=== PATIENT | male | born 1940 | race Caucasian/White ===

== ENCOUNTER 2019-10-02 12:02 | Inpatient (IN) | payer BC, OTHER ==
--- NOTE | 2019-10-02 12:11 | PDOC ---
History of Present Illness - General Chief Complaint: Shortness of Breath Stated Complaint: SHORT OF BREATH Time Seen by Provider: 10/02/19 12:07 History Source: Patient, Family Exam Limitations: No Limitations - History of Present Illness Initial Comments: 10/02/19 12:10 HPI 79-year-old male with history of aortic stenosis s/p bovine valve replacement in 2016 (only on ASA), hypertension, hyperlipidemia, BPH presenting from urgent care complaining of fevers, shortness of breath and dizziness x 3 days. He states he has been experiencing shortness of breath with mild exertion/walking, associated with lightheadedness and dizziness; improves with rest and sitting still. He has been having intermittent fevers x 2 days, Tmax 102, today no further episodes. today he noticed in the ED that his LLE was swollen and red, but denies any pain/calf tenderness. no prolonged immobilization or h/o PE/DVT. He states that every so often his legs get swollen, but denies noticing in the preceding days to weeks. he went to urgent care [facility], where he had covid 19 swab done, sent to the ED for further evaluation. Denies chest pain, palpitation, weakness, N, V, D, abdominal pain, bladder and bowel problems, focal weakness/paresthesias. No sick contacts or travel to other states except [place] or globally. No new changes in medications. Allergies: Sulfa Past Medical History/ aortic stenosis s/p bovine valve replacement (only on ASA), hypertension, hyperlipidemia, BPH PSH: knee replacements and bovine aortic valve replacement Social history: Lives with family. No tobacco or drug use. occ ETOH/wine use socially Meds: as documented in EMR PMD: Dr Saunders Rip/Mould Operator: Dr Avina Review of systems Constitutional: +fevers. No weakness HEENT: +dizziness. no headache. No congestion. No visual/hearing disturbances. CVS: no cp or syncope. Resp: +shortness of breath. No cough. no hemoptysis and no wheezing. Gastrointestinal: no abdominal pain, nausea, vomiting, diarrhea. Genitourinary: no urinary sx, hematuria. MUSCULOSKELETAL: No joint pain and swelling. No neck or back pain. SKIN: +leg swelling and redness Hematologic: no easy bruising/bleeding. NEUROLOGIC: +dizziness. No headache, LOC or altered mental status. No weakness, numbness or tingling. Psych: no anxiety or depression Allergic/Immunologic: +medication allergies All other systems reviewed and negative, or as documented in HPI. Physical exam General: Well appearing, awake and alert, NAD. HEENT: NCAT, PERRL, EOMI, clear conjunctiva, anicteric, moist mucus membranes, clear oropharynx, no oral lesions.. Neck: neck supple, FROM Resp: +scant wheezing bilaterally, no respiratory distress CVS: RRR, faint holosystolilc murmurs, 2+ peripheral pulses throughout, 2+ BLE pitting peripheral edema Abdomen: soft, NTND, no rebound or guarding. Back: nontender, normal inspection and ROM MSK: BLE pitting edema, LLE>RLE, DAVIS x4, ROM intact. No clubbing or cyanosis. normal bulk and tone. Extremities: no calf tenderness; BLE pitting edema, nontender with LLE>RLE, LLE erythema and pitting edema. Neuro: alert, oriented appropriately; no focal neurologic deficits, speech clear Psych: Calm and cooperative Skin: warm and well perfused, cap refill <2 sec, normal color, no rash or skin discoloration. +LLE erythema, warmth and pitting edema. 10/02/19 12:11 10/02/19 12:30 10/02/19 13:42 10/02/19 13:47 Past History - Medical History Allergies/Adverse Reactions: Allergies Allergy/AdvReac Type Severity Reaction Status Date / Time Sulfa (Sulfonamide Allergy Verified 10/02/19 12:23 Antibiotics) Home Medications: Ambulatory Orders Amlodipine Besylate [Norvasc -] 5 mg PO DAILY #0 tablet 11/26/12 Aspirin Coated [Ecotrin -] 81 mg PO DAILY #0 tablet.ec 11/26/12 Cholecalciferol (Vitamin D3) [Vitamin D-3] 1,000 unit PO DAILY #0 capsule 11/26/12 Pravastatin Sodium [Pravachol -] 20 mg PO HS #0 tablet 11/26/12 Captopril/Hydrochlorothiazide [Capozide 50/25 -] 1 combo PO DAILY 10/02/19 Tamsulosin HCl [Flomax -] 0.4 mg PO HS 10/02/19 Anemia: No Asthma: No Cancer: Yes (prostate 2009-TREATED WITH SEED) Cardiac Disorders: No CVA: No COPD: No CHF: No Dementia: No Diabetes: No GI Disorders: No Disorders: Yes (HX PROSTATE CA) HTN: Yes Hypercholesterolemia: Yes Liver Disease: No Seizures: No Thyroid Disease: No - Surgical History Abdominal Surgery: Yes (HERNIA) Appendectomy: No Cardiac Surgery: No Cholecystectomy: No Lung Surgery: No Neurologic Surgery: No Orthopedic Surgery: Yes (bi-lateral knee replacements) - Psycho-Social/Smoking History Smoking Status: Yes Smoking History: Former smoker Have you smoked in the past 12 months: No Number of Cigarettes Smoked Daily: 0 If you are a former smoker, when did you quit?: OVER 30 YRS Heart Score/ECG Review #1 ECG reviewed & interpreted by me at: 12:55 General ECG Interpretation: Sinus Rhythm, Normal Rate, Normal Intervals Compared to previous ECG there are: No significant change 10/02/19 13:41 EKG normal sinus rhythm 85 bpm, no interval abnormalities, narrow QRS, ST and T wave segments and morphology normal. Nonspecific T wave abnormalities, poor r wave progression, unchanged from prior ED Treatment Course - LABORATORY CBC & Chemistry Diagram: 10/02/19 12:18 10/02/19 12:18 - RADIOLOGY Radiology Studies Ordered: Category Date Time Status CHEST X-RAY PORTABLE* [RAD] Stat Radiology 10/02/19 12:09 Ordered Medical Decision Making - Medical Decision Making 10/02/19 12:36 DDx SOB: ACS, PE, PTX, CHF, COPD exac, pulmonary edema, pleurisy, pneumonia, viral syndrome. effusion. anemia, electrolyte/metabolic derangements. valvular heart disease, DVT, cellulitis, superficial thrombophlebitis prior admit and echo/ekg reviewed. Prior echo in 2016 reviewed with low normal left ventricular systolic function, septal motion abnormality consistent with his prior postoperative management, AVR done in 2016, right ventricular systolic function is grossly normal, some mitral calcification is noted and mitral valve thickening and mild MR, no pe ricardial effusion at that time Interpreted by ED Physician: CXR (1 view): no acute abnormality: no infiltrates, bones appear intact and structures normal alignment, cardiac silhouette within normal limits. no free air under diaphragm, no pneumothorax. sternal sutures in place. EKG normal sinus rhythm 85 bpm, no interval abnormalities, narrow QRS, ST and T wave segments and morphology normal. Nonspecific T wave abnormalities, poor r wave progression, unchanged from prior labs and lytes wnl, magnesium repleted (low ~1.7) trop is elevated 0.11, NSTEMI, atypical sx. known cardiac history such as . now with SOB/dizziness, can be anginal sx vs worsening , with last repair ~4-5 years ago per patient. 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 also leukocytosis 14K, Cellulitis? vs covid 19 with his sx of SOB/fevers (no cough or congestion or viral sx per se) duplex_limited study of BLE. limited in the posterior tibial veins, otherwise no gross DVT noted. LLE erythema, asymmetrical, treat as cellulitis. h/o MRSA, give vancomycin, ancef for cellulitis coverage and reassess. could be possible source of fever. r/o covid 19 infection as well given his respiratory sx (SOB) and fever Plan for admit observation, NSTEMI/r/o covid and LLE cellulitis, to r/o ischemia, serial trops and EKG/tele monitoring. ASA administered, pain controlled, discussion with patient and family at bedside, made aware of impression and plan, questions answered. Mao tele bed to be arranged s/o to [facility] Villarreal 10/02/19 14:14 Discharge - Discharge Information Problems reviewed: Yes Clinical Impression/Diagnosis: Peripheral edema, NSTEMI (non-ST elevated myocardial infarction), Left leg cellulitis, Suspected 2019 novel coronavirus infection Aortic stenosis Qualifiers: Cardiac valve disease etiology: etiology unspecified Qualified Code(s): I35.0 - Nonrheumatic aortic (valve) stenosis Condition: Fair - Admission Yes - Follow up/Referral Referrals: Ralf Boo MD [Primary Care Provider] - - Patient Discharge Instructions - Post Discharge Activity
[2019-10-02 12:44] LABS: BASO % 0.6 % (0-2.0); EOS % 0.3 % (0-4.5); HEMATOCRIT 41.9 % (35.4-49); HEMOGLOBIN 14.6 GM/dl (11.7-16.9); LYMPH % 6.8 % (8-40); MCH 31.3 pg (25.7-33.7); MCHC 34.9 g/dl (32.0-35.9); MEAN CELL VOLUME 89.6 fl (80-96); MEAN PLT VOLUME 9.6 fl (7.5-11.1); NEUT % 88.3 % (42.8-82.8); PLATELET COUNT 163 K/MM3 (134-434); RBC 4.67 M/mm3 (4.00-5.60); RDW 14.6 % (11.9-15.9); WHITE BLOOD COUNT 14.3 K/mm3 (4.0-10.8)
[2019-10-02 12:48] LABS: ALBUMIN 3.6 g/dl (3.4-5.0); BILIRUBIN,TOTAL 1.3 mg/dl (0.2-1); CALCIUM 8.4 mg/dl (8.5-10); MAGNESIUM 1.7 mg/dL (1.8-2.4); POTASSIUM 3.4 mmol/L (3.5-5.1); TOT PROT 6.8 g/dl (6.4-8.2)
[2019-10-02] MEDS ORDERED: MAGNESIUM OXIDE 400 MG TABLET (FP) PO ONE (13:01)
[2019-10-02] MEDS ORDERED: ASPIRIN 81 MG CHEWABLE TABLETS PO ONE (13:04)
[2019-10-02 13:12] LABS: ACTIVATED PTT 27.7 SECONDS (25.2-36.5)
[2019-10-02] MEDS ORDERED: ASPIRIN 81 MG CHEWABLE TABLETS ONE (13:15)
[2019-10-02 13:16] LABS: INR 1.16 (0.82-1.09)
[2019-10-02 13:32] LABS: EPITHELIAL CELLS RARE /hpf
[2019-10-02] MEDS ORDERED: VANCOMYCIN 1,500 MG in DEXTROSE 5%-WATER - 250 ML IVPB ONE (13:46)
[2019-10-02] MEDS ORDERED: CEFAZOLIN 1 GM/D5W 1 GM/50 ML BAG IVPB ONE (13:47)
[2019-10-02] MEDS ORDERED: VANCOMYCIN 1,000 MG VIAL (RESTRICTED TO ID ONLY) ONE (14:24)
[2019-10-02] MEDS ORDERED: ceFAZolin SODIUM 1 GM VIAL ONE ×2 (14:24→20:57)
[2019-10-02 14:29] LABS: N-TERMINAL BNP 2207.4 pg/ml (5-450)
[2019-10-02] MEDS ORDERED: VANCOMYCIN 500 MG VIAL (RESTRICTED TO ID ONLY) ONE (14:37)
--- NOTE | 2019-10-02 15:19 | HP ---
CHIEF COMPLAINT: PCP: Dr. Ralf Boo Cardiology: Dr. Avian HISTORY OF PRESENT ILLNESS: ER course was notable for: (1) (2) (3) Recent Travel: PAST MEDICAL HISTORY: Hypertension Hyperlipidemia Aortic stenosis LLE cellulitis, recurrent Prostate cancer Thyroid nodule PAST SURGICAL HISTORY: Bilateral knee replacements Hernia repair Bilateral conjunctivoplasty Social History: Smoking: former, quit 35 years ago Alcohol: Drugs: Allergies Sulfa (Sulfonamide Antibiotics) Allergy (Verified 10/02/19 12:23) UNKNOWN-DOESN'T REMEMBER HOME MEDICATIONS: Home Medications Medication Instructions Recorded Amlodipine Besylate [Norvasc -] 5 mg PO DAILY #0 tablet 11/26/12 Aspirin Coated [Ecotrin -] 81 mg PO DAILY #0 tablet.ec 11/26/12 Cholecalciferol (Vitamin D3) 1,000 unit PO DAILY #0 capsule 11/26/12 [Vitamin D-3] Pravastatin Sodium [Pravachol -] 20 mg PO HS #0 tablet 11/26/12 Captopril/Hydrochlorothiazide 1 combo PO DAILY 10/02/19 [Capozide 50/25 -] Tamsulosin HCl [Flomax -] 0.4 mg PO HS 10/02/19 REVIEW OF SYSTEMS CONSTITUTIONAL: Absent: fever, chills, diaphoresis, generalized weakness, malaise, loss of appetite, weight change HEENT: Absent: rhinorrhea, nasal congestion, throat pain, throat swelling, difficulty swallowing, mouth swelling, ear pain, eye pain, visual changes CARDIOVASCULAR: Absent: chest pain, syncope, palpitations, irregular heart rate, lightheadedness, peripheral edema RESPIRATORY: Absent: cough, shortness of breath, dyspnea with exertion, orthopnea, wheezing, stridor, hemoptysis GASTROINTESTINAL: Absent: abdominal pain, abdominal distension, nausea, vomiting, diarrhea, constipation, melena, hematochezia GENITOURINARY: Absent: dysuria, frequency, urgency, hesitancy, hematuria, flank pain, genital pain MUSCULOSKELETAL: Absent: myalgia, arthralgia, joint swelling, back pain, neck pain SKIN: Absent: rash, itching, pallor HEMATOLOGIC/IMMUNOLOGIC: Absent: easy bleeding, easy bruising, lymphadenopathy, frequent infections ENDOCRINE: Absent: unexplained weight gain, unexplained weight loss, heat intolerance, cold intolerance NEUROLOGIC: Absent: headache, focal weakness or paresthesias, dizziness, unsteady gait, seizure, mental status changes, bladder or bowel incontinence PSYCHIATRIC: Absent: anxiety, depression, suicidal or homicidal ideation, hallucinations. PHYSICAL EXAMINATION Vital Signs - 24 hr 10/02/19 10/02/19 12:03 13:30 Temperature 98.7 F Pulse Rate 88 86 Pulse Rate [ 85 Apical] Respiratory 20 25 H Rate Blood Pressure 126/77 Blood Pressure 145/77 [Right Arm] O2 Sat by Pulse 96 99 Oximetry (%) GENERAL: Awake, alert, and fully oriented, in no acute distress. HEAD: Normal with no signs of trauma. EYES: Pupils equal, round and reactive to light, extraocular movements intact, sclera anicteric, conjunctiva clear. No lid lag. EARS, NOSE, THROAT: Ears normal, nares patent, oropharynx clear without exudates. Moist mucous membranes. NECK: Normal range of motion, supple without lymphadenopathy, JVD, or masses. LUNGS: Breath sounds equal, clear to auscultation bilaterally. No wheezes, and no crackles. No accessory muscle use. HEART: Regular rate and rhythm, normal S1 and S2 without murmur, rub or gallop. ABDOMEN: Soft, nontender, not distended, normoactive bowel sounds, no guarding, no rebound, no masses. No hepatomegaly or splenomegaly. MUSCULOSKELETAL: Normal range of motion at all joints. No bony deformities or tenderness. No CVA tenderness. UPPER EXTREMITIES: 2+ pulses, warm, well-perfused. No cyanosis. No clubbing. No peripheral edema. LOWER EXTREMITIES: 2+ pulses, warm, well-perfused. No calf tenderness. No peripheral edema. NEUROLOGICAL: Cranial nerves II-XII intact. Normal speech. Normal gait. PSYCHIATRIC: Cooperative. Good eye contact. Appropriate mood and affect. SKIN: Warm, dry, normal turgor, no rashes or lesions noted, normal capillary refill. Laboratory Results - last 24 hr 10/02/19 10/02/19 10/02/19 12:18 12:18 12:18 WBC 14.3 H RBC 4.67 Hgb 14.6 Hct 41.9 MCV 89.6 MCH 31.3 MCHC 34.9 RDW 14.6 Plt Count 163 MPV 9.6 Absolute Neuts (auto) 12.6 Neutrophils % 88.3 H Lymphocytes % 6.8 L Monocytes % 4.0 Eosinophils % 0.3 Basophils % 0.6 PT with INR INR PTT (Actin FS) Sodium 133 L Potassium 3.4 L Chloride 98 Carbon Dioxide 26 Anion Gap 9 BUN 25.0 H Creatinine 1.0 Est GFR (CKD-EPI)AfAm 82.60 Est GFR (CKD-EPI)NonAf 71.27 Random Glucose 112 H Calcium 8.4 L Magnesium 1.7 L Total Bilirubin 1.3 H AST 29 ALT 31 Alkaline Phosphatase 56 Creatine Kinase Troponin I 0.11 H B-Natriuretic Peptide 2207.4 H Total Protein 6.8 Albumin 3.6 Urine Color Urine Appearance Urine pH Urine Protein Urine Glucose (UA) Urine Ketones Urine Blood Urine Nitrite Urine Bilirubin Urine Urobilinogen Ur Leukocyte Esterase Urine RBC Urine WBC Ur Transition Epith Cell 10/02/19 10/02/19 10/02/19 12:18 12:30 13:10 WBC RBC Hgb Hct MCV MCH MCHC RDW Plt Count MPV Absolute Neuts (auto) Neutrophils % Lymphocytes % Monocytes % Eosinophils % Basophils % PT with INR 13.0 INR 1.16 PTT (Actin FS) 27.7 Sodium Potassium Chloride Carbon Dioxide Anion Gap BUN Creatinine Est GFR (CKD-EPI)AfAm Est GFR (CKD-EPI)NonAf Random Glucose Calcium Magnesium Total Bilirubin AST ALT Alkaline Phosphatase Creatine Kinase 105 Troponin I B-Natriuretic Peptide Total Protein Albumin Urine Color Yellow Urine Appearance Clear Urine pH 6.5 Urine Protein Trace Urine Glucose (UA) Negative Urine Ketones Negative Urine Blood 1+ H Urine Nitrite Negative Urine Bilirubin Negative Urine Urobilinogen 1.0 Ur Leukocyte Esterase Negative Urine RBC 40-60 Urine WBC 2-5 Ur Transition Epith Cell Rare ASSESSMENT/PLAN:
--- NOTE | 2019-10-02 15:26 | CON.CARD ---
Cardiology Consult (text) - Consultation Consultation Note: cc: sob, fever hpi: 79 m hx as s/p bio avr 2016, hld, htn, here with sob, fever. Pt reports he has chronic mild rai for years, no recent changes but over past few days did have intermittent fever. No cp palps dizzy loc pnd orthopnea. Left LE has been red past day as well with mild le edema. Sees dr goins for cardio. pmh: per hpi psh: avr social: no tob fam: no premature cad ros: per hpi; all others nl meds: Home Medications Medication Instructions Recorded Amlodipine Besylate [Norvasc -] 5 mg PO DAILY #0 tablet 11/26/12 Aspirin Coated [Ecotrin -] 81 mg PO DAILY #0 tablet.ec 11/26/12 Cholecalciferol (Vitamin D3) 1,000 unit PO DAILY #0 capsule 11/26/12 [Vitamin D-3] Pravastatin Sodium [Pravachol -] 20 mg PO HS #0 tablet 11/26/12 Captopril/Hydrochlorothiazide 1 combo PO DAILY 10/02/19 [Capozide 50/25 -] Tamsulosin HCl [Flomax -] 0.4 mg PO HS 10/02/19 pe: Vital Signs Period Temp Pulse Resp BP Sys/Lau Pulse Ox Last 24 Hr 98.7 F-98.7 F 85-93 20-25 126-145/77-82 96-99 nad no jvd rrr s1s2 no mrg cta bl nl eff aao3 trace le edema bl with erythema of LLE from knee down, no c/c abd nt nd pos bs no jaundice diaphoresis pos dp pt no carotid bruits Laboratory Last Values WBC 14.3 K/mm3 (4.0-10.8) H 10/02/19 12:18 RBC 4.67 M/mm3 (4.00-5.60) 10/02/19 12:18 Hgb 14.6 GM/dl (11.7-16.9) 10/02/19 12:18 Hct 41.9 % (35.4-49) 10/02/19 12:18 MCV 89.6 fl (80-96) 10/02/19 12:18 MCH 31.3 pg (25.7-33.7) 10/02/19 12:18 MCHC 34.9 g/dl (32.0-35.9) 10/02/19 12:18 RDW 14.6 % (11.9-15.9) 10/02/19 12:18 Plt Count 163 K/MM3 (134-434) 10/02/19 12:18 MPV 9.6 fl (7.5-11.1) 10/02/19 12:18 Absolute Neuts (auto) 12.6 K/mm3 10/02/19 12:18 Neutrophils % 88.3 % (42.8-82.8) H 10/02/19 12:18 Lymphocytes % 6.8 % (8-40) L 10/02/19 12:18 Monocytes % 4.0 % (3.8-10.2) 10/02/19 12:18 Eosinophils % 0.3 % (0-4.5) 10/02/19 12:18 Basophils % 0.6 % (0-2.0) 10/02/19 12:18 PT with INR 13.0 SEC (10.2-13.0) 10/02/19 12:30 INR 1.16 (0.82-1.09) 10/02/19 12:30 PTT (Actin FS) 27.7 SECONDS (25.2-36.5) 10/02/19 12:30 Sodium 133 mmol/L (136-145) L 10/02/19 12:18 Potassium 3.4 mmol/L (3.5-5.1) L 10/02/19 12:18 Chloride 98 mmol/L (98-107) 10/02/19 12:18 Carbon Dioxide 26 mmol/L (21-32) 10/02/19 12:18 Anion Gap 9 MMOL/L (8-16) 10/02/19 12:18 BUN 25.0 mg/dl (7-18) H 10/02/19 12:18 Creatinine 1.0 mg/dl (0.55-1.3) 10/02/19 12:18 Est GFR (CKD-EPI)AfAm 82.60 10/02/19 12:18 Est GFR (CKD-EPI)NonAf 71.27 10/02/19 12:18 Random Glucose 112 mg/dl (74-106) H 10/02/19 12:18 Calcium 8.4 mg/dl (8.5-10) L 10/02/19 12:18 Magnesium 1.7 mg/dL (1.8-2.4) L 10/02/19 12:18 Total Bilirubin 1.3 mg/dl (0.2-1) H 10/02/19 12:18 AST 29 U/L (15-37) 10/02/19 12:18 ALT 31 U/L (13-61) 10/02/19 12:18 Alkaline Phosphatase 56 U/L (45-117) 10/02/19 12:18 Creatine Kinase 105 U/L (26-308) 10/02/19 12:18 Troponin I 0.11 ng/ml (0.00-0.05) H 10/02/19 12:18 B-Natriuretic Peptide 2207.4 pg/ml (5-450) H 10/02/19 12:18 Total Protein 6.8 g/dl (6.4-8.2) 10/02/19 12:18 Albumin 3.6 g/dl (3.4-5.0) 10/02/19 12:18 Urine Color Yellow 10/02/19 13:10 Urine Appearance Clear 10/02/19 13:10 Urine pH 6.5 (4.5-8) 10/02/19 13:10 Urine Protein Trace (NEGATIVE) 10/02/19 13:10 Urine Glucose (UA) Negative (NEGATIVE) 10/02/19 13:10 Urine Ketones Negative (NEGATIVE) 10/02/19 13:10 Urine Blood 1+ (NEGATIVE) H 10/02/19 13:10 Urine Nitrite Negative (NEGATIVE) 10/02/19 13:10 Urine Bilirubin Negative (NEGATIVE) 10/02/19 13:10 Urine Urobilinogen 1.0 (0.2-1.0) 10/02/19 13:10 Ur Leukocyte Esterase Negative (NEGATIVE) 10/02/19 13:10 Urine RBC 40-60 /hpf (0-4) 10/02/19 13:10 Urine WBC 2-5 (NEGATIVE) 10/02/19 13:10 Ur Transition Epith Cell Rare /hpf 10/02/19 13:10 ecg: unremarkable cxr: clear echo 02/2016: low nl lvef, nl rv, mild mr, nl bio avr a/p: 79 m hx as s/p bio avr 2016, hld, htn, here with sob, fever. sob: -no signs acs or chf -pt reports this is a chronic symptom for him -check updated echo -possibly cellulitis worsening his chronic sxs, abx per primary LE cellulitis: -on abx avr: -check echo, cont asa hld: -cont statin htn: -cont home meds elevated trops: -borderline trop elevation with nl ck, no ischemic ecg changes, not c/w acs. Trend ce's for now.
[2019-10-02 16:43] VITALS: BMI 37.4
--- NOTE | 2019-10-02 20:05 | HP ---
CHIEF COMPLAINT:fever, shortness of breath and dizziness PCP:Dr. Saunders [employer] Classroom: Dr. Avina HISTORY OF PRESENT ILLNESS: 79-year-old male with a past medical history of aortic stenosis s/p bovine valve replacement in 2016 at [facility] (only on ASA), hypertension, hype rlipidemia, and BPH who presented from Urgent Care complaining of fevers, shortness of breath and dizziness x 3 days. He states he has been experiencing shortness of breath with minimal exertion/walking, associated with lightheadedness and dizziness which improves with rest and sitting still. He has been having intermittent fevers x 2 days with a temperature max of 102, today no further episodes of fever. Today he noticed in the ED that his LLE were swollen and red, but denied any pain/calf tenderness. He denied prolonged immobilization or h/o PE/DVT. He states that his legs get swollen at times. He went to urgent care today where he had COVID swab done and he was sent to the ED for further evaluation. He denied symptoms of chest pain, palpitations, weakness, N, V, D, abdominal pain, bladder and bowel problems, focal weakness/paresthesias. He has had no sick contacts or travel to other states except [place]. No new changes in medications. ER course notable for: 1.WBC 14.9, UA negative for leukoesterase, nitrite, WBC 2-5, CXR with no acute chest pathology. 2. Elevated troponin 0.11. He was seen by Cardiology and no evidence of ACS, EKG with no signs of acute ischemia . 3. Elevated BNP 2207(no prior BNP to compare baseline). He was seen by Cardiology and as per note no decompensated CHF. His findings are consistent with left lower leg cellulitis and elevated troponin is likely mediated demand ischemia. He has an elevated BNP and on clinical exam has some signs of fluid overload, despite CXR is normal. He is being admitted to [facility] to telemetry for further cardiac evaluation and medical management. Past Medical History aortic stenosis hypertension hyperlipidemia BPH Past Surgical History bilateral knee replacements bovine aortic valve replacement in 2016 Social history: lives with family. no tobacco or drug use. occ. ETOH/wine use socially Family History: noncontributory Recent Travel: no Allergies Sulfa (Sulfonamide Antibiotics) Allergy (Verified 10/02/19 12:23) UNKNOWN-DOESN'T REMEMBER HOME MEDICATIONS: Home Medications Medication Instructions Recorded Amlodipine Besylate [Norvasc -] 5 mg PO DAILY #0 tablet 11/26/12 Aspirin Coated [Ecotrin -] 81 mg PO DAILY #0 tablet.ec 11/26/12 Cholecalciferol (Vitamin D3) 1,000 unit PO DAILY #0 capsule 11/26/12 [Vitamin D-3] Pravastatin Sodium [Pravachol -] 20 mg PO HS #0 tablet 11/26/12 Captopril/Hydrochlorothiazide 1 combo PO DAILY 10/02/19 [Capozide 50/25 -] Tamsulosin HCl [Flomax -] 0.4 mg PO HS 10/02/19 REVIEW OF SYSTEMS CONSTITUTIONAL: Absent: fever, chills, diaphoresis, generalized weakness, malaise, loss of appetite, weight change HEENT: Absent: rhinorrhea, nasal congestion, throat pain, throat swelling, difficulty swallowing, mouth swelling, ear pain, eye pain, visual changes CARDIOVASCULAR: Absent: chest pain, syncope, palpitations, irregular heart rate, lightheadedn ess, peripheral edema, dizziness RESPIRATORY: Absent: cough, shortness of breath, dyspnea with exertion, orthopnea, wheezing, stridor, hemoptysis GASTROINTESTINAL: Absent: abdominal pain, abdominal distension, nausea, vomiting, diarrhea, constipation, melena, hematochezia GENITOURINARY: Absent: dysuria, frequency, urgency, hesitancy, hematuria, flank pain, genital pain MUSCULOSKELETAL: Absent: myalgia, arthralgia, joint swelling, back pain, neck pain SKIN: Absent: rash, itching, pallor HEMATOLOGIC/IMMUNOLOGIC: Absent: easy bleeding, easy bruising, lymphadenopathy, frequent infections ENDOCRINE: Absent: unexplained weight gain, unexplained weight loss, heat intolerance, cold intolerance NEUROLOGIC: Absent: headache, focal weakness or paresthesias, dizziness, unsteady gait, seizure, mental status changes, bladder or bowel incontinence PSYCHIATRIC: Absent: anxiety, depression, suicidal or homicidal ideation, hallucinations. PHYSICAL EXAMINATION Vital Signs - 24 hr 10/02/19 10/02/19 10/02/19 12:03 13:30 14:00 Temperature 98.7 F Pulse Rate 88 86 Pulse Rate [ 85 91 H Apical] Respiratory 20 25 H 24 H Rate Blood Pressure 126/77 Blood Pressure 145/77 134/82 [Right Arm] O2 Sat by Pulse 96 99 98 Oximetry (%) 10/02/19 10/02/19 10/02/19 15:16 15:25 16:30 Temperature 98.7 F 98.4 F Pulse Rate 91 H 86 Pulse Rate [ 93 H Apical] Respiratory 23 H 25 H 22 H Rate Blood Pressure 134/82 156/69 Blood Pressure 144/79 [Right Arm] O2 Sat by Pulse 98 97 Oximetry (%) 10/02/19 16:45 Temperature Pulse Rate Pulse Rate [ Apical] Respiratory Rate Blood Pressure Blood Pressure [Right Arm] O2 Sat by Pulse 97 Oximetry (%) General no acute distress Vital signs reviewed afebrile Neuro no focal deficits Lungs CTA nonlabored breathing effort no rales no wheezing no use of accessory muscles Heart s1s2 rate regular Abdomen soft nontender nondistended Extremities warm to touch 2+ lower extremity swelling present bilaterally with left lower extremity redness and heat Skin nail beds and lips pink Mood calm Laboratory Results - last 24 hr 10/02/19 10/02/19 10/02/19 12:18 12:18 12:18 WBC 14.3 H RBC 4.67 Hgb 14.6 Hct 41.9 MCV 89.6 MCH 31.3 MCHC 34.9 RDW 14.6 Plt Count 163 MPV 9.6 Absolute Neuts (auto) 12.6 Neutrophils % 88.3 H Lymphocytes % 6.8 L Monocytes % 4.0 Eosinophils % 0.3 Basophils % 0.6 PT with INR INR PTT (Actin FS) Sodium 133 L Potassium 3.4 L Chloride 98 Carbon Dioxide 26 Anion Gap 9 BUN 25.0 H Creatinine 1.0 Est GFR (CKD-EPI)AfAm 82.60 Est GFR (CKD-EPI)NonAf 71.27 Random Glucose 112 H Calcium 8.4 L Magnesium 1.7 L Total Bilirubin 1.3 H AST 29 ALT 31 Alkaline Phosphatase 56 Creatine Kinase Troponin I 0.11 H B-Natriuretic Peptide 2207.4 H Total Protein 6.8 Albumin 3.6 Urine Color Urine Appearance Urine pH Urine Protein Urine Glucose (UA) Urine Ketones Urine Blood Urine Nitrite Urine Bilirubin Urine Urobilinogen Ur Leukocyte Esterase Urine RBC Urine WBC Ur Transition Epith Cell 10/02/19 10/02/19 10/02/19 12:18 12:30 13:10 WBC RBC Hgb Hct MCV MCH MCHC RDW Plt Count MPV Absolute Neuts (auto) Neutrophils % Lymphocytes % Monocytes % Eosinophils % Basophils % PT with INR 13.0 INR 1.16 PTT (Actin FS) 27.7 Sodium Potassium Chloride Carbon Dioxide Anion Gap BUN Creatinine Est GFR (CKD-EPI)AfAm Est GFR (CKD-EPI)NonAf Random Glucose Calcium Magnesium Total Bilirubin AST ALT Alkaline Phosphatase Creatine Kinase 105 Troponin I B-Natriuretic Peptide Total Protein Albumin Urine Color Yellow Urine Appearance Clear Urine pH 6.5 Urine Protein Trace Urine Glucose (UA) Negative Urine Ketones Negative Urine Blood 1+ H Urine Nitrite Negative Urine Bilirubin Negative Urine Urobilinogen 1.0 Ur Leukocyte Esterase Negative Urine RBC 40-60 Urine WBC 2-5 Ur Transition Epith Cell Rare ASSESSMENT/PLAN: 79-year-old male with a past medical history of aortic stenosis s/p bovine valve replacement in 2016 at [facility] (only on ASA), hypertension, hyperlipidemia, and BPH who presented with fever, shortness of breath and dizzin ess x 3 days. He was found to have leukocytosis, elevated troponin and an elevated BNP. He is being admitted to [facility] to telemetry for further cardiac and medical management. 1. left lower extremity cellulitus currently afberile, has leukocytosis c/w IV vancomycin 1 gm daily and cefazolin 1 gm q8hr Infectious Diseases - Dr. Navarrete consulted 2. elevated troponin /R/O ACS seen by Cardiology and not likely ACS, EKG is nonischemic likely demand in setting of LLE cellulitus continue to trend troponins c/w asa and statin therapy 3. dyspnea/elevated BNP, hx S/P bio AVR for severe currently asymptomatic no evidence of hypoxia or tachycardia, PE low suspicion but has elevated D-Dimer of 1576, venous doppler of BLE with no DVT will check CTA of chest to exclude PE and pending BNP 2207, CXR- normal, on clinical exam lungs CTA, has BLE w/ swelling (has history of orthopedic sx) pending echocardiogram to evaluate EF and aortic anatomy seen by Cardiology- Dr. Marcos - reports dyspnea is chronic with no new changes and no acute CHF echo 02/2016: low nl lvef, nl rv, mild mr, nl bio avr c/w asa as per cardiac guidelines in setting of AVR(bovine) 4. hypertension SBP 130-150 continue with home dose of HCTZ and amlodipine captopril 50mg NF, added lisinopril 5 mg daily for blood pressure control 5. hyperlipidemia c/w statin therapy 6. BPH c/w tamulosin 7. R/O COVID +fever, no hypoxia follow up on COVID nasal swab sent 10/01 maintain droplet/contact isolation precautions maintain 02 sat >90% DVT Prophylaxis SCD's lovenox 40 mg daily FEN no IV fluids in setting of elevated BNP BMP daily and replete electrolytes as needed low sodium diet Visit type - Medication Review Med list reviewed for High Risk Meds patients 65 and older: Yes - Emergency Visit Emergency Visit: Yes ED Registration Date: 10/02/19 Care time: The patient presented to the Emergency Department on the above date and was hospitalized for further evaluation of their emergent condition. - New Patient This patient is new to me today: Yes Date on this admission: 10/03/19 - Critical Care Critical Care patient: No
[2019-10-02] MEDS ORDERED: DEXTROSE 5%-WATER - 50 ML IVPB ONE (20:57)
[2019-10-02] MEDS: CEFAZOLIN 1 GM in DEXTROSE 5%-WATER - 50 ML IVPB SCH (21:16)
[2019-10-02] MEDS: ATORVASTATIN CA 10 MG TABLET (FP) PO SCH (21:16)
[2019-10-02] MEDS: TAMSULOSIN HCL 0.4 MG CAP PO SCH (21:16)
[2019-10-02] MEDS ORDERED: HEPARIN NA (PORCINE) 5,000 UNITS/ML 1ML VIAL SQ SCH (22:00)
[2019-10-03] MEDS ORDERED: POTASSIUM CHLORIDE TABS 20 MEQ TABLET.ER (FP) PO ONE (01:25)
[2019-10-03] MEDS ORDERED: ceFAZolin SODIUM 1 GM VIAL ONE (06:19)
[2019-10-03] MEDS ORDERED: DEXTROSE 5%-WATER - 50 ML IVPB ONE (06:19)
[2019-10-03] MEDS: CEFAZOLIN 1 GM in DEXTROSE 5%-WATER - 50 ML IVPB SCH (06:27)
[2019-10-03 08:09] LABS: BASO % 0.2 % (0-2.0); EOS % 1.3 % (0-4.5); HEMATOCRIT 38.9 % (35.4-49); HEMOGLOBIN 13.2 GM/dL (11.7-16.9); LYMPH % 9.1 % (8-40); MCH 31.2 pg (25.7-33.7); MCHC 34.1 g/dl (32.0-35.9); MEAN CELL VOLUME 91.6 fl (80-96); MEAN PLT VOLUME 9.6 fl (7.5-11.1); MONO % 5.4 % (3.8-10.2); PLATELET COUNT 128 K/MM3 (134-434); RBC 4.24 M/mm3 (4.00-5.60); RDW 15.2 % (11.9-15.9); WHITE BLOOD COUNT 10.2 K/mm3 (4.0-10.0)
[2019-10-03 08:34] LABS: POTASSIUM 3.7 mmol/L (3.5-5.1)
[2019-10-03 08:46] LABS: ALBUMIN 2.8 g/dl (3.4-5.0); BILIRUBIN,TOTAL 0.7 mg/dL (0.2-1); BLOOD UREA NITROGEN 17.1 mg/dL (7-18); CALCIUM 8.4 mg/dL (8.5-10.1); CREATININE 0.8 mg/dL (0.55-1.3); MAGNESIUM 2.1 mg/dL (1.8-2.4); TOT PROT 6.2 g/dl (6.4-8.2)
[2019-10-03] MEDS: ENOXAPARIN NA (PORCINE) 40 MG/0.4 ML DISP.SYRIN SQ SCH (09:00)
[2019-10-03] MEDS: CHOLECALCIFEROL (VIT D3) 1,000 UNIT (25 MCG) TABLET PO SCH (09:01)
[2019-10-03] MEDS: amLODIPine BESYLATE 5 MG TABLET (FP) PO SCH (09:01)
[2019-10-03] MEDS: LISINOPRIL 5 MG TABLET (FP) PO SCH (09:01)
[2019-10-03] MEDS: ASPIRIN COATED 81 MG TABLET.EC PO SCH (09:01)
[2019-10-03] MEDS: HYDROCHLOROTHIAZIDE 25 MG TABLET (FP) PO SCH (09:01)
--- NOTE | 2019-10-03 09:24 | EKG ---
Test Reason : Blood Pressure : / mmHG Vent. Rate : 085 BPM Atrial Rate : 085 BPM P-R Int : 186 ms QRS Dur : 102 ms QT Int : 390 ms P-R-T Axes : 086 -57 007 degrees QTc Int : 464 ms NORMAL SINUS RHYTHM LEFT AXIS DEVIATION PULMONARY DISEASE PATTERN ABNORMAL ECG WHEN COMPARED WITH ECG OF 20-JUL-2014 16:54, NO SIGNIFICANT CHANGE WAS FOUND Confirmed by MD AUGUSTA, ROYA ([id number]) on 10/03/2019 9:23:51 AM Referred By: KEELY BUSTILLO Confirmed By:ROYA DERAS MD
[2019-10-03] MEDS ORDERED: CAPTOPRIL PO SCH (10:00)
[2019-10-03] MEDS ORDERED: HYDROCHLOROTHIAZIDE PO SCH (10:00)
[2019-10-03] MEDS ORDERED: VANCOMYCIN 1 GM in D5W (PRE-DOCKED) 1,000 MG/250 ML IVPB SCH ×2 (10:00→15:00)
[2019-10-03] MEDS ORDERED: INSULIN (LEVEMIR) 100 UNITS/ML UNITS SQ ONE (11:10)
[2019-10-03] MEDS ORDERED: INSULIN (NOVOLOG) ASPART 100 UNITS/ML 10ML VIAL ONE (11:10)
--- NOTE | 2019-10-03 11:39 | PN ---
Progress Note (short form) - Note Progress Note: ID CONSULT DICTATED RECURRENT CELLULITIS L LE FEVER/ LEUKOCYTOSIS R/O SEPSIS S/P AVR 2016 THROMBOCYTOPENIA OBTAIN BC EMPIRIC VANCOMYCIN/ CEFTRIAXONE
--- NOTE | 2019-10-03 12:22 | ECHO ---
Version: 1 Name: CRYSTAL DIETRICH Exam: Adult Echocardiogram Study Date: 10/03/2019, 10:34 AM Age: 79 Years MMode/2D Measurements & Calculations IVSd: 1.19 cm LVIDs: 2.8 cm LVIDd: 4.4 cm LVPWd: 1.01 cm LAV (MOD-bp): 67.2 ml LVOT diam: 1.99 cm Ao root diam: 2.33 cm LA dimension: 3.5 cm Doppler Measurements & Calculations MV E max mike: 143.0 cm/sec Med E/e': 42.4 MV A max mike: 71.0 cm/sec Med Peak E' Mike: 3.4 cm/sec MV E/A: 2.01 Lat E/e': 13.3 Lat Peak E' Mike: 10.8 cm/sec MR max P.7 mmHg Ao max P.2 mmHg ANH(I,D): 0.99 cm Ao mean P.7 mmHg LV V1 mean: 48.7 cm/sec Ao V2 max: 213.1 cm/sec LV V1 mean P.16 mmHg Left Ventricle The left ventricular size, thickness and function are normal. EF 67%. Abnormal diastolic relaxation. Right Ventricle The right ventricle is normal in size and function. Atria Normal left and right atrial size and function. Mitral Valve Mitral annular calcification. There is mild mitral regurgitation. Tricuspid Valve The tricuspid valve is normal in structure and function. There is trace tricuspid regurgitation. Aortic Valve There is a bioprosthetic aortic valve. Pulmonic Valve The pulmonic valve is not well seen, but is grossly normal. Great Vessels The aortic root is normal size. Summary Statements The left ventricular size, thickness and function are normal Abnormal diastolic relaxation The right ventricle is normal in size and function. Normal left and right atrial size and function. Mitral annular calcification There is mild mitral regurgitation. The tricuspid valve is normal in structure and function. There is trace tricuspid regurgitation. There is a bioprosthetic aortic valve. EF 67% MD Santosh Montero 10/03/2019, 12:21 PM Ordering Physician: Layne Villarreal Performed By: Loree Moore
[2019-10-03] MEDS ORDERED: DEXTROSE 5%-WATER 100 ML IVPB ONE (12:35)
[2019-10-03] MEDS: CEFTRIAXONE 2 GM in DEXTROSE 5%-WATER 100 ML IVPB SCH (12:47)
--- NOTE | 2019-10-03 12:52 | PN ---
Progress Note (short form) - Note Progress Note: cc: sob, fever s: complains of leg pain. no chest pain, palps dizziness, dyspnea Current Medications Generic Name Dose Route Start Last Admin Trade Name Alon PRN Reason Stop Dose Admin Amlodipine Besylate 5 mg 10/03/19 10:00 10/03/19 09:01 Norvasc - PO 5 mg DAILY VIOLET Administration Aspirin 81 mg 10/03/19 10:00 10/03/19 09:01 Ecotrin - PO 81 mg DAILY VIOLET Administration Atorvastatin Calcium 10 mg 10/02/19 22:00 10/02/19 21:16 Lipitor - PO 10 mg HS VIOLET Administration Cholecalciferol 1,000 unit 10/03/19 10:00 10/03/19 09:01 Vitamin D3 - PO 1,000 unit DAILY VIOLET Administration Enoxaparin Sodium 40 mg 10/03/19 10:00 10/03/19 09:00 Lovenox - SQ 40 mg DAILY VIOLET Administration Hydrochlorothiazide 25 mg 10/03/19 10:00 10/03/19 09:01 Hctz - PO 25 mg DAILY VIOLET Administration Vancomycin HCl 1,000 mg in 250 mls @ 166.667 mls/hr 10/03/19 11:45 Vancomycin (Pre-Docked) IVPB Q12H VIOLET Protocol Ceftriaxone Sodium 2 gm/ 100 mls @ 100 mls/hr 10/03/19 11:45 10/03/19 12:47 Dextrose IVPB 100 mls/hr DAILY VIOLET Administration Protocol Lisinopril 5 mg 10/03/19 10:00 10/03/19 09:01 Prinivil PO 5 mg DAILY VIOLET Administration Tamsulosin HCl 0.4 mg 10/02/19 22:00 10/02/19 21:16 Flomax - PO 0.4 mg HS VIOLET Administration Vital Signs Period Temp Pulse Resp BP Sys/Lau Pulse Ox Last 24 Hr 97.2 F-98.7 F 85-95 20-25 126-156/63-82 94-99 nad no jvd rrr s1s2 no mrg cta bl nl eff aao3 trace le edema bl with erythema of LLE from knee down, no c/c abd nt nd pos bs no jaundice diaphoresis pos dp pt no carotid bruits ecg: unremarkable cxr: clear echo 02/2016: low nl lvef, nl rv, mild mr, nl bio avr echo 09/2019 nl LV/RV function, mild MR, tr TR, bio AVR a/p: 79 m hx as s/p bio avr 2016, hld, htn, here with sob, fever. sob: -no signs acs or chf -pt reports this is a chronic symptom for him -echo unremarkable -possibly cellulitis worsening his chronic sxs, abx per primary LE cellulitis: -on abx avr: -stable on echo here, cont asa hld: -cont statin htn: -cont home meds elevated trops: -borderline trop elevation with nl ck, no ischemic ecg changes, not c/w acs
--- NOTE | 2019-10-03 13:00 | CONS ---
INFECTIOUS DISEASE CONSULTATION DATE OF CONSULTATION: DATE OF DICTATION: 10/03/2019 HISTORY: The patient is a 79-year-old male who is evaluated for recurrent cellulitis of the left lower extremity. The patient felt well until Monday, September 30, 2019. He reported developing some dizziness and some shortness of breath. He also stated he had fever to 102 at home. He had presented to an urgent care center. On the day prior to admission he noted erythema, warmth and swelling of his left lower extremity. Patient has had a history of left lower extremity cellulitis and was hospitalized in 2012 and 2014. Now, as before, there is no history of any traumatic injury, insect or animal bites or scratches. He denies any tinea pedis or vascular surgery of the left lower extremity. A wound culture from 2012 was positive for MRSA. He is status post aortic valve replacement with a bioprosthetic valve in 2015. PAST MEDICAL HISTORY: Positive for recurrent cellulitis of the left lower extremity, COPD, hypertension, aortic stenosis, hyperlipidemia, BPH, also includes osteoarthritis and prostate cancer. PAST SURGICAL HISTORY: Status post bilateral total knee replacements, bioprosthetic aortic valve replacement 2015. ALLERGIES: To SULFA. MEDICATIONS AT THIS TIME: Include cefazolin, vancomycin, Flomax, Lovenox, amlodipine, Lipitor, Prinivil, aspirin, hydrochlorothiazide. SOCIAL HISTORY: He resides in the community. He is a , former smoker. He has a glass of wine daily. SYSTEMS REVIEW: Neurologic: No loss of consciousness, seizure activity, focal weakness. Cardiac: Negative chest pain or palpitations. Respiratory: As per HPI. Gastrointestinal: Negative vomiting or diarrhea. Genitourinary: Negative for urinary tract infection. LABORATORY DATA: White count on admission 14.3, hematocrit 38.9, platelets 128. Urine analysis 2 to 5 white cells. Liver enzymes normal. Creatinine 0.8. PHYSICAL EXAMINATION: General: He is awake and alert. He is in no acute distress. Vital Signs: Temperature 97.2, blood pressure 130/72, pulse 88 regular, respirations 20 per minute. HEENT: Sclerae are anicteric. Heart: Sounds S1, S2. Lungs: Clear. Abdomen: Soft, nontender. Extremities: Examination of the left lower extremity, there is swelling of the left lower extremity from below the knee to above the ankle. There is confluent erythema involving the pretibial area and extending to the calf area. There are several areas of more intense erythema. These are patchy areas below the left knee on the medial upper calf and the area of the left lateral malleolus. IMPRESSION: 1. Recurrent cellulitis of the left lower extremity. 2. Fever, leukocytosis. Rule out sepsis secondary to skin source. 3. History of aortic valve replacement. Obtain blood cultures. Doppler exam negative for DVT. Pending cultures, empiric antibiotic coverage in this patient with a prosthetic valve with vancomycin and ceftriaxone. Elevation, analgesics. Thank you for the kind referral. JATIN ESPARZA M.D. [id number]
[2019-10-03] MEDS: VANCOMYCIN 1 GRAM (PRE-DOCKED) 1,000 MG/250 ML BAG IVPB SCH ×2 (13:18→23:13)
--- NOTE | 2019-10-03 15:24 | PN ---
Physical Exam: SUBJECTIVE: Patient seen and examined at bedside this morning. Patient looks comfortable, walking around the room. He denies any cough, colds, chest pain, SOB, abdominal pain, diarrhea, urinary symptoms. No acute events overnight. No fevers reported since admission. Patient reported he had redness and swelling on his left leg for a couple of days, which usually occurs every few years, reporting it spontaneously resolves on its own. Otherwise, patient reported fever at home for the past 2 days with TMax of 102. OBJECTIVE: Vital Signs Temperature 97.2 F L 10/03/19 06:00 Pulse Rate 88 10/03/19 06:00 Respiratory Rate 10/03/19 08:07 Blood Pressure 130/72 10/03/19 06:00 O2 Sat by Pulse Oximetry (%) 97 10/03/19 08:07 GENERAL: The patient is awake, alert, and fully oriented, in no acute distress. HEAD: Normal with no signs of trauma. EYES: PERRLA, EOMI, sclera anicteric, conjunctiva clear. ENT: moist mucous membranes. NECK: full range of motion, supple. LUNGS: Breath sounds equal, clear to auscultation bilaterally HEART: Regular rate and rhythm, S1, S2 ABDOMEN: Soft, nontender, nondistended, normoactive bowel sounds EXTREMITIES: 2+ pulses, warm, well-perfused, LLE: Trace edema, +scattered erythematous, nontender patches NEUROLOGICAL: Cranial nerves II through XII grossly intact. Normal speech PSYCH: Normal mood, normal affect. SKIN: Warm, dry, normal turgor Laboratory Results - last 24 hr 10/02/19 10/02/19 10/02/19 12:30 23:00 23:00 WBC RBC Hgb Hct MCV MCH MCHC RDW Plt Count MPV Absolute Neuts (auto) Neutrophils % Lymphocytes % Monocytes % Eosinophils % Basophils % Nucleated RBC % D-Dimer 1576 H Sodium Potassium Chloride Carbon Dioxide Anion Gap BUN Creatinine Est GFR (CKD-EPI)AfAm Est GFR (CKD-EPI)NonAf Random Glucose Hemoglobin A1c % Calcium Magnesium Total Bilirubin AST ALT Alkaline Phosphatase Troponin I 0.08 H Total Protein Albumin Triglycerides Cholesterol Total LDL Cholesterol HDL Cholesterol TSH COVID-19 ([facility]) Not detected 10/03/19 10/03/19 10/03/19 06:58 06:58 12:46 WBC 10.2 H RBC 4.24 Hgb 13.2 Hct 38.9 MCV 91.6 MCH 31.2 MCHC 34.1 RDW 15.2 Plt Count 128 L D MPV 9.6 D Absolute Neuts (auto) 8.6 H Neutrophils % 84.0 H Lymphocytes % 9.1 Monocytes % 5.4 Eosinophils % 1.3 Basophils % 0.2 Nucleated RBC % 0 D-Dimer Sodium 139 Potassium 3.7 Chloride 103 Carbon Dioxide 28 Anion Gap 8 BUN 17.1 Creatinine 0.8 Est GFR (CKD-EPI)AfAm 98.47 Est GFR (CKD-EPI)NonAf 84.96 Random Glucose 99 Hemoglobin A1c % 5.9 Calcium 8.4 L Magnesium 2.1 Total Bilirubin 0.7 AST 20 ALT 25 Alkaline Phosphatase 71 Troponin I 0.09 H Total Protein 6.2 L Albumin 2.8 L Triglycerides 81 Cholesterol 104 Total LDL Cholesterol 43 HDL Cholesterol 46 TSH 0.79 D COVID-19 ([facility]) Active Medications Generic Name Dose Route Start Last Admin Trade Name Freq PRN Reason Stop Dose Admin Amlodipine Besylate 5 mg 10/03/19 10:00 10/03/19 09:01 Norvasc - PO 5 mg DAILY VIOLET Administration Aspirin 81 mg 10/03/19 10:00 10/03/19 09:01 Ecotrin - PO 81 mg DAILY VIOLET Administration Atorvastatin Calcium 10 mg 10/02/19 22:00 10/02/19 21:16 Lipitor - PO 10 mg HS VIOLET Administration Cholecalciferol 1,000 unit 10/03/19 10:00 10/03/19 09:01 Vitamin D3 - PO 1,000 unit DAILY VIOLET Administration Enoxaparin Sodium 40 mg 10/03/19 10:00 10/03/19 09:00 Lovenox - SQ 40 mg DAILY VIOLET Administration Hydrochlorothiazide 25 mg 10/03/19 10:00 10/03/19 09:01 Hctz - PO 25 mg DAILY VIOLET Administration Vancomycin HCl 1,000 mg in 250 mls @ 166.667 mls/hr 10/03/19 11:45 10/03/19 13:18 Vancomycin (Pre-Docked) IVPB 166.667 mls/hr Q12H VIOLET Administration Protocol Ceftriaxone Sodium 2 gm/ 100 mls @ 100 mls/hr 10/03/19 11:45 10/03/19 12:47 Dextrose IVPB 100 mls/hr DAILY VIOLET Administration Protocol Lisinopril 5 mg 10/03/19 10:00 10/03/19 09:01 Prinivil PO 5 mg DAILY VIOLET Administration Tamsulosin HCl 0.4 mg 10/02/19 22:00 10/02/19 21:16 Flomax - PO 0.4 mg HS VIOLET Administration ASSESSMENT/PLAN: Patient is a 79-year-old male with a past medical history of aortic stenosis s/p bovine valve replacement in 2016 at [facility] (only on ASA), hypertension, hyperlipidemia, and BPH who presented with fever, shortness of breath and dizziness x 3 days. He was found to have leukocytosis, elevated troponin and an elevated BNP. #LLE cellulitis -leukocytosis, fevers at home, r/o sepsis (no recorded fevers since admission) -blood cultures pending -continue empiric IV Ceftriaxone and Vancomycin -ID (Dr. Navarrete) consulted. REcommendations appreciated #Elevated troponin -borderline trop elevation with nl ck, no ischemic ecg changes, not c/w acs -Cardio (Dr. Gan) consulted. Recommendations appreciated. #SOB/Elevated BNP -no signs of ACS or CHF -echo 09/2019 nl LV/RV function, mild MR, tr TR, bio AVR -SOB is chronic for patient #Elevated D-dimer -Chest CTA - no PE -LE US - non diagnostic, but no evidence of DVT -will repeat LE US #Hx of s/p valve replacement -stable on echo -continue ASA #HTN -Continue home HCTZ 25mg, Lisinopril 5mg, and Amlodipine 5 mg daily #HLD -Continue Lipitor 10mg po hs #BPH -Tamsulosin 0.4mg daily #FEN -Not on any standing fluids -Electrolytes wnl, routine bmp monitoring -Sodium controlled diet #Prophylaxis -Lovenox 40mg sq daily #Disposition -full code -tele Visit type - Emergency Visit Emergency Visit: Yes ED Registration Date: 10/02/19 Care time: The patient presented to the Emergency Department on the above date and was hospitalized for further evaluation of their emergent condition. - New Patient This patient is new to me today: Yes Date on this admission: 10/03/19 - Critical Care Critical Care patient: No - Medication Review Med list reviewed for High Risk Meds patients 65 and older: Yes ATTENDING PHYSICIAN STATEMENT I saw and evaluated the patient. I reviewed the resident's note and discussed the case with the resident. I agree with the resident's findings and plan as documented. SUBJECTIVE: OBJECTIVE: ASSESSMENT AND PLAN:
--- NOTE | 2019-10-03 16:52 | PN ---
Teaching Attending Note Name of Resident: Maxine Ac ATTENDING PHYSICIAN STATEMENT I saw and evaluated the patient. I reviewed the resident's note and discussed the case with the resident. I agree with the resident's findings and plan as documented. SUBJECTIVE: Pt. seen and examined at bedside, NAD, denies complaints, admitted for evaluation of LLE erythema, ?cellulitis v.s. adverse drug reaction, VSS. OBJECTIVE: GENERAL: The patient is awake, alert, and fully oriented, in no acute distress. HEAD: Normal with no signs of trauma. EYES: PERRLA, EOMI, sclera anicteric, conjunctiva clear. ENT: moist mucous membranes. NECK: full range of motion, supple. LUNGS: Breath sounds equal, clear to auscultation bilaterally HEART: Regular rate and rhythm, S1, S2 ABDOMEN: Soft, nontender, nondistended, normoactive bowel sounds EXTREMITIES: 2+ pulses, warm, well-perfused, LLE: Trace edema, +scattered erythematous, nontender patches NEUROLOGICAL: Cranial nerves II through XII grossly intact. Normal speech PSYCH: Normal mood, normal affect. SKIN: Warm, dry, normal turgor Vital Signs - 24 hr 10/02/19 10/02/19 10/03/19 21:00 22:00 01:37 Temperature 98.6 F 98.6 F 98.1 F Pulse Rate 95 H 95 H 87 Respiratory 20 20 20 Rate Blood Pressure 131/63 131/63 126/74 O2 Sat by Pulse 94 L 94 L Oximetry (%) 10/03/19 10/03/19 10/03/19 06:00 08:07 10:00 Temperature 97.2 F L 98.1 F Pulse Rate 88 87 Respiratory 20 20 20 Rate Blood Pressure 130/72 135/67 O2 Sat by Pulse 96 97 98 Oximetry (%) 10/03/19 14:10 Temperature 98.1 F Pulse Rate 83 Respiratory 20 Rate Blood Pressure 117/66 O2 Sat by Pulse Oximetry (%) Laboratory Results - last 24 hr 10/02/19 10/02/19 10/02/19 12:30 23:00 23:00 WBC RBC Hgb Hct MCV MCH MCHC RDW Plt Count MPV Absolute Neuts (auto) Neutrophils % Lymphocytes % Monocytes % Eosinophils % Basophils % Nucleated RBC % D-Dimer 1576 H Sodium Potassium Chloride Carbon Dioxide Anion Gap BUN Creatinine Est GFR (CKD-EPI)AfAm Est GFR (CKD-EPI)NonAf Random Glucose Hemoglobin A1c % Calcium Magnesium Total Bilirubin AST ALT Alkaline Phosphatase Troponin I 0.08 H Total Protein Albumin Triglycerides Cholesterol Total LDL Cholesterol HDL Cholesterol TSH COVID-19 ([facility]) Not detected 10/03/19 10/03/19 10/03/19 06:58 06:58 12:46 WBC 10.2 H RBC 4.24 Hgb 13.2 Hct 38.9 MCV 91.6 MCH 31.2 MCHC 34.1 RDW 15.2 Plt Count 128 L D MPV 9.6 D Absolute Neuts (auto) 8.6 H Neutrophils % 84.0 H Lymphocytes % 9.1 Monocytes % 5.4 Eosinophils % 1.3 Basophils % 0.2 Nucleated RBC % 0 D-Dimer Sodium 139 Potassium 3.7 Chloride 103 Carbon Dioxide 28 Anion Gap 8 BUN 17.1 Creatinine 0.8 Est GFR (CKD-EPI)AfAm 98.47 Est GFR (CKD-EPI)NonAf 84.96 Random Glucose 99 Hemoglobin A1c % 5.9 Calcium 8.4 L Magnesium 2.1 Total Bilirubin 0.7 AST 20 ALT 25 Alkaline Phosphatase 71 Troponin I 0.09 H Total Protein 6.2 L Albumin 2.8 L Triglycerides 81 Cholesterol 104 Total LDL Cholesterol 43 HDL Cholesterol 46 TSH 0.79 D COVID-19 ([facility]) Home Medications Medication Instructions Recorded Amlodipine Besylate [Norvasc -] 5 mg PO DAILY #0 tablet 11/26/12 Aspirin Coated [Ecotrin -] 81 mg PO DAILY #0 tablet.ec 11/26/12 Cholecalciferol (Vitamin D3) 1,000 unit PO DAILY #0 capsule 11/26/12 [Vitamin D-3] Pravastatin Sodium [Pravachol -] 20 mg PO HS #0 tablet 11/26/12 Captopril/Hydrochlorothiazide 1 combo PO DAILY 10/02/19 [Capozide 50/25 -] Tamsulosin HCl [Flomax -] 0.4 mg PO HS 10/02/19 Current Medications Generic Name Dose Route Start Last Admin Trade Name Freq PRN Reason Stop Dose Admin Amlodipine Besylate 5 mg 10/03/19 10:00 10/03/19 09:01 Norvasc - PO 5 mg DAILY VIOLET Administration Aspirin 81 mg 10/03/19 10:00 10/03/19 09:01 Ecotrin - PO 81 mg DAILY VIOLET Administration Atorvastatin Calcium 10 mg 10/02/19 22:00 10/02/19 21:16 Lipitor - PO 10 mg HS VIOLET Administration Cholecalciferol 1,000 unit 10/03/19 10:00 10/03/19 09:01 Vitamin D3 - PO 1,000 unit DAILY VIOLET Administration Enoxaparin Sodium 40 mg 10/03/19 10:00 10/03/19 09:00 Lovenox - SQ 40 mg DAILY VIOLET Administration Hydrochlorothiazide 25 mg 10/03/19 10:00 10/03/19 09:01 Hctz - PO 25 mg DAILY VIOLET Administration Vancomycin HCl 1,000 mg in 250 mls @ 166.667 mls/hr 10/03/19 11:45 10/03/19 13:18 Vancomycin (Pre-Docked) IVPB 166.667 mls/hr Q12H VIOLET Administration Protocol Ceftriaxone Sodium 2 gm/ 100 mls @ 100 mls/hr 10/03/19 11:45 10/03/19 12:47 Dextrose IVPB 100 mls/hr DAILY VIOLET Administration Protocol Lisinopril 5 mg 10/03/19 10:00 10/03/19 09:01 Prinivil PO 5 mg DAILY VIOLET Administration Tamsulosin HCl 0.4 mg 10/02/19 22:00 10/02/19 21:16 Flomax - PO 0.4 mg HS VIOLET Administration ASSESSMENT AND PLAN: 79 M LLE cellulitis HTN HLD BPH Obesity Chronic venous stasis Plan: Cont. Vancomycin/Ceftriaxone as per ID recs Dermatology consult for ?drug reaction COnt. BP meds, if skin rash does not resolve consider stopping HCTZ Troponemia 2/2 demand, no s/o ACS DVT ppx: Lovenox SC
[2019-10-03] MEDS: ATORVASTATIN CA 10 MG TABLET (FP) PO SCH (21:32)
[2019-10-03] MEDS: TAMSULOSIN HCL 0.4 MG CAP PO SCH (21:32)
[2019-10-04 08:02] LABS: BASO % 0.6 % (0-2.0); EOS % 5.2 % (0-4.5); HEMATOCRIT 39.4 % (35.4-49); HEMOGLOBIN 13.4 GM/dL (11.7-16.9); LYMPH % 15.6 % (8-40); MCH 31.9 pg (25.7-33.7); MCHC 34.1 g/dl (32.0-35.9); MEAN CELL VOLUME 93.6 fl (80-96); MEAN PLT VOLUME 9.9 fl (7.5-11.1); MONO % 9.4 % (3.8-10.2); NEUT % 69.2 % (42.8-82.8); PLATELET COUNT 136 K/MM3 (134-434); RBC 4.21 M/mm3 (4.00-5.60); RDW 15.4 % (11.9-15.9); WHITE BLOOD COUNT 7.7 K/mm3 (4.0-10.0)
[2019-10-04] MEDS ORDERED: DEXTROSE 5%-WATER 100 ML IVPB ONE (08:04)
[2019-10-04 08:20] LABS: ALBUMIN 2.7 g/dl (3.4-5.0); BILIRUBIN,TOTAL 0.7 mg/dL (0.2-1); BLOOD UREA NITROGEN 15.5 mg/dL (7-18); CALCIUM 8.5 mg/dL (8.5-10.1); CREATININE 0.7 mg/dL (0.55-1.3); MAGNESIUM 2.1 mg/dL (1.8-2.4); POTASSIUM 3.6 mmol/L (3.5-5.1)
[2019-10-04] MEDS: CEFTRIAXONE 2 GM in DEXTROSE 5%-WATER 100 ML IVPB SCH (09:32)
[2019-10-04] MEDS: ASPIRIN COATED 81 MG TABLET.EC PO SCH (09:32)
[2019-10-04] MEDS: ENOXAPARIN NA (PORCINE) 40 MG/0.4 ML DISP.SYRIN SQ SCH (09:32)
[2019-10-04] MEDS: CHOLECALCIFEROL (VIT D3) 1,000 UNIT (25 MCG) TABLET PO SCH (09:32)
[2019-10-04] MEDS: HYDROCHLOROTHIAZIDE 25 MG TABLET (FP) PO SCH (09:32)
[2019-10-04] MEDS: amLODIPine BESYLATE 5 MG TABLET (FP) PO SCH (09:32)
[2019-10-04] MEDS: LISINOPRIL 5 MG TABLET (FP) PO SCH (09:32)
[2019-10-04] MEDS: VANCOMYCIN 1 GRAM (PRE-DOCKED) 1,000 MG/250 ML BAG IVPB SCH ×2 (11:13→23:25)
--- NOTE | 2019-10-04 12:32 | PN ---
Progress Note (short form) - Note Progress Note: cc: sob, fever s: complains of leg pain. no chest pain, palps dizziness, dyspnea Current Medications Generic Name Dose Route Start Last Admin Trade Name Alon PRN Reason Stop Dose Admin Amlodipine Besylate 5 mg 10/03/19 10:00 10/04/19 09:32 Norvasc - PO 5 mg DAILY VIOLET Administration Aspirin 81 mg 10/03/19 10:00 10/04/19 09:32 Ecotrin - PO 81 mg DAILY VIOLET Administration Atorvastatin Calcium 10 mg 10/02/19 22:00 10/03/19 21:32 Lipitor - PO 10 mg HS VIOLET Administration Cholecalciferol 1,000 unit 10/03/19 10:00 10/04/19 09:32 Vitamin D3 - PO 1,000 unit DAILY VIOLET Administration Enoxaparin Sodium 40 mg 10/03/19 10:00 10/04/19 09:32 Lovenox - SQ 40 mg DAILY VIOLET Administration Hydrochlorothiazide 25 mg 10/03/19 10:00 10/04/19 09:32 Hctz - PO 25 mg DAILY VIOLET Administration Vancomycin HCl 1,000 mg in 250 mls @ 166.667 mls/hr 10/03/19 11:45 10/04/19 11:13 Vancomycin (Pre-Docked) IVPB 166.667 mls/hr Q12H IVOLET Administration Protocol Ceftriaxone Sodium 2 gm/ 100 mls @ 100 mls/hr 10/03/19 11:45 10/04/19 09:32 Dextrose IVPB 100 mls/hr DAILY VIOLET Administration Protocol Lisinopril 5 mg 10/03/19 10:00 10/04/19 09:32 Prinivil PO 5 mg DAILY VIOLET Administration Tamsulosin HCl 0.4 mg 10/02/19 22:00 10/03/19 21:32 Flomax - PO 0.4 mg HS VIOLET Administration Vital Signs Period Temp Pulse Resp BP Sys/Lau Pulse Ox Last 24 Hr 97.5 F-98.1 F 60-83 18-20 117-152/60-69 60-98 nad no jvd rrr s1s2 no mrg cta bl nl eff aao3 trace le edema bl with erythema of LLE from knee down, no c/c abd nt nd pos bs no jaundice diaphoresis pos dp pt no carotid bruits ecg: unremarkable cxr: clear echo 02/2016: low nl lvef, nl rv, mild mr, nl bio avr echo 09/2019 nl LV/RV function, mild MR, tr TR, bio AVR tele: sinus, NSVT a/p: 79 m hx as s/p bio avr 2015, hld, htn, here with sob, fever. sob: -no signs acs or chf -pt reports this is a chronic symptom for him -echo unremarkable -possibly cellulitis worsening his chronic sxs, abx per primary LE cellulitis: -on abx avr: -stable on echo here, cont asa hld: -cont statin htn: -cont home meds elevated trops: -borderline trop elevation with nl ck, no ischemic ecg changes, not c/w acs NSVT - nl EF on echo here - replete lytes for K>4, Mg >2
--- NOTE | 2019-10-04 14:13 | PN ---
Progress Note, Physician History of Present Illness: AWAKE, ALERT SEATED IN BED NO C/O LEG PAIN AFEBRILE WBC IMPROVED WNL BC PRELIM (-) - Current Medication List Current Medications: Active Medications Amlodipine Besylate (Norvasc -) 5 mg PO DAILY [facility] Last Admin: 10/04/19 09:32 Dose: 5 mg Documented by: Aspirin (Ecotrin -) 81 mg PO DAILY [facility] Last Admin: 10/04/19 09:32 Dose: 81 mg Documented by: Atorvastatin Calcium (Lipitor -) 10 mg PO [facility] Last Admin: 10/03/19 21:32 Dose: 10 mg Documented by: Cholecalciferol (Vitamin D3 -) 1,000 unit PO DAILY [facility] Last Admin: 10/04/19 09:32 Dose: 1,000 unit Documented by: Enoxaparin Sodium (Lovenox -) 40 mg SQ DAILY [facility] Last Admin: 10/04/19 09:32 Dose: 40 mg Documented by: Hydrochlorothiazide (Hctz -) 25 mg PO DAILY [facility] Last Admin: 10/04/19 09:32 Dose: 25 mg Documented by: Vancomycin HCl (Vancomycin (Pre-Docked)) 1,000 mg in 250 mls @ 166.667 mls/hr IVPB Q12H [facility]; Protocol Last Admin: 10/04/19 11:13 Dose: 166.667 mls/hr Documented by: Ceftriaxone Sodium 2 gm/ (Dextrose) 100 mls @ 100 mls/hr IVPB DAILY [facility]; Pro tocol Last Admin: 10/04/19 09:32 Dose: 100 mls/hr Documented by: Lisinopril (Prinivil) 5 mg PO DAILY [facility] Last Admin: 10/04/19 09:32 Dose: 5 mg Documented by: Tamsulosin HCl (Flomax -) 0.4 mg PO [facility] Last Admin: 10/03/19 21:32 Dose: 0.4 mg Documented by: - Objective Vital Signs: Vital Signs Temperature 97.9 F 10/04/19 13:41 Pulse Rate 73 10/04/19 13:41 Respiratory Rate 18 10/04/19 13:41 Blood Pressure 123/69 10/04/19 13:41 O2 Sat by Pulse Oximetry (%) 98 10/04/19 09:00 Constitutional: Yes: No Distress Eyes: Yes: Conjunctiva Clear Cardiovascular: Yes: Regular Rate and Rhythm, S1, S2 Respiratory: Yes: CTA Bilaterally Gastrointestinal: Yes: Normal Bowel Sounds, Soft. No: Tenderness Extremities: No: Other (DECREASED ERYTHEMA/WARMTH L LE) Labs: CBC, BMP 10/04/19 06:25 10/04/19 06:25 INR, PTT INR 1.16 (0.82-1.09) 10/02/19 12:30 Assessment/Plan RECURRENT CELLULITIS L LE LEUKOCYTOSIS IMPROVED S/P AVR CONTINUE CEFTRIAXONE/ VANCOMYCIN ELEVATION CHECK BC
--- NOTE | 2019-10-04 16:58 | PN ---
Physical Exam: SUBJECTIVE: Patient seen and examined OBJECTIVE: Vital Signs Temperature 97.9 F 10/04/19 13:41 Pulse Rate 73 10/04/19 13:41 Respiratory Rate 18 10/04/19 13:41 Blood Pressure 123/69 10/04/19 13:41 O2 Sat by Pulse Oximetry (%) 98 10/04/19 09:00 GENERAL: The patient is awake, alert, and fully oriented, in no acute distress. HEAD: Normal with no signs of trauma. EYES: PERRLA, EOMI, sclera anicteric, conjunctiva clear. ENT: moist mucous membranes. NECK: full range of motion, supple. LUNGS: Breath sounds equal, clear to auscultation bilaterally HEART: Regular rate and rhythm, S1, S2 ABDOMEN: Soft, nontender, nondistended, normoactive bowel sounds EXTREMITIES: 2+ pulses, warm, well-perfused, LLE: Trace edema, +scattered erythematous, nontender patches NEUROLOGICAL: Cranial nerves II through XII grossly intact. Normal speech PSYCH: Normal mood, normal affect. SKIN: Warm, dry, normal turgor Laboratory Results - last 24 hr 10/04/19 10/04/19 10/04/19 06:25 06:25 06:25 WBC 7.7 RBC 4.21 Hgb 13.4 Hct 39.4 MCV 93.6 MCH 31.9 MCHC 34.1 RDW 15.4 Plt Count 136 MPV 9.9 Absolute Neuts (auto) 5.3 Neutrophils % 69.2 Lymphocytes % 15.6 D Monocytes % 9.4 Eosinophils % 5.2 H D Basophils % 0.6 Nucleated RBC % 0 Sodium 140 Potassium 3.6 Chloride 104 Carbon Dioxide 29 Anion Gap 7 L BUN 15.5 Creatinine 0.7 Est GFR (CKD-EPI)AfAm 104.03 Est GFR (CKD-EPI)NonAf 89.76 Random Glucose 105 Calcium 8.5 Magnesium 2.1 Total Bilirubin 0.7 AST 28 ALT 31 Alkaline Phosphatase 84 Troponin I Total Protein 6.0 L Albumin 2.7 L Random Vancomycin 11.7 10/04/19 07:37 WBC RBC Hgb Hct MCV MCH MCHC RDW Plt Count MPV Absolute Neuts (auto) Neutrophils % Lymphocytes % Monocytes % Eosinophils % Basophils % Nucleated RBC % Sodium Potassium Chloride Carbon Dioxide Anion Gap BUN Creatinine Est GFR (CKD-EPI)AfAm Est GFR (CKD-EPI)NonAf Random Glucose Calcium Magnesium Total Bilirubin AST ALT Alkaline Phosphatase Troponin I 0.05 Total Protein Albumin Random Vancomycin Active Medications Generic Name Dose Route Start Last Admin Trade Name Gordonq PRN Reason Stop Dose Admin Amlodipine Besylate 5 mg 10/03/19 10:00 10/04/19 09:32 Norvasc - PO 5 mg DAILY VIOLET Administration Aspirin 81 mg 10/03/19 10:00 10/04/19 09:32 Ecotrin - PO 81 mg DAILY VIOLET Administration Atorvastatin Calcium 10 mg 10/02/19 22:00 10/03/19 21:32 Lipitor - PO 10 mg HS VIOLET Administration Cholecalciferol 1,000 unit 10/03/19 10:00 10/04/19 09:32 Vitamin D3 - PO 1,000 unit DAILY VIOLET Administration Enoxaparin Sodium 40 mg 10/03/19 10:00 10/04/19 09:32 Lovenox - SQ 40 mg DAILY VIOLET Administration Hydrochlorothiazide 25 mg 10/03/19 10:00 10/04/19 09:32 Hctz - PO 25 mg DAILY VIOLET Administration Vancomycin HCl 1,000 mg in 250 mls @ 166.667 mls/hr 10/03/19 11:45 10/04/19 11:13 Vancomycin (Pre-Docked) IVPB 166.667 mls/hr Q12H VIOLET Administration Protocol Ceftriaxone Sodium 2 gm/ 100 mls @ 100 mls/hr 10/03/19 11:45 10/04/19 09:32 Dextrose IVPB 100 mls/hr DAILY VIOLET Administration Protocol Lisinopril 5 mg 10/03/19 10:00 10/04/19 09:32 Prinivil PO 5 mg DAILY VIOLET Administration Tamsulosin HCl 0.4 mg 10/02/19 22:00 10/03/19 21:32 Flomax - PO 0.4 mg HS VIOLET Administration ASSESSMENT/PLAN: Patient is a 79-year-old male with a past medical history of aortic stenosis s/p bovine valve replacement in 2016 at [facility] (only on ASA), hypertension, hyperlipidemia, and BPH who presented with fever, shortness of breath and dizziness x 3 days. He was found to have leukocytosis, elevated troponin and an elevated BNP. #LLE cellulitis -leukocytosis, fevers at home, r/o sepsis (no recorded fevers since admission) -blood cultures no growth to date -continue empiric IV Ceftriaxone and Vancomycin -ID (Dr. Navarrete) consulted. REcommendations appreciated #Elevated troponin -borderline trop elevation with nl ck, no ischemic ecg changes, not c/w acs -Cardio (Dr. Gan) consulted. Recommendations appreciated. #SOB/Elevated BNP -no signs of ACS or CHF -echo 09/2019 nl LV/RV function, mild MR, tr TR, bio AVR -SOB is chronic for patient #Elevated D-dimer -Chest CTA - no PE -LE US - non diagnostic, but no evidence of DVT -will repeat LE US #Hx of s/p valve replacement -stable on echo -continue ASA #HTN -Continue home HCTZ 25mg, Lisinopril 5mg, and Amlodipine 5 mg daily #HLD -Continue Lipitor 10mg po hs #BPH -Tamsulosin 0.4mg daily #FEN -Not on any standing fluids -Electrolytes wnl, routine bmp monitoring -Sodium controlled diet #Prophylaxis -Lovenox 40mg sq daily #Disposition -full code -tele Visit type - Emergency Visit Emergency Visit: Yes ED Registration Date: 10/02/19 Care time: The patient presented to the Emergency Department on the above date and was hospitalized for further evaluation of their emergent condition. - New Patient This patient is new to me today: No - Critical Care Critical Care patient: No - Medication Review Med list reviewed for High Risk Meds patients 65 and older: Yes ATTENDING PHYSICIAN STATEMENT I saw and evaluated the patient. I reviewed the resident's note and discussed the case with the resident. I agree with the resident's findings and plan as documented. SUBJECTIVE: OBJECTIVE: ASSESSMENT AND PLAN:
--- NOTE | 2019-10-04 17:41 | PN ---
Teaching Attending Note Name of Resident: Maxine Ac ATTENDING PHYSICIAN STATEMENT I saw and evaluated the patient. I reviewed the resident's note and discussed the case with the resident. I agree with the resident's findings and plan as documented. SUBJECTIVE: Pt. seen and examined at bedside, NAD, denies complaints, admitted for evaluation of LLE erythema, ?cellulitis v.s. adverse drug reaction, VSS. OBJECTIVE: GENERAL: The patient is awake, alert, and fully oriented, in no acute distress. HEAD: Normal with no signs of trauma. EYES: PERRLA, EOMI, sclera anicteric, conjunctiva clear. ENT: moist mucous membranes. NECK: full range of motion, supple. LUNGS: Breath sounds equal, clear to auscultation bilaterally HEART: Regular rate and rhythm, S1, S2 ABDOMEN: Soft, nontender, nondistended, normoactive bowel sounds EXTREMITIES: 2+ pulses, warm, well-perfused, LLE: Trace edema, erythematous, nontender patches but less than yesterday, palpable Hartman's cyst L popliteal fossa/non-tender NEUROLOGICAL: Cranial nerves II through XII grossly intact. Normal speech PSYCH: Normal mood, normal affect. SKIN: Warm, dry, normal turgor, less erythema on LLE as yesterday Vital Signs - 24 hr 10/03/19 10/04/19 10/04/19 21:00 01:41 05:00 Temperature 98.1 F 97.9 F 97.6 F Pulse Rate 82 74 75 Respiratory 20 20 18 Rate Blood Pressure 139/63 122/69 128/65 O2 Sat by Pulse 95 95 Oximetry (%) 10/04/19 10/04/19 09:00 13:41 Temperature 97.5 F L 97.9 F Pulse Rate 80 73 Respiratory 18 18 Rate Blood Pressure 152/60 123/69 O2 Sat by Pulse 98 Oximetry (%) Microbiology 10/03/19 12:30 Blood - Peripheral Venous Blood Culture - Preliminary NO GROWTH OBTAINED AFTER 24 HOURS, INCUBATION TO CONTINUE FOR 4 DAYS. 10/03/19 12:35 Blood - Peripheral Venous Blood Culture - Preliminary NO GROWTH OBTAINED AFTER 24 HOURS, INCUBATION TO CONTINUE FOR 4 DAYS. Laboratory Results - last 24 hr 10/04/19 10/04/19 10/04/19 06:25 06:25 06:25 WBC 7.7 RBC 4.21 Hgb 13.4 Hct 39.4 MCV 93.6 MCH 31.9 MCHC 34.1 RDW 15.4 Plt Count 136 MPV 9.9 Absolute Neuts (auto) 5.3 Neutrophils % 69.2 Lymphocytes % 15.6 D Monocytes % 9.4 Eosinophils % 5.2 H D Basophils % 0.6 Nucleated RBC % 0 Sodium 140 Potassium 3.6 Chloride 104 Carbon Dioxide 29 Anion Gap 7 L BUN 15.5 Creatinine 0.7 Est GFR (CKD-EPI)AfAm 104.03 Est GFR (CKD-EPI)NonAf 89.76 Random Glucose 105 Calcium 8.5 Magnesium 2.1 Total Bilirubin 0.7 AST 28 ALT 31 Alkaline Phosphatase 84 Troponin I Total Protein 6.0 L Albumin 2.7 L Random Vancomycin 11.7 10/04/19 07:37 WBC RBC Hgb Hct MCV MCH MCHC RDW Plt Count MPV Absolute Neuts (auto) Neutrophils % Lymphocytes % Monocytes % Eosinophils % Basophils % Nucleated RBC % Sodium Potassium Chloride Carbon Dioxide Anion Gap BUN Creatinine Est GFR (CKD-EPI)AfAm Est GFR (CKD-EPI)NonAf Random Glucose Calcium Magnesium Total Bilirubin AST ALT Alkaline Phosphatase Troponin I 0.05 Total Protein Albumin Random Vancomycin Home Medications Medication Instructions Recorded Amlodipine Besylate [Norvasc -] 5 mg PO DAILY #0 tablet 11/26/12 Aspirin Coated [Ecotrin -] 81 mg PO DAILY #0 tablet.ec 11/26/12 Cholecalciferol (Vitamin D3) 1,000 unit PO DAILY #0 capsule 11/26/12 [Vitamin D-3] Pravastatin Sodium [Pravachol -] 20 mg PO HS #0 tablet 11/26/12 Captopril/Hydrochlorothiazide 1 combo PO DAILY 10/02/19 [Capozide 50/25 -] Tamsulosin HCl [Flomax -] 0.4 mg PO HS 10/02/19 Current Medications Generic Name Dose Route Start Last Admin Trade Name Freq PRN Reason Stop Dose Admin Amlodipine Besylate 5 mg 10/03/19 10:00 10/04/19 09:32 Norvasc - PO 5 mg DAILY VIOLET Administration Aspirin 81 mg 10/03/19 10:00 10/04/19 09:32 Ecotrin - PO 81 mg DAILY VIOLET Administration Atorvastatin Calcium 10 mg 10/02/19 22:00 10/03/19 21:32 Lipitor - PO 10 mg HS VIOLET Administration Cholecalciferol 1,000 unit 10/03/19 10:00 10/04/19 09:32 Vitamin D3 - PO 1,000 unit DAILY VIOLET Administration Enoxaparin Sodium 40 mg 10/03/19 10:00 10/04/19 09:32 Lovenox - SQ 40 mg DAILY VIOLET Administration Hydrochlorothiazide 25 mg 10/03/19 10:00 10/04/19 09:32 Hctz - PO 25 mg DAILY VIOLET Administration Vancomycin HCl 1,000 mg in 250 mls @ 166.667 mls/hr 10/03/19 11:45 10/04/19 11:13 Vancomycin (Pre-Docked) IVPB 166.667 mls/hr Q12H VIOLET Administration Protocol Ceftriaxone Sodium 2 gm/ 100 mls @ 100 mls/hr 10/03/19 11:45 10/04/19 09:32 Dextrose IVPB 100 mls/hr DAILY VIOLET Administration Protocol Lisinopril 5 mg 10/03/19 10:00 10/04/19 09:32 Prinivil PO 5 mg DAILY VIOLET Administration Tamsulosin HCl 0.4 mg 10/02/19 22:00 10/03/19 21:32 Flomax - PO 0.4 mg HS VIOLET Administration ASSESSMENT AND PLAN: 79 M LLE cellulitis HTN HLD BPH Obesity Chronic venous stasis Plan: Cont. Vancomycin/Ceftriaxone as per ID recs, will switch to PO abx in AM, blood cx negative COnt. BP meds, if skin rash does not resolve consider stopping HCTZ Troponemia 2/2 demand, no s/o ACS DVT ppx: Lovenox SC
[2019-10-04] MEDS: ATORVASTATIN CA 10 MG TABLET (FP) PO SCH (21:32)
[2019-10-04] MEDS: TAMSULOSIN HCL 0.4 MG CAP PO SCH (21:32)
[2019-10-05 08:08] LABS: ALBUMIN 2.6 g/dl (3.4-5.0); BASO % 0.6 % (0-2.0); BILIRUBIN,TOTAL 0.5 mg/dL (0.2-1); BLOOD UREA NITROGEN 14.2 mg/dL (7-18); CALCIUM 8.5 mg/dL (8.5-10.1); CREATININE 0.7 mg/dL (0.55-1.3); HEMATOCRIT 38.2 % (35.4-49); HEMOGLOBIN 12.9 GM/dL (11.7-16.9); LYMPH % 23.1 % (8-40); MCH 31.2 pg (25.7-33.7); MCHC 33.8 g/dl (32.0-35.9); MEAN CELL VOLUME 92.3 fl (80-96); MEAN PLT VOLUME 9.6 fl (7.5-11.1); MONO % 11.3 % (3.8-10.2); PLATELET COUNT 152 K/MM3 (134-434); POTASSIUM 3.6 mmol/L (3.5-5.1); RBC 4.14 M/mm3 (4.00-5.60); RDW 15.1 % (11.9-15.9); TOT PROT 6.1 g/dl (6.4-8.2); WHITE BLOOD COUNT 7.1 K/mm3 (4.0-10.0)
[2019-10-05] MEDS ORDERED: DEXTROSE 5%-WATER 100 ML IVPB ONE (09:36)
[2019-10-05] MEDS: LISINOPRIL 5 MG TABLET (FP) PO SCH (10:47)
[2019-10-05] MEDS: amLODIPine BESYLATE 5 MG TABLET (FP) PO SCH (10:47)
[2019-10-05] MEDS: CEFTRIAXONE 2 GM in DEXTROSE 5%-WATER 100 ML IVPB SCH (10:47)
[2019-10-05] MEDS: ASPIRIN COATED 81 MG TABLET.EC PO SCH (10:47)
[2019-10-05] MEDS: CHOLECALCIFEROL (VIT D3) 1,000 UNIT (25 MCG) TABLET PO SCH (10:47)
[2019-10-05] MEDS: HYDROCHLOROTHIAZIDE 25 MG TABLET (FP) PO SCH (10:47)
[2019-10-05] MEDS: VANCOMYCIN 1 GRAM (PRE-DOCKED) 1,000 MG/250 ML BAG IVPB SCH (10:48)
--- NOTE | 2019-10-05 11:00 | PN ---
Progress Note (short form) - Note Progress Note: cc: sob, fever s: no chest pain, palps dizziness, dyspnea. feels well, wants to go home Current Medications Generic Name Dose Route Start Last Admin Trade Name Alon PRN Reason Stop Dose Admin Amlodipine Besylate 5 mg 10/03/19 10:00 10/05/19 10:47 Norvasc - PO 5 mg DAILY VIOLET Administration Aspirin 81 mg 10/03/19 10:00 10/05/19 10:47 Ecotrin - PO 81 mg DAILY VIOLET Administration Atorvastatin Calcium 10 mg 10/02/19 22:00 10/04/19 21:32 Lipitor - PO 10 mg HS VIOLET Administration Cholecalciferol 1,000 unit 10/03/19 10:00 10/05/19 10:47 Vitamin D3 - PO 1,000 unit DAILY VIOLET Administration Enoxaparin Sodium 40 mg 10/03/19 10:00 10/04/19 09:32 Lovenox - SQ 40 mg DAILY VIOLET Administration Hydrochlorothiazide 25 mg 10/03/19 10:00 10/05/19 10:47 Hctz - PO 25 mg DAILY VIOLET Administration Vancomycin HCl 1,000 mg in 250 mls @ 166.667 mls/hr 10/03/19 11:45 10/05/19 10:48 Vancomycin (Pre-Docked) IVPB 166.667 mls/hr Q12H VIOLET Administration Protocol Ceftriaxone Sodium 2 gm/ 100 mls @ 100 mls/hr 10/03/19 11:45 10/05/19 10:47 Dextrose IVPB 100 mls/hr DAILY VIOLET Administration Protocol Lisinopril 5 mg 10/03/19 10:00 10/05/19 10:47 Prinivil PO 5 mg DAILY VIOLET Administration Tamsulosin HCl 0.4 mg 10/02/19 22:00 10/04/19 21:32 Flomax - PO 0.4 mg HS VIOLET Administration Vital Signs Period Temp Pulse Resp BP Sys/Lau Pulse Ox Last 24 Hr 97.5 F-98 F 69-87 16-20 123-148/65-76 96-97 nad no jvd rrr s1s2 no mrg cta bl nl eff aao3 no le edema, erythema resolved abd nt nd pos bs no jaundice diaphoresis CBC, BMP 10/05/19 06:15 10/05/19 06:15 ecg: unremarkable cxr: clear echo 02/2016: low nl lvef, nl rv, mild mr, nl bio avr echo 09/2019 nl LV/RV function, mild MR, tr TR, bio AVR tele: sinus a/p: 79 m hx as s/p bio avr 2015, hld, htn, here with sob, fever. sob: -no signs acs or chf -pt reports this is a chronic symptom for him -echo unremarkable -possibly cellulitis worsening his chronic sxs, abx per primary LE cellulitis: -on abx avr: -stable on echo here, cont asa hld: -cont statin htn: -cont home meds elevated trops: -borderline trop elevation with nl ck, no ischemic ecg changes, not c/w acs NSVT - nl EF on echo here cardiac collins stable for dc
--- NOTE | 2019-10-05 13:36 | PN ---
Progress Note, Physician History of Present Illness: AWAKE, ALERT SEATED IN BED NO C/O LEG PAIN AFEBRILE WBC IMPROVED WNL BC PRELIM (-) - Current Medication List Current Medications: Active Medications Amlodipine Besylate (Norvasc -) 5 mg PO DAILY [facility] Last Admin: 10/05/19 10:47 Dose: 5 mg Documented by: Aspirin (Ecotrin -) 81 mg PO DAILY [facility] Last Admin: 10/05/19 10:47 Dose: 81 mg Documented by: Atorvastatin Calcium (Lipitor -) 10 mg PO HS [facility] Last Admin: 10/04/19 21:32 Dose: 10 mg Documented by: Cholecalciferol (Vitamin D3 -) 1,000 unit PO DAILY [facility] Last Admin: 10/05/19 10:47 Dose: 1,000 unit Documented by: Enoxaparin Sodium (Lovenox -) 40 mg SQ DAILY [facility] Last Admin: 10/04/19 09:32 Dose: 40 mg Documented by: Hydrochlorothiazide (Hctz -) 25 mg PO DAILY [facility] Last Admin: 10/05/19 10:47 Dose: 25 mg Documented by: Vancomycin HCl (Vancomycin (Pre-Docked)) 1,000 mg in 250 mls @ 166.667 mls/hr IVPB Q12H [facility]; Protocol Last Admin: 10/05/19 10:48 Dose: 166.667 mls/hr Documented by: Ceftriaxone Sodium 2 gm/ (Dextrose) 100 mls @ 100 mls/hr IVPB DAILY [facility]; Pro tocol Last Admin: 10/05/19 10:47 Dose: 100 mls/hr Documented by: Lisinopril (Prinivil) 5 mg PO DAILY [facility] Last Admin: 10/05/19 10:47 Dose: 5 mg Documented by: Tamsulosin HCl (Flomax -) 0.4 mg PO [facility] Last Admin: 10/04/19 21:32 Dose: 0.4 mg Documented by: - Objective Vital Signs: Vital Signs Temperature 98 F 10/05/19 10:00 Pulse Rate 73 10/05/19 10:00 Respiratory Rate 16 10/05/19 10:00 Blood Pressure 137/75 10/05/19 10:00 O2 Sat by Pulse Oximetry (%) 97 10/05/19 10:00 Constitutional: Yes: No Distress Eyes: Yes: Conjunctiva Clear Cardiovascular: Yes: Regular Rate and Rhythm, S1, S2 Respiratory: Yes: CTA Bilaterally Gastrointestinal: Yes: Normal Bowel Sounds, Soft. No: Tenderness Edema: Yes Integumentary: Yes: Other (ERYTHEMA L LE NEARLY ALL RESOLVED) Labs: CBC, BMP 10/05/19 06:15 10/05/19 06:15 INR, PTT INR 1.16 (0.82-1.09) 10/02/19 12:30 Assessment/Plan RECURRENT CELLULITIS L LE LEUKOCYTOSIS IMPROVED S/P AVR SUBSTITUTE KEFLEX 500MG PO QID X 7D KEEP LE ELEVATED
[2019-10-05 15:18] VITALS: BP 153/92; PULSE 79; TEMP 97.9
--- NOTE | 2019-10-05 18:53 | DS ---
Physical Exam: SUBJECTIVE: Patient seen and examined OBJECTIVE: Vital Signs Period Temp Pulse Resp BP Sys/Lau Pulse Ox Last 24 Hr 97.5 F-98 F 69-87 16-20 124-153/65-92 96-97 PHYSICAL EXAM GENERAL: The patient is awake, alert, and fully oriented, in no acute distress. HEAD: Normal with no signs of trauma. EYES: PERRLA, EOMI, sclera anicteric, conjunctiva clear. ENT: moist mucous membranes. NECK: full range of motion, supple. LUNGS: Breath sounds equal, clear to auscultation bilaterally HEART: Regular rate and rhythm, S1, S2 ABDOMEN: Soft, nontender, nondistended, normoactive bowel sounds EXTREMITIES: 2+ pulses, warm, well-perfused, LLE: Trace edema, +scattered erythematous, nontender patches NEUROLOGICAL: Cranial nerves II through XII grossly intact. Normal speech PSYCH: Normal mood, normal affect. SKIN: Warm, dry, normal turgor LABS Laboratory Results - last 24 hr 10/05/19 10/05/19 06:15 06:15 WBC 7.1 RBC 4.14 Hgb 12.9 Hct 38.2 MCV 92.3 MCH 31.2 MCHC 33.8 RDW 15.1 Plt Count 152 MPV 9.6 Absolute Neuts (auto) 4.2 Neutrophils % 59.0 Lymphocytes % 23.1 D Monocytes % 11.3 H Eosinophils % 6.0 H Basophils % 0.6 Nucleated RBC % 0 Sodium 139 Potassium 3.6 Chloride 104 Carbon Dioxide 30 Anion Gap 5 L BUN 14.2 Creatinine 0.7 Est GFR (CKD-EPI)AfAm 104.03 Est GFR (CKD-EPI)NonAf 89.76 Random Glucose 96 Calcium 8.5 Total Bilirubin 0.5 AST 34 ALT 40 Alkaline Phosphatase 91 Total Protein 6.1 L Albumin 2.6 L HOSPITAL COURSE: Date of Admission:10/02/19 Date of Discharge: 10/05/19 Patient is a 79-year-old male with a past medical history of aortic stenosis s/p bovine valve replacement in 2016 at [facility] (only on ASA), hypertension, hyperlipidemia, and BPH who presented with fever, shortness of breath and dizziness x 3 days. He was found to have leukocytosis, elevated troponin and an elevated BNP. Patient was evaluated by ID, was started on IV Ceftriaxone and Vancomycin with noted improvement of lesions. Patient was also evaluated by cardio for elevated trop and bnp. No further cardiac workup indicated at this time. Patient was also noted to have elevated d-dimer. CHest CTA and LE US was negative for any clots. Patient was discharged to continue Keflex for 7 more days. Minutes to complete discharge: 37 Discharge Summary Problems reviewed: Yes Reason For Visit: NSTEMI R/O COVID CELLULITIS Condition: Improved - Instructions Diet, Activity, Other Instructions: Your visit You were admitted to the hospital because you had a fever. This was probably caused by a skin infection in your legs. You were seen by the infectious disease doctor and you were treated with IV antibiotics. You had no more episodes of fever since you were admitted. You were also evaluated by the roller coaster engineer to check your heart. You had an ultrasound of your heart that was normal. Please follow up with your heart doctor as scheduled. Medications Please take the following medications as prescribed: 1. Keflex 500mg every 6 hours for 7 more days. Please continue your other home medications. Follow ups Please follow up with your primary care doctor (Dr. Boo) within 1 week. Additional info Please call 911 or go to the ED if with any worsening fever, chills, headache, dizziness, chest pain, shortness of breath, belly pain, diarrhea, or any new concerns noted. Referrals: Constantine Avina MD [Staff Physician] - Ralf Boo MD [Primary Care Provider] - Disposition: HOME - Home Medications Comprehensive Discharge Medication List: Ambulatory Orders Amlodipine Besylate [Norvasc -] 5 mg PO DAILY #0 tablet 11/26/12 Aspirin Coated [Ecotrin -] 81 mg PO DAILY #0 tablet.ec 11/26/12 Cholecalciferol (Vitamin D3) [Vitamin D-3] 1,000 unit PO DAILY #0 capsule 11/26/12 Pravastatin Sodium [Pravachol -] 20 mg PO HS #0 tablet 11/26/12 Captopril/Hydrochlorothiazide [Capozide 50/25 -] 1 combo PO DAILY 10/02/19 Tamsulosin HCl [Flomax -] 0.4 mg PO HS 10/02/19 Cephalexin [Keflex] 500 mg PO Q6H #28 capsule 10/05/19 This patient is new to me today: No Emergency Visit: Yes ED Registration Date: 10/02/19 Care time: The patient presented to the Emergency Department on the above date and was hospitalized for further evaluation of their emergent condition. Critical Care patient: No - Discharge Referral Referred to [facility] No ATTENDING PHYSICIAN STATEMENT I saw and evaluated the patient. I reviewed the resident's note and discussed the case with the resident. I agree with the resident's findings and plan as documented. SUBJECTIVE: OBJECTIVE: ASSESSMENT AND PLAN:
--- NOTE | 2019-10-06 13:33 | PN ---
Teaching Attending Note Name of Resident: Maxine Ac ATTENDING PHYSICIAN STATEMENT I saw and evaluated the patient. I reviewed the resident's note and discussed the case with the resident. I agree with the resident's findings and plan as documented. SUBJECTIVE: Pt. seen and examined at bedside, LLE erythema much improved w abx, cultures negative, stable for DC home w/ PO abx and follow w/ PCP. VSS. OBJECTIVE: GENERAL: The patient is awake, alert, and fully oriented, in no acute distress. HEAD: Normal with no signs of trauma. EYES: PERRLA, EOMI, sclera anicteric, conjunctiva clear. ENT: moist mucous membranes. NECK: full range of motion, supple. LUNGS: Breath sounds equal, clear to auscultation bilaterally HEART: Regular rate and rhythm, S1, S2 ABDOMEN: Soft, nontender, nondistended, normoactive bowel sounds EXTREMITIES: 2+ pulses, warm, well-perfused, LLE: Trace edema, erythematous, nontender patches but less than yesterday, palpable Hartman's cyst L popliteal fossa/non-tender NEUROLOGICAL: Cranial nerves II through XII grossly intact. Normal speech PSYCH: Normal mood, normal affect. SKIN: Warm, dry, normal turgor, less erythema on LLE as yesterday Vital Signs - 24 hr 10/05/19 14:00 Temperature 97.9 F Pulse Rate 79 Blood Pressure 153/92 Microbiology 10/03/19 12:30 Blood - Peripheral Venous Blood Culture - Preliminary NO GROWTH OBTAINED AFTER 72 HOURS, INCUBATION TO CONTINUE FOR 2 DAYS. 10/03/19 12:35 Blood - Peripheral Venous Blood Culture - Preliminary NO GROWTH OBTAINED AFTER 72 HOURS, INCUBATION TO CONTINUE FOR 2 DAYS. 10/03/19 21:30 Nares - Mrsa Screen - Right MRSA Screen - Final NO MRSA ISOLATED 10/03/19 21:30 Nares - Mrsa Screen - Left MRSA Screen - Final NO MRSA ISOLATED Home Medications Medication Instructions Recorded Amlodipine Besylate [Norvasc -] 5 mg PO DAILY #0 tablet 11/26/12 Aspirin Coated [Ecotrin -] 81 mg PO DAILY #0 tablet.ec 11/26/12 Cholecalciferol (Vitamin D3) 1,000 unit PO DAILY #0 capsule 11/26/12 [Vitamin D-3] Pravastatin Sodium [Pravachol -] 20 mg PO HS #0 tablet 11/26/12 Captopril/Hydrochlorothiazide 1 combo PO DAILY 10/02/19 [Capozide 50/25 -] Tamsulosin HCl [Flomax -] 0.4 mg PO HS 10/02/19 Cephalexin [Keflex] 500 mg PO Q6H #28 capsule 10/05/19 ASSESSMENT AND PLAN: 79 M LLE cellulitis Sepsis ruled out HTN HLD BPH Obesity Chronic venous stasis Plan: cultures negative, erythema much improved, US negative for DVT DC home with Keflex 500mg qid x7 more days per ID recs COnt. BP meds Troponemia 2/2 demand, no s/o ACS DC home with PCp follow up
== END 2019-10-05 15:30 | disposition home or self-care (01) | DRG 603 ==
LOC: FER 12:02 → J4W 16:22
PROVIDERS: ADMIT Internal Medicine
DX: L03.116 Cellulitis of left lower limb (principal); I24.8 Other forms of acute ischemic heart disease; I47.1 Supraventricular tachycardia; I10 Essential (primary) hypertension; Z95.2 Presence of prosthetic heart valve; E78.5 Hyperlipidemia, unspecified; N40.0 Benign prostatic hyperplasia without lower urinary tract symptoms; Z87.891 Personal history of nicotine dependence; I87.8 Other specified disorders of veins
CPT/HCPCS: 36415; 71045-TC-FY; 71275-TC; 80053; 80061; 81003; 81015; 82550; 83036; 83721; 83735; 83880; 84443; 84484; 85025; 85379; 85610; 85730; 87040; 87081; 93005; 93306-TC; 93970-TC; 93971-TC; 99285-25; G0480; J1644; Q9967; U0003

== ENCOUNTER 2021-05-02 10:32 | Inpatient (IN) | payer BC ==
[2021-05-02 10:42] VITALS: BMI 34.9
[2021-05-02] MEDS ORDERED: VANCOMYCIN 1 GM in D5W (PRE-DOCKED) 1,000 MG/250 ML IVPB ONE (11:57)
[2021-05-02] MEDS ORDERED: ACETAMINOPHEN 500 MG TABLET (FP) PO ONE (11:57)
[2021-05-02] MEDS ORDERED: CEFTRIAXONE 1 GM in DEXTROSE 5%-WATER - 100 ML IVPB ONE (11:57)
[2021-05-02] MEDS ORDERED: ACETAMINOPHEN 325 MG TABLET (FP) ONE (12:32)
[2021-05-02] MEDS ORDERED: VANCOMYCIN 1 GRAM (PRE-DOCKED) 1,000 MG/250 ML BAG IVPB ONE (12:33)
[2021-05-02] MEDS ORDERED: CEFTRIAXONE 1 GM/50 ML BAG ONE (12:34)
[2021-05-02 13:07] LABS: BASO % 0.2 % (0-2.0); EOS % 0.6 % (0-4.5); HEMATOCRIT 41.7 % (35.4-49); HEMOGLOBIN 14.2 GM/dL (11.7-16.9); LYMPH % 7.7 % (8-40); MCH 31.3 pg (25.7-33.7); MCHC 34.1 g/dl (32.0-35.9); MEAN CELL VOLUME 91.7 fl (80-96); MONO % 5.8 % (3.8-10.2); NEUT % 85.7 % (42.8-82.8); PLATELET COUNT 141 10^3/uL (134-434); RBC 4.55 M/mm3 (4.00-5.60); RDW 15.3 % (11.9-15.9); WHITE BLOOD COUNT 13.2 K/mm3 (4.0-10.0)
[2021-05-02 13:15] LABS: INR 1.04 (0.83-1.09)
[2021-05-02 13:17] LABS: ACTIVATED PTT 30.5 SECONDS (25.2-36.5)
[2021-05-02 13:26] LABS: CHLORIDE 97 mmol/L (98-107); SODIUM 134 mmol/L (136-145)
[2021-05-02 13:28] LABS: ALBUMIN 3.2 g/dl (3.4-5.0); ANION GAP 7 MMOL/L (8-16); BLOOD UREA NITROGEN 36.9 mg/dL (7-18); CALCIUM 8.7 mg/dL (8.5-10.1); CO2 30 mmol/L (21-32); GLUCOSE,RANDOM 94 mg/dL (74-106)
[2021-05-02 13:32] LABS: CREATININE 1.4 mg/dL (0.55-1.3); SGOT/AST 83 U/L (15-37); SGPT/ALT 37 U/L (13-61)
[2021-05-02 13:33] LABS: BILIRUBIN,TOTAL 1.1 mg/dL (0.2-1); TOT PROT 7.3 g/dl (6.4-8.2)
[2021-05-02 13:35] LABS: ALK PHOS 89 U/L (45-117)
[2021-05-02 13:37] LABS: N-TERMINAL BNP 2097.6 pg/ml (5-450)
[2021-05-02 14:35] LABS: BLOOD UREA NITROGEN 37.5 mg/dL (7-18); CALCIUM 8.7 mg/dL (8.5-10.1)
[2021-05-02 14:39] LABS: CREATININE 1.3 mg/dL (0.55-1.3)
[2021-05-02] MEDS: HEPARIN NA (PORCINE) 5,000 UNITS/ML 1ML VIAL SQ SCH ×2 (20:07→20:10)
[2021-05-02] MEDS ORDERED: VANCOMYCIN/WATER 1,250 MG/250 ML BAG IVPB SCH (22:00)
[2021-05-02] MEDS: TAMSULOSIN HCL 0.4 MG CAP PO SCH (22:17)
[2021-05-02] MEDS: ATORVASTATIN CA 10 MG TABLET (FP) PO SCH (22:17)
[2021-05-02] MEDS: VANCOMYCIN/WATER 1,250 MG/250 ML BAG IVPB SCH (22:32)
[2021-05-03] MEDS: HEPARIN NA (PORCINE) 5,000 UNITS/ML 1ML VIAL SQ SCH ×3 (01:24→18:16)
[2021-05-03 08:38] LABS: BASO % 0.4 % (0-2.0); EOS % 2.7 % (0-4.5); HEMOGLOBIN 12.8 GM/dL (11.7-16.9); LYMPH % 11.4 % (8-40); MCHC 33.8 g/dl (32.0-35.9); MEAN CELL VOLUME 91.9 fl (80-96); MEAN PLT VOLUME 9.7 fl (7.5-11.1); MONO % 7.7 % (3.8-10.2); NEUT % 77.8 % (42.8-82.8); PLATELET COUNT 137 10^3/uL (134-434); RBC 4.14 M/mm3 (4.00-5.60); RDW 14.7 % (11.9-15.9); WHITE BLOOD COUNT 9.4 K/mm3 (4.0-10.0)
[2021-05-03 09:00] LABS: BLOOD UREA NITROGEN 28.5 mg/dL (7-18); CALCIUM 8.6 mg/dL (8.5-10.1)
[2021-05-03 09:02] LABS: MAGNESIUM 2.1 mg/dL (1.8-2.4)
[2021-05-03 09:03] LABS: PHOSPHOROUS 3.1 mg/dL (2.5-4.9)
[2021-05-03] MEDS: ASPIRIN COATED 81 MG TABLET.EC PO SCH (10:43)
[2021-05-03] MEDS: amLODIPine BESYLATE 5 MG TABLET (FP) PO SCH (10:43)
[2021-05-03] MEDS: ISOSORBIDE MONONITRATE 30 MG TAB.SR.24H (FP) PO SCH (10:43)
[2021-05-03] MEDS: FUROSEMIDE 40 MG TABLET (FP) PO SCH (10:43)
[2021-05-03] MEDS: POTASSIUM CHLORIDE TABS 20 MEQ TABLET.ER (FP) PO SCH (10:43)
[2021-05-03] MEDS: VANCOMYCIN/WATER 1,250 MG/250 ML BAG IVPB SCH (12:17)
[2021-05-03] MEDS: TIMOLOL 0.5% OPHTHALMIC SOL 5 ML BOTTLE OU SCH (12:18)
[2021-05-03] MEDS ORDERED: PIPERACILLIN/TAZOB 3.375 GM 3.375 GM in DEXTROSE 5%-WATER - 50 ML IVPB SCH ×2 (13:00→18:00)
[2021-05-03] MEDS ORDERED: DEXTROSE 5%-WATER 100 ML IVPB ONE (14:32)
[2021-05-03] MEDS: CEFTRIAXONE 2 GM in DEXTROSE 5%-WATER 100 ML IVPB SCH (14:56)
[2021-05-03] MEDS: UMECLIDINIUM/VILANTEROL (ANORO) 62.5/25 MCG INHALER IH SCH (15:10)
[2021-05-03] MEDS: ATORVASTATIN CA 10 MG TABLET (FP) PO SCH (22:56)
[2021-05-03] MEDS: TAMSULOSIN HCL 0.4 MG CAP PO SCH (22:56)
[2021-05-03] MEDS: VANCOMYCIN 1,000 MG in DEXTROSE 5%-WATER - 250 ML IVPB SCH (23:23)
[2021-05-04] MEDS ORDERED: VANCOMYCIN 1,000 MG in DEXTROSE 5%-WATER - 250 ML IVPB SCH
[2021-05-04] MEDS: HEPARIN NA (PORCINE) 5,000 UNITS/ML 1ML VIAL SQ SCH ×3 (02:55→17:53)
[2021-05-04] MEDS ORDERED: DEXTROSE 5%-WATER 100 ML IVPB ONE (08:49)
[2021-05-04] MEDS: ASPIRIN COATED 81 MG TABLET.EC PO SCH (09:40)
[2021-05-04] MEDS: UMECLIDINIUM/VILANTEROL (ANORO) 62.5/25 MCG INHALER IH SCH (09:40)
[2021-05-04] MEDS: ISOSORBIDE MONONITRATE 30 MG TAB.SR.24H (FP) PO SCH (09:40)
[2021-05-04] MEDS: POTASSIUM CHLORIDE TABS 20 MEQ TABLET.ER (FP) PO SCH (09:41)
[2021-05-04] MEDS: amLODIPine BESYLATE 5 MG TABLET (FP) PO SCH (09:41)
[2021-05-04] MEDS: FUROSEMIDE 40 MG TABLET (FP) PO SCH (09:41)
[2021-05-04] MEDS: CEFTRIAXONE 2 GM in DEXTROSE 5%-WATER 100 ML IVPB SCH (09:42)
[2021-05-04] MEDS: TIMOLOL 0.5% OPHTHALMIC SOL 5 ML BOTTLE OU SCH (09:42)
[2021-05-04 12:56] LABS: BLOOD UREA NITROGEN 21.1 mg/dL (7-18)
[2021-05-04 13:01] LABS: CREATININE 0.9 mg/dL (0.55-1.3)
[2021-05-04] MEDS: VANCOMYCIN 1,000 MG in DEXTROSE 5%-WATER - 250 ML IVPB SCH (13:52)
[2021-05-04] MEDS: POLYETHYLENE GLYCOL (HEALTHYLAX) 3350 17 GM PACKET PO SCH ×3 (15:01→21:36)
[2021-05-04] MEDS: DOCUSATE SODIUM 100 MG CAPSULE (FP) PO SCH ×2 (15:01→21:44)
[2021-05-04] MEDS: CEFAZOLIN 2 GM in SODIUM CHLORIDE 100 ML IVPB SCH (17:53)
[2021-05-04] MEDS: ATORVASTATIN CA 10 MG TABLET (FP) PO SCH (21:36)
[2021-05-04] MEDS: TAMSULOSIN HCL 0.4 MG CAP PO SCH (21:36)
[2021-05-05] MEDS: HEPARIN NA (PORCINE) 5,000 UNITS/ML 1ML VIAL SQ SCH ×3 (01:14→18:26)
[2021-05-05] MEDS: CEFAZOLIN 2 GM in SODIUM CHLORIDE 100 ML IVPB SCH ×3 (01:14→20:10)
[2021-05-05 09:32] LABS: BASO % 0.6 % (0-2.0); EOS % 4.9 % (0-4.5); HEMATOCRIT 38.3 % (35.4-49); HEMOGLOBIN 12.8 GM/dL (11.7-16.9); LYMPH % 22.6 % (8-40); MCH 30.6 pg (25.7-33.7); MCHC 33.5 g/dl (32.0-35.9); MEAN CELL VOLUME 91.4 fl (80-96); MEAN PLT VOLUME 9.8 fl (7.5-11.1); MONO % 12.1 % (3.8-10.2); NEUT % 59.8 % (42.8-82.8); PLATELET COUNT 169 10^3/uL (134-434); RBC 4.19 M/mm3 (4.00-5.60); RDW 14.8 % (11.9-15.9); WHITE BLOOD COUNT 6.5 K/mm3 (4.0-10.0)
[2021-05-05 09:44] LABS: BLOOD UREA NITROGEN 18.9 mg/dL (7-18); CALCIUM 8.7 mg/dL (8.5-10.1)
[2021-05-05 09:46] LABS: CREATININE 0.9 mg/dL (0.55-1.3)
[2021-05-05] MEDS: ASPIRIN COATED 81 MG TABLET.EC PO SCH (11:07)
[2021-05-05] MEDS: DOCUSATE SODIUM 100 MG CAPSULE (FP) PO SCH ×2 (11:07→21:03)
[2021-05-05] MEDS: POTASSIUM CHLORIDE TABS 20 MEQ TABLET.ER (FP) PO SCH (11:07)
[2021-05-05] MEDS: FUROSEMIDE 40 MG TABLET (FP) PO SCH (11:07)
[2021-05-05] MEDS: ISOSORBIDE MONONITRATE 30 MG TAB.SR.24H (FP) PO SCH (11:07)
[2021-05-05] MEDS: amLODIPine BESYLATE 5 MG TABLET (FP) PO SCH (11:07)
[2021-05-05] MEDS: POLYETHYLENE GLYCOL (HEALTHYLAX) 3350 17 GM PACKET PO SCH ×3 (11:08→21:03)
[2021-05-05] MEDS: TIMOLOL 0.5% OPHTHALMIC SOL 5 ML BOTTLE OU SCH (11:08)
[2021-05-05] MEDS: UMECLIDINIUM/VILANTEROL (ANORO) 62.5/25 MCG INHALER IH SCH (11:08)
[2021-05-05] MEDS: TAMSULOSIN HCL 0.4 MG CAP PO SCH (21:03)
[2021-05-05] MEDS: ATORVASTATIN CA 10 MG TABLET (FP) PO SCH (21:03)
[2021-05-06] MEDS: CEFAZOLIN 2 GM in SODIUM CHLORIDE 100 ML IVPB SCH ×2 (02:43→11:19)
[2021-05-06] MEDS: HEPARIN NA (PORCINE) 5,000 UNITS/ML 1ML VIAL SQ SCH ×2 (02:43→11:21)
[2021-05-06 09:54] LABS: BASO % 0.8 % (0-2.0); EOS % 4.2 % (0-4.5); HEMATOCRIT 37.6 % (35.4-49); HEMOGLOBIN 12.4 GM/dL (11.7-16.9); LYMPH % 26.2 % (8-40); MCH 30.3 pg (25.7-33.7); MCHC 32.9 g/dl (32.0-35.9); MEAN PLT VOLUME 10.1 fl (7.5-11.1); MONO % 10.7 % (3.8-10.2); NEUT % 58.1 % (42.8-82.8); PLATELET COUNT 179 10^3/uL (134-434); RBC 4.09 M/mm3 (4.00-5.60); RDW 14.7 % (11.9-15.9); WHITE BLOOD COUNT 6.6 K/mm3 (4.0-10.0)
[2021-05-06 10:15] LABS: CALCIUM 8.5 mg/dL (8.5-10.1)
[2021-05-06 10:16] LABS: BLOOD UREA NITROGEN 18.2 mg/dL (7-18)
[2021-05-06 10:19] LABS: CREATININE 0.9 mg/dL (0.55-1.3); PHOSPHOROUS 3.3 mg/dL (2.5-4.9)
[2021-05-06] MEDS: UMECLIDINIUM/VILANTEROL (ANORO) 62.5/25 MCG INHALER IH SCH (11:20)
[2021-05-06] MEDS: DOCUSATE SODIUM 100 MG CAPSULE (FP) PO SCH (11:21)
[2021-05-06] MEDS: ASPIRIN COATED 81 MG TABLET.EC PO SCH (11:21)
[2021-05-06] MEDS: POLYETHYLENE GLYCOL (HEALTHYLAX) 3350 17 GM PACKET PO SCH (11:21)
[2021-05-06] MEDS: ISOSORBIDE MONONITRATE 30 MG TAB.SR.24H (FP) PO SCH (11:22)
[2021-05-06] MEDS: POTASSIUM CHLORIDE TABS 20 MEQ TABLET.ER (FP) PO SCH (11:22)
[2021-05-06] MEDS: FUROSEMIDE 40 MG TABLET (FP) PO SCH (11:22)
[2021-05-06] MEDS: amLODIPine BESYLATE 5 MG TABLET (FP) PO SCH (11:23)
[2021-05-06] MEDS: TIMOLOL 0.5% OPHTHALMIC SOL 5 ML BOTTLE OU SCH (11:23)
[2021-05-06 14:28] VITALS: BP 142/72; PULSE 86; TEMP 97.7
== END 2021-05-06 16:20 | disposition home or self-care (01) | DRG 603 ==
LOC: SUPCPDRO 10:32 → JER 10:32 → JERBED 13:44 → J7W 17:49
PROVIDERS: ADMIT Internal Medicine; ATTEND Internal Medicine
DX: L03.116 Cellulitis of left lower limb (principal); I50.32 Chronic diastolic (congestive) heart failure; N17.9 Acute kidney failure, unspecified; I11.0 Hypertensive heart disease with heart failure; E78.5 Hyperlipidemia, unspecified; N40.0 Benign prostatic hyperplasia without lower urinary tract symptoms; R59.9 Enlarged lymph nodes, unspecified; Z85.46 Personal history of malignant neoplasm of prostate; Z96.653 Presence of artificial knee joint, bilateral; Z95.2 Presence of prosthetic heart valve
CPT/HCPCS: 36415; 71045-TC-FY; 73700-TC-RT; 80048; 80053; 82550; 82553; 83735; 83880; 84100; 84484; 85025; 85610; 85730; 87040; 87081; 93005; 93010; 93971-TC; 94010; 97116-GP; 97161-GP; 99285-25; C9803; G0480; J1644; U0003; U0005

== ENCOUNTER 2021-06-20 10:46 | Inpatient (IN) | payer BC ==
[2021-06-20 10:56] VITALS: BMI 38.2
[2021-06-20] MEDS ORDERED: FUROSEMIDE 40 MG/4 ML INJECTABLE VIAL IVPUSH ONE (11:18)
[2021-06-20 12:48] LABS: BASO % 0.6 % (0-2.0); EOS % 1.6 % (0-4.5); HEMATOCRIT 38.6 % (35.4-49); LYMPH % 14.3 % (8-40); MCH 30.9 pg (25.7-33.7); MCHC 33.8 g/dl (32.0-35.9); MEAN CELL VOLUME 91.4 fl (80-96); MEAN PLT VOLUME 9.6 fl (7.5-11.1); MONO % 8.6 % (3.8-10.2); NEUT % 74.9 % (42.8-82.8); PLATELET COUNT 168 10^3/uL (134-434); RBC 4.22 M/mm3 (4.00-5.60); RDW 15.3 % (11.9-15.9); WHITE BLOOD COUNT 8.9 K/mm3 (4.0-10.0)
[2021-06-20] MEDS ORDERED: FUROSEMIDE 40 MG/4 ML INJECTABLE VIAL ONE (12:55)
[2021-06-20 13:04] LABS: ACTIVATED PTT 28.9 SECONDS (25.2-36.5); INR 1.16 (0.83-1.09); PROTHROMBIN TIME (PATIENT) 13.4 SEC (9.7-13.0)
[2021-06-20 13:11] LABS: CALCIUM 9.1 mg/dL (8.5-10.1)
[2021-06-20 13:12] LABS: ALBUMIN 3.4 g/dl (3.4-5.0); BLOOD UREA NITROGEN 41.6 mg/dL (7-18); MAGNESIUM 1.9 mg/dL (1.8-2.4)
[2021-06-20 13:15] LABS: CREATININE 1.2 mg/dL (0.55-1.3)
[2021-06-20 13:17] LABS: BILIRUBIN,TOTAL 1.3 mg/dL (0.2-1); TOT PROT 6.8 g/dl (6.4-8.2)
[2021-06-20 13:20] LABS: N-TERMINAL BNP 3104.9 pg/ml (5-450)
[2021-06-20] MEDS: APIXABAN 5 MG TABLET PO SCH ×2 (13:45→22:40)
[2021-06-20] MEDS ORDERED: APIXABAN 5 MG TABLET ONE ×2 (13:48→22:20)
[2021-06-20] MEDS ORDERED: metoPROLOL SUCCINATE 25 MG TAB.SR.24H (FP) PO SCH (22:00)
[2021-06-20] MEDS ORDERED: ATORVASTATIN CA 40 MG TABLET (FP) ONE (22:20)
[2021-06-20] MEDS ORDERED: metoPROLOL SUCCINATE 25 MG TAB.SR.24H (FP) ONE (22:20)
[2021-06-20] MEDS: ATORVASTATIN CA 40 MG TABLET (FP) PO SCH (22:31)
[2021-06-21 07:17] LABS: CALCIUM 8.9 mg/dL (8.5-10.1)
[2021-06-21 07:18] LABS: ALBUMIN 3.1 g/dl (3.4-5.0); BLOOD UREA NITROGEN 34.7 mg/dL (7-18)
[2021-06-21 07:22] LABS: HEMATOCRIT 39.2 % (35.4-49); HEMOGLOBIN 13.4 GM/dL (11.7-16.9); MCH 31.4 pg (25.7-33.7); MCHC 34.3 g/dl (32.0-35.9); MEAN CELL VOLUME 91.7 fl (80-96); MEAN PLT VOLUME 10.1 fl (7.5-11.1); PLATELET COUNT 151 10^3/uL (134-434); RBC 4.27 M/mm3 (4.00-5.60); RDW 15.1 % (11.9-15.9); TOT PROT 6.7 g/dl (6.4-8.2)
[2021-06-21 07:23] LABS: BILIRUBIN,TOTAL 1.1 mg/dL (0.2-1)
[2021-06-21 07:24] LABS: WHITE BLOOD COUNT 9.6 K/mm3 (4.0-10.0)
[2021-06-21] MEDS: TAMSULOSIN HCL 0.4 MG CAP PO SCH (08:42)
[2021-06-21] MEDS ORDERED: metoPROLOL SUCCINATE 25 MG TAB.SR.24H (FP) PO ONE (09:45)
[2021-06-21] MEDS: POTASSIUM CHLORIDE TABS 20 MEQ TABLET.ER (FP) PO SCH (09:53)
[2021-06-21] MEDS: ISOSORBIDE MONONITRATE 30 MG TAB.SR.24H (FP) PO SCH (09:54)
[2021-06-21] MEDS: APIXABAN 5 MG TABLET PO SCH ×2 (09:54→21:36)
[2021-06-21] MEDS: FUROSEMIDE 40 MG/4 ML INJECTABLE VIAL IVPUSH SCH (09:54)
[2021-06-21 10:07] LABS: SARS-CoV-2 NAA Not Detected (Not Detected)
[2021-06-21] MEDS ORDERED: POTASSIUM CHLORIDE TABS 20 MEQ TABLET.ER (FP) PO ONE (18:00)
[2021-06-21] MEDS: ATORVASTATIN CA 40 MG TABLET (FP) PO SCH (21:37)
[2021-06-22 07:14] LABS: HEMATOCRIT 37.7 % (35.4-49); MCH 31.5 pg (25.7-33.7); MCHC 34.5 g/dl (32.0-35.9); MEAN CELL VOLUME 91.1 fl (80-96); MEAN PLT VOLUME 9.2 fl (7.5-11.1); PLATELET COUNT 163 10^3/uL (134-434); RBC 4.13 M/mm3 (4.00-5.60); RDW 15.4 % (11.9-15.9); WHITE BLOOD COUNT 7.7 K/mm3 (4.0-10.0)
[2021-06-22 07:38] LABS: CALCIUM 9.2 mg/dL (8.5-10.1)
[2021-06-22 07:39] LABS: BLOOD UREA NITROGEN 31.7 mg/dL (7-18); MAGNESIUM 2.1 mg/dL (1.8-2.4)
[2021-06-22] MEDS: APIXABAN 5 MG TABLET PO SCH ×2 (09:17→21:25)
[2021-06-22] MEDS: TAMSULOSIN HCL 0.4 MG CAP PO SCH (09:17)
[2021-06-22] MEDS: POTASSIUM CHLORIDE TABS 20 MEQ TABLET.ER (FP) PO SCH (09:17)
[2021-06-22] MEDS: FUROSEMIDE 40 MG/4 ML INJECTABLE VIAL IVPUSH SCH ×2 (09:18→14:12)
[2021-06-22] MEDS: ISOSORBIDE MONONITRATE 30 MG TAB.SR.24H (FP) PO SCH (09:18)
[2021-06-22] MEDS ORDERED: metoPROLOL SUCCINATE 25 MG TAB.SR.24H (FP) PO ONE (11:23)
[2021-06-22] MEDS: metoPROLOL SUCCINATE 25 MG TAB.SR.24H (FP) PO SCH (21:25)
[2021-06-22] MEDS: ATORVASTATIN CA 40 MG TABLET (FP) PO SCH (21:25)
[2021-06-23] MEDS: FUROSEMIDE 40 MG/4 ML INJECTABLE VIAL IVPUSH SCH ×2 (05:29→13:35)
[2021-06-23 07:06] LABS: HEMATOCRIT 37.6 % (35.4-49); HEMOGLOBIN 12.6 GM/dL (11.7-16.9); MCH 30.7 pg (25.7-33.7); MCHC 33.4 g/dl (32.0-35.9); MEAN CELL VOLUME 91.9 fl (80-96); MEAN PLT VOLUME 9.1 fl (7.5-11.1); PLATELET COUNT 176 10^3/uL (134-434); RDW 15.1 % (11.9-15.9); WHITE BLOOD COUNT 7.8 K/mm3 (4.0-10.0)
[2021-06-23 07:36] LABS: CALCIUM 8.8 mg/dL (8.5-10.1)
[2021-06-23 07:37] LABS: BLOOD UREA NITROGEN 27.9 mg/dL (7-18); MAGNESIUM 1.9 mg/dL (1.8-2.4)
[2021-06-23] MEDS: TAMSULOSIN HCL 0.4 MG CAP PO SCH (09:25)
[2021-06-23] MEDS: ISOSORBIDE MONONITRATE 30 MG TAB.SR.24H (FP) PO SCH (09:53)
[2021-06-23] MEDS: POTASSIUM CHLORIDE TABS 20 MEQ TABLET.ER (FP) PO SCH (09:53)
[2021-06-23] MEDS: APIXABAN 5 MG TABLET PO SCH ×2 (09:53→21:19)
[2021-06-23] MEDS: metoPROLOL SUCCINATE 25 MG TAB.SR.24H (FP) PO SCH ×2 (09:53→21:19)
[2021-06-23] MEDS: ATORVASTATIN CA 40 MG TABLET (FP) PO SCH (21:19)
[2021-06-24] MEDS: FUROSEMIDE 40 MG/4 ML INJECTABLE VIAL IVPUSH SCH ×2 (06:35→13:18)
[2021-06-24 07:24] LABS: MAGNESIUM 1.9 mg/dL (1.8-2.4)
[2021-06-24 07:26] LABS: CALCIUM 8.8 mg/dL (8.5-10.1)
[2021-06-24 07:28] LABS: HEMATOCRIT 36.7 % (35.4-49); HEMOGLOBIN 12.4 GM/dL (11.7-16.9); MCH 31.1 pg (25.7-33.7); MCHC 33.8 g/dl (32.0-35.9); MEAN CELL VOLUME 91.8 fl (80-96); MEAN PLT VOLUME 9.7 fl (7.5-11.1); PLATELET COUNT 171 10^3/uL (134-434); RDW 15.2 % (11.9-15.9); WHITE BLOOD COUNT 7.6 K/mm3 (4.0-10.0)
[2021-06-24] MEDS: ISOSORBIDE MONONITRATE 30 MG TAB.SR.24H (FP) PO SCH (09:11)
[2021-06-24] MEDS: metoPROLOL SUCCINATE 25 MG TAB.SR.24H (FP) PO SCH (09:11)
[2021-06-24] MEDS: POTASSIUM CHLORIDE TABS 20 MEQ TABLET.ER (FP) PO SCH (09:11)
[2021-06-24] MEDS: TAMSULOSIN HCL 0.4 MG CAP PO SCH (09:11)
[2021-06-24] MEDS: APIXABAN 5 MG TABLET PO SCH (09:12)
[2021-06-24 16:29] VITALS: BP 122/89; PULSE 100; TEMP 98.2
== END 2021-06-24 17:00 | disposition home or self-care (01) | DRG 291 ==
LOC: JER 10:46 → JERBED 14:40 → J2W 23:32
PROVIDERS: ADMIT Internal Medicine; ATTEND Internal Medicine
DX: I11.0 Hypertensive heart disease with heart failure (principal); I50.33 Acute on chronic diastolic (congestive) heart failure; I48.91 Unspecified atrial fibrillation; E78.5 Hyperlipidemia, unspecified; N40.0 Benign prostatic hyperplasia without lower urinary tract symptoms; E87.6 Hypokalemia; E66.9 Obesity, unspecified; Z68.38 Body mass index [BMI] 38.0-38.9, adult; E87.70 Fluid overload, unspecified; Z85.46 Personal history of malignant neoplasm of prostate; Z95.1 Presence of aortocoronary bypass graft; Z96.653 Presence of artificial knee joint, bilateral
CPT/HCPCS: 36415; 71045-TC-FY; 80048; 80053; 82962; 83735; 83880; 84439; 84443; 84481; 84484; 85025; 85027; 85610; 85730; 93005; 93010; 93306-TC; 97116-GP; 97161-GP; 99285-25; C9803-CS; U0003; U0005

== ENCOUNTER 2021-12-22 13:41 | Inpatient (IN) | payer BC ==
[2021-12-22 16:07] LABS: BASO % 0.7 % (0-2.0); EOS % 2.6 % (0-4.5); HEMATOCRIT 37.6 % (35.4-49); HEMOGLOBIN 12.2 GM/dL (11.7-16.9); LYMPH % 19.4 % (8-40); MCH 29.3 pg (25.7-33.7); MCHC 32.3 g/dl (32.0-35.9); MEAN CELL VOLUME 90.8 fl (80-96); MEAN PLT VOLUME 10.4 fl (7.5-11.1); MONO % 10.5 % (3.8-10.2); NEUT % 66.8 % (42.8-82.8); PLATELET COUNT 193 10^3/uL (134-434); RBC 4.15 M/mm3 (4.00-5.60); RDW 16.6 % (11.9-15.9); WHITE BLOOD COUNT 7.5 K/mm3 (4.0-10.0)
[2021-12-22 16:15] LABS: VENOUS BASE EXCESS 5.1 mmol/L (-2-2); VENOUS O2 SATURATION 90.7 % (70-80); VENOUS PH 7.402 (7.310-7.410)
[2021-12-22 16:30] LABS: INR 1.72 (0.83-1.09); PROTHROMBIN TIME (PATIENT) 19.9 SEC (9.7-13.0)
[2021-12-22 16:33] LABS: ACTIVATED PTT 35.7 SECONDS (25.2-36.5)
[2021-12-22 16:34] LABS: CALCIUM 9.3 mg/dL (8.5-10.1)
[2021-12-22 16:35] LABS: ALBUMIN 3.5 g/dl (3.4-5.0); BLOOD UREA NITROGEN 30.3 mg/dL (7-18)
[2021-12-22 16:38] LABS: CREATININE 1.3 mg/dL (0.55-1.3)
[2021-12-22 16:39] LABS: BILIRUBIN,TOTAL 0.8 mg/dL (0.2-1)
[2021-12-22 16:40] LABS: TOT PROT 6.6 g/dl (6.4-8.2)
[2021-12-22 16:43] LABS: N-TERMINAL BNP 4455.4 pg/ml (5-450)
[2021-12-22] MEDS ORDERED: FUROSEMIDE 40 MG/4 ML INJECTABLE VIAL IVPUSH ONE (17:10)
[2021-12-22] MEDS ORDERED: FUROSEMIDE 40 MG/4 ML INJECTABLE VIAL ONE (18:02)
[2021-12-22] MEDS: ATORVASTATIN CA 40 MG TABLET (FP) PO SCH (22:41)
[2021-12-23 00:22] VITALS: BMI 36.1
[2021-12-23 07:27] LABS: BASO % 0.7 % (0-2.0); EOS % 2.1 % (0-4.5); HEMATOCRIT 34.6 % (35.4-49); HEMOGLOBIN 11.8 GM/dL (11.7-16.9); LYMPH % 12.5 % (8-40); MCH 30.3 pg (25.7-33.7); MCHC 34.1 g/dl (32.0-35.9); MEAN PLT VOLUME 9.4 fl (7.5-11.1); MONO % 9.2 % (3.8-10.2); NEUT % 75.5 % (42.8-82.8); PLATELET COUNT 154 10^3/uL (134-434); RBC 3.89 M/mm3 (4.00-5.60); RDW 15.7 % (11.9-15.9); WHITE BLOOD COUNT 8.2 K/mm3 (4.0-10.0)
[2021-12-23 07:47] LABS: CALCIUM 8.6 mg/dL (8.5-10.1)
[2021-12-23 07:48] LABS: ALBUMIN 3.3 g/dl (3.4-5.0); BLOOD UREA NITROGEN 25.2 mg/dL (7-18)
[2021-12-23 07:51] LABS: CREATININE 1.1 mg/dL (0.55-1.3)
[2021-12-23 07:52] LABS: TOT PROT 5.9 g/dl (6.4-8.2)
[2021-12-23 08:20] LABS: BILIRUBIN,TOTAL 1.2 mg/dL (0.2-1)
[2021-12-23] MEDS: TAMSULOSIN HCL 0.4 MG CAP PO SCH (09:32)
[2021-12-23] MEDS: ISOSORBIDE MONONITRATE 30 MG TAB.SR.24H (FP) PO SCH (09:33)
[2021-12-23] MEDS ORDERED: FUROSEMIDE 40 MG/4 ML INJECTABLE VIAL IVPUSH SCH (10:00)
[2021-12-23] MEDS ORDERED: PNEUMOC 20-VAL CONJ-DIP CRM/PF 0.5 ML SYRINGE IM ONE (12:00)
[2021-12-23] MEDS: FUROSEMIDE 40 MG/4 ML INJECTABLE VIAL IVPUSH SCH (14:05)
[2021-12-23] MEDS: RIVAROXABAN 20 MG TABLET PO SCH (17:27)
[2021-12-23] MEDS: ATORVASTATIN CA 40 MG TABLET (FP) PO SCH (20:59)
[2021-12-23] MEDS ORDERED: APIXABAN 5 MG TABLET PO SCH (22:00)
[2021-12-24] MEDS: FUROSEMIDE 40 MG/4 ML INJECTABLE VIAL IVPUSH SCH ×2 (05:45→13:55)
[2021-12-24 06:51] LABS: BASO % 0.5 % (0-2.0); EOS % 2.5 % (0-4.5); HEMATOCRIT 33.6 % (35.4-49); HEMOGLOBIN 11.2 GM/dL (11.7-16.9); LYMPH % 15.7 % (8-40); MCH 29.6 pg (25.7-33.7); MCHC 33.4 g/dl (32.0-35.9); MEAN CELL VOLUME 88.7 fl (80-96); MEAN PLT VOLUME 9.9 fl (7.5-11.1); MONO % 10.4 % (3.8-10.2); NEUT % 70.9 % (42.8-82.8); PLATELET COUNT 172 10^3/uL (134-434); RBC 3.79 M/mm3 (4.00-5.60); RDW 16.2 % (11.9-15.9); WHITE BLOOD COUNT 8.8 K/mm3 (4.0-10.0)
[2021-12-24 07:09] LABS: ALBUMIN 2.9 g/dl (3.4-5.0); BLOOD UREA NITROGEN 31.5 mg/dL (7-18); CALCIUM 8.4 mg/dL (8.5-10.1); MAGNESIUM 2.1 mg/dL (1.8-2.4)
[2021-12-24 07:12] LABS: CREATININE 1.3 mg/dL (0.55-1.3)
[2021-12-24 07:14] LABS: BILIRUBIN,TOTAL 0.9 mg/dL (0.2-1); TOT PROT 5.5 g/dl (6.4-8.2)
[2021-12-24] MEDS: TAMSULOSIN HCL 0.4 MG CAP PO SCH (08:28)
[2021-12-24] MEDS ORDERED: POTASSIUM CHLORIDE TABS 20 MEQ TABLET.ER (FP) PO ONE (08:35)
[2021-12-24] MEDS: ISOSORBIDE MONONITRATE 30 MG TAB.SR.24H (FP) PO SCH (10:06)
[2021-12-24] MEDS: NYSTATIN 100,000 UNIT/GM TOPICAL CREAM 15 GM TUBE TP SCH ×2 (15:36→21:40)
[2021-12-24] MEDS: RIVAROXABAN 20 MG TABLET PO SCH (18:19)
[2021-12-24] MEDS: ATORVASTATIN CA 40 MG TABLET (FP) PO SCH (21:40)
[2021-12-25] MEDS: FUROSEMIDE 40 MG/4 ML INJECTABLE VIAL IVPUSH SCH (06:19)
[2021-12-25 07:33] LABS: BASO % 0.8 % (0-2.0); EOS % 2.4 % (0-4.5); HEMATOCRIT 34.4 % (35.4-49); HEMOGLOBIN 11.3 GM/dL (11.7-16.9); LYMPH % 18.6 % (8-40); MCH 29.3 pg (25.7-33.7); MCHC 32.8 g/dl (32.0-35.9); MEAN CELL VOLUME 89.2 fl (80-96); MONO % 10.8 % (3.8-10.2); NEUT % 67.4 % (42.8-82.8); PLATELET COUNT 161 10^3/uL (134-434); RBC 3.85 M/mm3 (4.00-5.60); WHITE BLOOD COUNT 7.7 K/mm3 (4.0-10.0)
[2021-12-25] MEDS: TAMSULOSIN HCL 0.4 MG CAP PO SCH (07:36)
[2021-12-25 08:08] LABS: ALBUMIN 3.1 g/dl (3.4-5.0); BLOOD UREA NITROGEN 32.5 mg/dL (7-18); CALCIUM 8.7 mg/dL (8.5-10.1)
[2021-12-25 08:12] LABS: CREATININE 1.4 mg/dL (0.55-1.3)
[2021-12-25 08:13] LABS: BILIRUBIN,TOTAL 0.8 mg/dL (0.2-1); TOT PROT 5.7 g/dl (6.4-8.2)
[2021-12-25] MEDS: ISOSORBIDE MONONITRATE 30 MG TAB.SR.24H (FP) PO SCH (09:55)
[2021-12-25] MEDS: NYSTATIN 100,000 UNIT/GM TOPICAL CREAM 15 GM TUBE TP SCH (09:56)
[2021-12-25 10:12] VITALS: RESP 20
[2021-12-25 12:01] VITALS: BP 91/58; PULSE 113; TEMP 98.5
[2021-12-25] MEDS ORDERED: FUROSEMIDE 20 MG TABLET (FP) PO SCH (14:00)
[2021-12-25] MEDS ORDERED: TORSEMIDE 20 MG TABLET (FP) PO SCH (14:00)
[2021-12-25] MEDS ORDERED: POTASSIUM CHLORIDE TABS 10 MEQ TABLET.ER (FP) PO SCH (22:00)
== END 2021-12-25 15:07 | disposition home or self-care (01) | DRG 291 ==
LOC: JER 13:41 → JERBED 17:16 → J4W 22:06
PROVIDERS: ADMIT Internal Medicine; ATTEND Nurse Practitioner Acute Care
DX: I11.0 Hypertensive heart disease with heart failure (principal); I50.43 Acute on chronic combined systolic (congestive) and diastolic (congestive) heart failure; R04.2 Hemoptysis; N40.0 Benign prostatic hyperplasia without lower urinary tract symptoms; E78.5 Hyperlipidemia, unspecified; I45.10 Unspecified right bundle-branch block; E66.9 Obesity, unspecified; Z68.36 Body mass index [BMI] 36.0-36.9, adult; Z95.2 Presence of prosthetic heart valve; I25.10 Atherosclerotic heart disease of native coronary artery without angina pectoris
CPT/HCPCS: 0241U-QW; 36415; 71045-TC-FY; 71250-TC; 80053; 80061; 82803; 83036; 83735; 83880; 84443; 84484; 85025; 85379; 85610; 85730; 86850; 86900; 86901; 93005; 93010; 93306-TC; 94761; 97116-GP; 97161-GP; 99285-25

== ENCOUNTER 2022-01-13 05:40 | Inpatient (IN) | payer BC ==
[2022-01-13] MEDS ORDERED: methylPREDNISolone NA SUCC 125 MG/2 ML VIAL IVPUSH ONE (06:32)
[2022-01-13] MEDS: ALBUTEROL SO4 2.5/IPRATROPIUM 0.5 INH SOL 3 ML VIAL.NEB. NEB SCH ×4 (06:39→08:06)
[2022-01-13] MEDS ORDERED: FUROSEMIDE 20 MG TABLET (FP) PO ONE (06:55)
[2022-01-13] MEDS ORDERED: FUROSEMIDE 40 MG/4 ML INJECTABLE VIAL IVPUSH ONE (07:08)
[2022-01-13 07:32] LABS: INR 2.63 (0.83-1.09); PROTHROMBIN TIME (PATIENT) 30.6 SEC (9.7-13.0)
[2022-01-13 07:34] LABS: BASO % 0.6 % (0-2.0); EOS % 3.3 % (0-4.5); HEMATOCRIT 39.1 % (35.4-49); HEMOGLOBIN 12.9 GM/dL (11.7-16.9); LYMPH % 11.8 % (8-40); MCH 29.7 pg (25.7-33.7); MCHC 33.1 g/dl (32.0-35.9); MEAN CELL VOLUME 89.6 fl (80-96); MONO % 8.7 % (3.8-10.2); NEUT % 75.6 % (42.8-82.8); PLATELET COUNT 141 10^3/uL (134-434); RBC 4.36 M/mm3 (4.00-5.60); RDW 16.8 % (11.9-15.9); WHITE BLOOD COUNT 8.1 K/mm3 (4.0-10.0)
[2022-01-13 07:35] LABS: ACTIVATED PTT 36.9 SECONDS (25.2-36.5); CALCIUM 8.9 mg/dL (8.5-10.1)
[2022-01-13 07:36] LABS: ALBUMIN 3.5 g/dl (3.4-5.0); BLOOD UREA NITROGEN 49.8 mg/dL (7-18); MAGNESIUM 2.3 mg/dL (1.8-2.4)
[2022-01-13] MEDS ORDERED: AZITHROMYCIN IVPB 500 MG in DEXTROSE 5%-WATER - 250 ML IVPB ONE (07:38)
[2022-01-13] MEDS ORDERED: CEFTRIAXONE 1,000 MG in DEXTROSE 5%-WATER - 50 ML IVPB ONE (07:38)
[2022-01-13 07:39] LABS: CREATININE 1.8 mg/dL (0.55-1.3)
[2022-01-13 07:40] LABS: BILIRUBIN,TOTAL 0.9 mg/dL (0.2-1); TOT PROT 6.6 g/dl (6.4-8.2)
[2022-01-13 07:44] LABS: N-TERMINAL BNP 5721.3 pg/ml (5-450)
[2022-01-13] MEDS ORDERED: methylPREDNISolone NA SUCC 125 MG/2 ML VIAL ONE (07:52)
[2022-01-13] MEDS ORDERED: FUROSEMIDE 40 MG/4 ML INJECTABLE VIAL ONE (07:52)
[2022-01-13] MEDS ORDERED: CEFTRIAXONE 1 GM/50 ML BAG ONE (08:22)
[2022-01-13] MEDS ORDERED: AZITHROMYCIN IVPB 500 MG/250 ML BAG IVPB ONE (08:23)
[2022-01-13 10:13] LABS: CALCIUM 9.3 mg/dL (8.5-10.1)
[2022-01-13 10:14] LABS: BLOOD UREA NITROGEN 47.4 mg/dL (7-18)
[2022-01-13 10:17] LABS: CREATININE 1.6 mg/dL (0.55-1.3)
[2022-01-13] MEDS ORDERED: FUROSEMIDE 40 MG/4 ML INJECTABLE VIAL IVPUSH SCH ×2 (14:00)
[2022-01-13] MEDS ORDERED: HEPARIN NA (PORCINE) 5,000 UNITS/ML 1ML VIAL SQ SCH (14:00)
[2022-01-13] MEDS: FUROSEMIDE 40 MG/4 ML INJECTABLE VIAL IVPUSH SCH (16:59)
[2022-01-13] MEDS ORDERED: RIVAROXABAN 20 MG TABLET PO SCH (18:00)
[2022-01-13 18:28] VITALS: BMI 36.8
[2022-01-13 20:23] LABS: PH,URINE 5.5 (5.0-8.0); URINE APPEARANCE CLEAR; URINE BILIRUBIN NEGATIVE (NEGATIVE); URINE COLOR YELLOW; URINE GLUCOSE (UA) NEGATIVE (NEGATIVE); URINE KETONE NEGATIVE (NEGATIVE); URINE LEUK ESTERASE NEGATIVE (NEGATIVE); URINE NITRITE NEGATIVE (NEGATIVE); URINE PROTEIN NEGATIVE (NEGATIVE); URINE UROBILINOGEN 0.2 mg/dL (0.2-1.0)
[2022-01-13] MEDS: TAMSULOSIN HCL 0.4 MG CAP PO SCH (21:22)
[2022-01-13] MEDS: ATORVASTATIN CA 40 MG TABLET (FP) PO SCH (21:22)
[2022-01-14] MEDS: FUROSEMIDE 40 MG/4 ML INJECTABLE VIAL IVPUSH SCH ×2 (05:50→15:29)
[2022-01-14 08:38] LABS: BASO % 0.1 % (0-2.0); HEMOGLOBIN 13.1 GM/dL (11.7-16.9); LYMPH % 9.5 % (8-40); MCH 30.4 pg (25.7-33.7); MCHC 33.7 g/dl (32.0-35.9); MEAN CELL VOLUME 90.1 fl (80-96); MEAN PLT VOLUME 10.2 fl (7.5-11.1); MONO % 3.8 % (3.8-10.2); NEUT % 86.6 % (42.8-82.8); PLATELET COUNT 142 10^3/uL (134-434); RBC 4.32 M/mm3 (4.00-5.60); RDW 17.3 % (11.9-15.9)
[2022-01-14 09:06] LABS: CALCIUM 9.2 mg/dL (8.5-10.1)
[2022-01-14 09:07] LABS: ALBUMIN 3.7 g/dl (3.4-5.0); BLOOD UREA NITROGEN 52.2 mg/dL (7-18); CREATININE 1.7 mg/dL (0.55-1.3); MAGNESIUM 2.5 mg/dL (1.8-2.4)
[2022-01-14 09:09] LABS: BILIRUBIN,TOTAL 0.9 mg/dL (0.2-1); TOT PROT 6.9 g/dl (6.4-8.2)
[2022-01-14 09:10] LABS: PHOSPHOROUS 5.4 mg/dL (2.5-4.9)
[2022-01-14] MEDS ORDERED: AMIODARONE HCL 200 MG TABLET PO SCH (10:00)
[2022-01-14] MEDS: RIVAROXABAN 15 MG TABLET PO SCH (18:53)
[2022-01-14] MEDS: TAMSULOSIN HCL 0.4 MG CAP PO SCH (21:44)
[2022-01-14] MEDS: ATORVASTATIN CA 40 MG TABLET (FP) PO SCH (21:44)
[2022-01-15] MEDS: FUROSEMIDE 40 MG/4 ML INJECTABLE VIAL IVPUSH SCH ×2 (06:02→13:28)
[2022-01-15 08:07] LABS: BASO % 0.1 % (0-2.0); EOS % 0.2 % (0-4.5); HEMATOCRIT 40.5 % (35.4-49); HEMOGLOBIN 13.1 GM/dL (11.7-16.9); LYMPH % 9.4 % (8-40); MCH 29.2 pg (25.7-33.7); MCHC 32.3 g/dl (32.0-35.9); MEAN CELL VOLUME 90.4 fl (80-96); MEAN PLT VOLUME 10.3 fl (7.5-11.1); MONO % 6.6 % (3.8-10.2); NEUT % 83.7 % (42.8-82.8); PLATELET COUNT 136 10^3/uL (134-434); RBC 4.48 M/mm3 (4.00-5.60); RDW 17.3 % (11.9-15.9); WHITE BLOOD COUNT 13.5 K/mm3 (4.0-10.0)
[2022-01-15 08:45] LABS: CALCIUM 9.2 mg/dL (8.5-10.1)
[2022-01-15 08:46] LABS: BLOOD UREA NITROGEN 56.6 mg/dL (7-18); MAGNESIUM 2.4 mg/dL (1.8-2.4)
[2022-01-15 08:49] LABS: CREATININE 1.8 mg/dL (0.55-1.3); PHOSPHOROUS 5.1 mg/dL (2.5-4.9)
[2022-01-15 13:08] LABS: PH,URINE 5.5 (5.0-8.0); URINE APPEARANCE CLEAR; URINE BILIRUBIN NEGATIVE (NEGATIVE); URINE COLOR YELLOW; URINE GLUCOSE (UA) NEGATIVE (NEGATIVE); URINE KETONE NEGATIVE (NEGATIVE); URINE LEUK ESTERASE NEGATIVE (NEGATIVE); URINE NITRITE NEGATIVE (NEGATIVE); URINE PROTEIN NEGATIVE (NEGATIVE); URINE UROBILINOGEN 0.2 mg/dL (0.2-1.0)
[2022-01-15] MEDS: RIVAROXABAN 15 MG TABLET PO SCH (18:37)
[2022-01-15] MEDS: TAMSULOSIN HCL 0.4 MG CAP PO SCH (22:18)
[2022-01-15] MEDS: ATORVASTATIN CA 40 MG TABLET (FP) PO SCH (22:18)
[2022-01-16] MEDS: FUROSEMIDE 40 MG/4 ML INJECTABLE VIAL IVPUSH SCH ×2 (05:40→14:00)
[2022-01-16 08:27] LABS: BASO % 0.3 % (0-2.0); HEMATOCRIT 39.4 % (35.4-49); LYMPH % 11.8 % (8-40); MCH 29.8 pg (25.7-33.7); MEAN CELL VOLUME 90.3 fl (80-96); MONO % 8.4 % (3.8-10.2); NEUT % 77.5 % (42.8-82.8); PLATELET COUNT 124 10^3/uL (134-434); RBC 4.36 M/mm3 (4.00-5.60); RDW 17.5 % (11.9-15.9); WHITE BLOOD COUNT 11.4 K/mm3 (4.0-10.0)
[2022-01-16 08:52] LABS: CALCIUM 9.3 mg/dL (8.5-10.1); CREATININE 1.6 mg/dL (0.55-1.3)
[2022-01-16] MEDS ORDERED: metoPROLOL SUCCINATE 25 MG TAB.SR.24H (FP) PO ONE (09:35)
[2022-01-16] MEDS ORDERED: METOLAZONE 2.5 MG TABLET (FP) PO ONE (13:00)
[2022-01-16] MEDS: RIVAROXABAN 15 MG TABLET PO SCH (17:25)
[2022-01-16] MEDS: ATORVASTATIN CA 40 MG TABLET (FP) PO SCH (22:26)
[2022-01-16] MEDS: TAMSULOSIN HCL 0.4 MG CAP PO SCH (22:26)
[2022-01-17] MEDS: FUROSEMIDE 40 MG/4 ML INJECTABLE VIAL IVPUSH SCH ×2 (06:58→14:25)
[2022-01-17 07:24] LABS: HEMATOCRIT 37.9 % (35.4-49); HEMOGLOBIN 12.6 GM/dL (11.7-16.9); MCH 29.9 pg (25.7-33.7); MCHC 33.1 g/dl (32.0-35.9); MEAN CELL VOLUME 90.4 fl (80-96); MEAN PLT VOLUME 9.3 fl (7.5-11.1); PLATELET COUNT 106 10^3/uL (134-434); RDW 17.4 % (11.9-15.9); WHITE BLOOD COUNT 9.7 K/mm3 (4.0-10.0)
[2022-01-17 07:53] LABS: CALCIUM 8.7 mg/dL (8.5-10.1)
[2022-01-17 07:54] LABS: BLOOD UREA NITROGEN 40.6 mg/dL (7-18); MAGNESIUM 2.2 mg/dL (1.8-2.4)
[2022-01-17 07:57] LABS: CREATININE 1.3 mg/dL (0.55-1.3); PHOSPHOROUS 4.1 mg/dL (2.5-4.9)
[2022-01-17] MEDS: RIVAROXABAN 15 MG TABLET PO SCH (17:06)
[2022-01-17] MEDS ORDERED: RIVAROXABAN 15 MG TABLET PO SCH (18:00)
[2022-01-17] MEDS: TAMSULOSIN HCL 0.4 MG CAP PO SCH (22:07)
[2022-01-17] MEDS: ATORVASTATIN CA 40 MG TABLET (FP) PO SCH (22:07)
[2022-01-18] MEDS: FUROSEMIDE 40 MG/4 ML INJECTABLE VIAL IVPUSH SCH ×2 (07:01→13:27)
[2022-01-18 08:19] LABS: BASO % 0.6 % (0-2.0); EOS % 4.1 % (0-4.5); HEMATOCRIT 38.7 % (35.4-49); HEMOGLOBIN 12.9 GM/dL (11.7-16.9); LYMPH % 17.2 % (8-40); MCH 29.9 pg (25.7-33.7); MCHC 33.3 g/dl (32.0-35.9); MEAN CELL VOLUME 89.6 fl (80-96); MEAN PLT VOLUME 9.7 fl (7.5-11.1); MONO % 7.7 % (3.8-10.2); NEUT % 70.4 % (42.8-82.8); PLATELET COUNT 109 10^3/uL (134-434); RBC 4.32 M/mm3 (4.00-5.60); RDW 17.1 % (11.9-15.9); WHITE BLOOD COUNT 7.5 K/mm3 (4.0-10.0)
[2022-01-18 08:25] LABS: INR 1.85 (0.83-1.09); PROTHROMBIN TIME (PATIENT) 21.4 SEC (9.7-13.0)
[2022-01-18 08:40] LABS: BLOOD UREA NITROGEN 34.9 mg/dL (7-18); CALCIUM 8.6 mg/dL (8.5-10.1); MAGNESIUM 2.2 mg/dL (1.8-2.4)
[2022-01-18 08:43] LABS: PHOSPHOROUS 3.4 mg/dL (2.5-4.9)
[2022-01-18 08:44] LABS: CREATININE 1.3 mg/dL (0.55-1.3)
[2022-01-18] MEDS: RIVAROXABAN 15 MG TABLET PO SCH (17:34)
[2022-01-18] MEDS: ATORVASTATIN CA 40 MG TABLET (FP) PO SCH (21:41)
[2022-01-18] MEDS: TAMSULOSIN HCL 0.4 MG CAP PO SCH (21:41)
[2022-01-18 21:43] VITALS: RESP 20
[2022-01-19] MEDS: FUROSEMIDE 40 MG/4 ML INJECTABLE VIAL IVPUSH SCH (06:10)
[2022-01-19 06:14] VITALS: PULSE 112
[2022-01-19 07:57] LABS: HEMATOCRIT 40.6 % (35.4-49); HEMOGLOBIN 13.3 GM/dL (11.7-16.9); MCH 29.5 pg (25.7-33.7); MCHC 32.8 g/dl (32.0-35.9); MEAN CELL VOLUME 89.9 fl (80-96); MEAN PLT VOLUME 10.2 fl (7.5-11.1); PLATELET COUNT 123 10^3/uL (134-434); RBC 4.52 M/mm3 (4.00-5.60); WHITE BLOOD COUNT 7.8 K/mm3 (4.0-10.0)
[2022-01-19 08:10] LABS: CALCIUM 8.9 mg/dL (8.5-10.1)
[2022-01-19 08:11] LABS: BLOOD UREA NITROGEN 34.2 mg/dL (7-18); MAGNESIUM 2.2 mg/dL (1.8-2.4)
[2022-01-19 08:14] LABS: CREATININE 1.4 mg/dL (0.55-1.3); PHOSPHOROUS 3.3 mg/dL (2.5-4.9)
[2022-01-19] MEDS ORDERED: FUROSEMIDE 40 MG/4 ML INJECTABLE VIAL IVPUSH SCH (10:22)
[2022-01-19 10:38] VITALS: BP 127/72; TEMP 98
[2022-01-19] MEDS ORDERED: METOLAZONE 5 MG TABLET PO ONE (13:30)
== END 2022-01-19 13:15 | disposition short-term general hospital (02) | DRG 291 ==
LOC: JER 05:40 → JERBED 08:07 → J4W 16:34
PROVIDERS: ADMIT Internal Medicine; ATTEND Internal Medicine
DX: I11.0 Hypertensive heart disease with heart failure (principal); I50.33 Acute on chronic diastolic (congestive) heart failure; J96.01 Acute respiratory failure with hypoxia; N17.9 Acute kidney failure, unspecified; I45.2 Bifascicular block; I48.91 Unspecified atrial fibrillation; E78.5 Hyperlipidemia, unspecified; E87.70 Fluid overload, unspecified; N40.0 Benign prostatic hyperplasia without lower urinary tract symptoms
CPT/HCPCS: 0241U-QW; 36415; 71045-TC-FY; 76775-TC; 80048; 80053; 81003; 82436; 82550; 82570; 82962; 83735; 83880; 84100; 84133; 84156; 84300; 84484; 85025; 85027; 85610; 85730; 86850; 86900; 86901; 87086; 93005; 93010; 94660; 97116-GP; 97162-GP; 99285-25

== ENCOUNTER 2022-12-08 11:15 | Inpatient (IN) | payer BC, OTHER ==
[2022-12-08] MEDS ORDERED: ALBUTEROL SO4 2.5/IPRATROPIUM 0.5 INH SOL 3 ML VIAL.NEB. NEB ONE ×3 (11:23→22:03)
[2022-12-08] MEDS ORDERED: FUROSEMIDE 40 MG/4 ML INJECTABLE VIAL IVPUSH ONE (11:39)
[2022-12-08] MEDS ORDERED: methylPREDNISolone NA SUCC 125 MG/2 ML VIAL IVPUSH ONE (11:40)
[2022-12-08] MEDS ORDERED: methylPREDNISolone NA SUCC 125 MG/2 ML VIAL ONE (11:53)
[2022-12-08] MEDS ORDERED: FUROSEMIDE 40 MG/4 ML INJECTABLE VIAL ONE (11:54)
[2022-12-08 11:58] LABS: VENOUS O2 SATURATION 26.3 % (70-80); VENOUS PCO2 62.7 mmHg (38-52); VENOUS PH 7.326 (7.310-7.410)
[2022-12-08 12:07] LABS: INR 1.79 (0.83-1.09); PROTHROMBIN TIME (PATIENT) 20.7 SEC (9.7-13.0)
[2022-12-08 12:10] LABS: ACTIVATED PTT 35.8 SECONDS (25.2-36.5)
[2022-12-08 12:35] LABS: ALBUMIN 3.4 g/dl (3.4-5.0); CALCIUM 8.8 mg/dL (8.5-10.1); MAGNESIUM 2.2 mg/dL (1.8-2.4)
[2022-12-08 12:40] LABS: CREATININE 1.7 mg/dL (0.55-1.3)
[2022-12-08 12:41] LABS: BILIRUBIN,TOTAL 0.8 mg/dL (0.2-1); TOT PROT 6.6 g/dl (6.4-8.2)
[2022-12-08 12:44] LABS: N-TERMINAL BNP 8061.2 pg/ml (5-450)
[2022-12-08 13:42] LABS: BASO % 0.7 % (0-2.0); EOS % 0.9 % (0-4.5); HEMATOCRIT 38.5 % (35.4-49); HEMOGLOBIN 12.4 GM/dL (11.7-16.9); LYMPH % 12.1 % (8-40); MCHC 32.1 g/dl (32.0-35.9); MEAN CELL VOLUME 90.2 fl (80-96); MEAN PLT VOLUME 9.6 fl (7.5-11.1); NEUT % 79.3 % (42.8-82.8); PLATELET COUNT 142 10^3/uL (134-434); RBC 4.27 M/mm3 (4.00-5.60); RDW 17.5 % (11.9-15.9); WHITE BLOOD COUNT 7.9 K/mm3 (4.0-10.0)
[2022-12-08 14:43] LABS: PH,URINE 5.5 (5.0-8.0); URINE APPEARANCE CLEAR; URINE BILIRUBIN NEGATIVE (NEGATIVE); URINE COLOR YELLOW; URINE GLUCOSE (UA) 2+ (NEGATIVE); URINE KETONE NEGATIVE (NEGATIVE); URINE LEUK ESTERASE NEGATIVE (NEGATIVE); URINE NITRITE NEGATIVE (NEGATIVE); URINE PROTEIN NEGATIVE (NEGATIVE); URINE UROBILINOGEN 0.2 mg/dL (0.2-1.0)
[2022-12-08] MEDS: ALBUTEROL SO4 2.5/IPRATROPIUM 0.5 INH SOL 3 ML VIAL.NEB. NEB SCH ×2 (15:29→22:05)
[2022-12-08] MEDS ORDERED: TAMSULOSIN HCL 0.4 MG CAP PO SCH (22:00)
[2022-12-08] MEDS ORDERED: ATORVASTATIN CA 20 MG TABLET (FP) ONE (22:03)
[2022-12-08] MEDS ORDERED: TAMSULOSIN HCL 0.4 MG CAP ONE (22:04)
[2022-12-08] MEDS: ATORVASTATIN CA 20 MG TABLET (FP) PO SCH (22:05)
[2022-12-08] MEDS: RIVAROXABAN 15 MG TABLET PO SCH (22:20)
[2022-12-09] MEDS ORDERED: FUROSEMIDE 40 MG/4 ML INJECTABLE VIAL ONE (06:06)
[2022-12-09] MEDS: FUROSEMIDE 40 MG/4 ML INJECTABLE VIAL IVPUSH SCH ×2 (06:11→13:43)
[2022-12-09 07:18] LABS: BASO % 0.1 % (0-2.0); HEMATOCRIT 41.8 % (35.4-49); HEMOGLOBIN 13.7 GM/dL (11.7-16.9); LYMPH % 8.9 % (8-40); MCH 29.5 pg (25.7-33.7); MCHC 32.8 g/dl (32.0-35.9); MEAN CELL VOLUME 90.1 fl (80-96); MEAN PLT VOLUME 9.9 fl (7.5-11.1); MONO % 2.2 % (3.8-10.2); NEUT % 88.8 % (42.8-82.8); PLATELET COUNT 145 10^3/uL (134-434); RBC 4.64 M/mm3 (4.00-5.60); RDW 17.4 % (11.9-15.9); WHITE BLOOD COUNT 8.7 K/mm3 (4.0-10.0)
[2022-12-09 07:36] LABS: ALBUMIN 2.9 g/dl (3.4-5.0); CALCIUM 8.5 mg/dL (8.5-10.1); MAGNESIUM 2.4 mg/dL (1.8-2.4)
[2022-12-09 07:39] LABS: CREATININE 1.4 mg/dL (0.55-1.3)
[2022-12-09 07:42] LABS: BILIRUBIN,TOTAL 0.7 mg/dL (0.2-1); TOT PROT 6.1 g/dl (6.4-8.2)
[2022-12-09] MEDS: ALBUTEROL SO4 2.5/IPRATROPIUM 0.5 INH SOL 3 ML VIAL.NEB. NEB SCH ×4 (08:58→20:05)
[2022-12-09] MEDS: TAMSULOSIN HCL 0.4 MG CAP PO SCH (08:59)
[2022-12-09] MEDS: AMIODARONE HCL 200 MG TABLET PO SCH (09:02)
[2022-12-09] MEDS: FLUTICASONE/UMECLIDIN/VILANTER(200-62.5-25 TRELEGY ELLIPTA) INAHLER IH SCH (09:27)
[2022-12-09] MEDS ORDERED: predniSONE 20 MG TABLET (UD) PO SCH (10:00)
[2022-12-09] MEDS: methylPREDNISolone NA SUCC 40 MG/1 ML VIAL IVPUSH SCH (18:40)
[2022-12-09] MEDS: RIVAROXABAN 15 MG TABLET PO SCH (18:40)
[2022-12-09] MEDS: ATORVASTATIN CA 20 MG TABLET (FP) PO SCH (22:19)
[2022-12-10] MEDS: methylPREDNISolone NA SUCC 40 MG/1 ML VIAL IVPUSH SCH ×3 (01:43→17:28)
[2022-12-10] MEDS: FUROSEMIDE 40 MG/4 ML INJECTABLE VIAL IVPUSH SCH (06:04)
[2022-12-10] MEDS: ALBUTEROL SO4 2.5/IPRATROPIUM 0.5 INH SOL 3 ML VIAL.NEB. NEB SCH ×4 (07:45→20:05)
[2022-12-10 09:32] LABS: HEMATOCRIT 40.8 % (35.4-49); MCH 30.2 pg (25.7-33.7); MCHC 34.3 g/dl (32.0-35.9); MEAN PLT VOLUME 10.2 fl (7.5-11.1); PLATELET COUNT 157 10^3/uL (134-434); RBC 4.64 M/mm3 (4.00-5.60); RDW 17.5 % (11.9-15.9); WHITE BLOOD COUNT 15.7 K/mm3 (4.0-10.0)
[2022-12-10 09:57] LABS: ANISOCYTOSIS 0; HELMET CELLS 0; HOWELL-JOLLY BODIES 0; MACROCYTOSIS 0; OVALOCYTE 0; ROULEAU 0; SICKELED CELLS 0; TARGET CELLS 0; TEAR DROP CELLS 0; TOXIC GRANULATION 0
[2022-12-10 10:00] LABS: POTASSIUM 4.2 mmol/L (3.5-5.1)
[2022-12-10 10:06] LABS: CALCIUM 8.8 mg/dL (8.5-10.1)
[2022-12-10 10:07] LABS: ALBUMIN 3.1 g/dl (3.4-5.0); BLOOD UREA NITROGEN 57.5 mg/dL (7-18)
[2022-12-10 10:10] LABS: CREATININE 2.1 mg/dL (0.55-1.3)
[2022-12-10 10:12] LABS: BILIRUBIN,TOTAL 0.5 mg/dL (0.2-1); TOT PROT 6.4 g/dl (6.4-8.2)
[2022-12-10] MEDS: TAMSULOSIN HCL 0.4 MG CAP PO SCH (10:34)
[2022-12-10] MEDS: AMIODARONE HCL 200 MG TABLET PO SCH (10:34)
[2022-12-10] MEDS: FLUTICASONE/UMECLIDIN/VILANTER(200-62.5-25 TRELEGY ELLIPTA) INAHLER IH SCH (11:28)
[2022-12-10] MEDS: RIVAROXABAN 15 MG TABLET PO SCH (17:28)
[2022-12-10] MEDS: ATORVASTATIN CA 20 MG TABLET (FP) PO SCH (21:49)
[2022-12-11] MEDS: methylPREDNISolone NA SUCC 40 MG/1 ML VIAL IVPUSH SCH ×5 (02:01→21:54)
[2022-12-11] MEDS: ALBUTEROL SO4 2.5/IPRATROPIUM 0.5 INH SOL 3 ML VIAL.NEB. NEB SCH ×4 (08:16→20:05)
[2022-12-11] MEDS: AMIODARONE HCL 200 MG TABLET PO SCH (10:59)
[2022-12-11] MEDS: FLUTICASONE/UMECLIDIN/VILANTER(200-62.5-25 TRELEGY ELLIPTA) INAHLER IH SCH (10:59)
[2022-12-11] MEDS: TAMSULOSIN HCL 0.4 MG CAP PO SCH (10:59)
[2022-12-11 14:22] VITALS: BMI 34.0
[2022-12-11] MEDS: metoPROLOL SUCCINATE 25 MG TAB.SR.24H (FP) PO SCH (15:20)
[2022-12-11] MEDS: RIVAROXABAN 15 MG TABLET PO SCH (17:12)
[2022-12-11] MEDS: ATORVASTATIN CA 20 MG TABLET (FP) PO SCH (21:54)
[2022-12-12] MEDS: methylPREDNISolone NA SUCC 40 MG/1 ML VIAL IVPUSH SCH ×4 (03:52→21:55)
[2022-12-12 08:17] LABS: POTASSIUM 4.2 mmol/L (3.5-5.1)
[2022-12-12 08:19] LABS: CALCIUM 8.9 mg/dL (8.5-10.1)
[2022-12-12 08:20] LABS: ALBUMIN 3.1 g/dl (3.4-5.0); BLOOD UREA NITROGEN 60.8 mg/dL (7-18); MAGNESIUM 2.7 mg/dL (1.8-2.4)
[2022-12-12] MEDS: ALBUTEROL SO4 2.5/IPRATROPIUM 0.5 INH SOL 3 ML VIAL.NEB. NEB SCH ×4 (08:20→20:27)
[2022-12-12 08:23] LABS: CREATININE 1.7 mg/dL (0.55-1.3); PHOSPHOROUS 4.1 mg/dL (2.5-4.9)
[2022-12-12 08:24] LABS: TOT PROT 6.2 g/dl (6.4-8.2)
[2022-12-12 08:25] LABS: BILIRUBIN,TOTAL 0.5 mg/dL (0.2-1)
[2022-12-12 08:37] LABS: HEMATOCRIT 41.6 % (35.4-49); HEMOGLOBIN 13.3 GM/dL (11.7-16.9); MCH 28.8 pg (25.7-33.7); MEAN CELL VOLUME 89.9 fl (80-96); MEAN PLT VOLUME 9.5 fl (7.5-11.1); PLATELET COUNT 142 10^3/uL (134-434); RBC 4.63 M/mm3 (4.00-5.60); WHITE BLOOD COUNT 16.4 K/mm3 (4.0-10.0)
[2022-12-12] MEDS: metoPROLOL SUCCINATE 25 MG TAB.SR.24H (FP) PO SCH (09:53)
[2022-12-12] MEDS: AMIODARONE HCL 200 MG TABLET PO SCH (09:53)
[2022-12-12] MEDS: TORSEMIDE 20 MG TABLET (FP) PO SCH (09:53)
[2022-12-12] MEDS: TAMSULOSIN HCL 0.4 MG CAP PO SCH (09:54)
[2022-12-12] MEDS: FLUTICASONE/UMECLIDIN/VILANTER(200-62.5-25 TRELEGY ELLIPTA) INAHLER IH SCH (11:16)
[2022-12-12] MEDS: RIVAROXABAN 15 MG TABLET PO SCH (17:28)
[2022-12-12] MEDS: ATORVASTATIN CA 20 MG TABLET (FP) PO SCH (22:04)
[2022-12-13] MEDS: methylPREDNISolone NA SUCC 40 MG/1 ML VIAL IVPUSH SCH ×4 (03:50→21:58)
[2022-12-13 07:29] LABS: HEMATOCRIT 42.5 % (35.4-49); HEMOGLOBIN 13.6 GM/dL (11.7-16.9); MCH 28.9 pg (25.7-33.7); MEAN CELL VOLUME 90.3 fl (80-96); MEAN PLT VOLUME 9.6 fl (7.5-11.1); PLATELET COUNT 126 10^3/uL (134-434); RDW 17.9 % (11.9-15.9); WHITE BLOOD COUNT 15.9 K/mm3 (4.0-10.0)
[2022-12-13 07:49] LABS: POTASSIUM 4.1 mmol/L (3.5-5.1)
[2022-12-13 07:52] LABS: CALCIUM 8.6 mg/dL (8.5-10.1)
[2022-12-13 07:53] LABS: BLOOD UREA NITROGEN 66.7 mg/dL (7-18); MAGNESIUM 2.5 mg/dL (1.8-2.4)
[2022-12-13 07:56] LABS: PHOSPHOROUS 4.9 mg/dL (2.5-4.9)
[2022-12-13 07:57] LABS: BILIRUBIN,TOTAL 0.6 mg/dL (0.2-1); TOT PROT 6.1 g/dl (6.4-8.2)
[2022-12-13] MEDS: ALBUTEROL SO4 2.5/IPRATROPIUM 0.5 INH SOL 3 ML VIAL.NEB. NEB SCH ×4 (08:10→20:08)
[2022-12-13] MEDS: TAMSULOSIN HCL 0.4 MG CAP PO SCH (08:25)
[2022-12-13 09:20] LABS: ANISOCYTOSIS 0; MACROCYTOSIS 0
[2022-12-13] MEDS: metoPROLOL SUCCINATE 25 MG TAB.SR.24H (FP) PO SCH (09:28)
[2022-12-13] MEDS: AMIODARONE HCL 200 MG TABLET PO SCH (09:28)
[2022-12-13] MEDS: TORSEMIDE 20 MG TABLET (FP) PO SCH (09:28)
[2022-12-13] MEDS: FLUTICASONE/UMECLIDIN/VILANTER(200-62.5-25 TRELEGY ELLIPTA) INAHLER IH SCH (09:33)
[2022-12-13] MEDS: BENZOCAINE/MENTH/CETYLPYRD CL 1 EACH LOZENGE MM PRN (14:20)
[2022-12-13] MEDS: RIVAROXABAN 15 MG TABLET PO SCH (17:02)
[2022-12-13] MEDS: ATORVASTATIN CA 20 MG TABLET (FP) PO SCH (21:58)
[2022-12-14] MEDS: methylPREDNISolone NA SUCC 40 MG/1 ML VIAL IVPUSH SCH ×4 (02:13→21:48)
[2022-12-14] MEDS: BENZOCAINE/MENTH/CETYLPYRD CL 1 EACH LOZENGE MM PRN (07:33)
[2022-12-14 07:34] LABS: HEMOGLOBIN 13.6 GM/dL (11.7-16.9); MCHC 32.5 g/dl (32.0-35.9); MEAN CELL VOLUME 89.2 fl (80-96); MEAN PLT VOLUME 9.7 fl (7.5-11.1); PLATELET COUNT 123 10^3/uL (134-434); RDW 17.7 % (11.9-15.9); WHITE BLOOD COUNT 14.8 K/mm3 (4.0-10.0)
[2022-12-14 07:58] LABS: CALCIUM 8.5 mg/dL (8.5-10.1)
[2022-12-14 07:59] LABS: MAGNESIUM 2.2 mg/dL (1.8-2.4)
[2022-12-14 08:02] LABS: CREATININE 2.2 mg/dL (0.55-1.3); PHOSPHOROUS 4.8 mg/dL (2.5-4.9)
[2022-12-14 08:04] LABS: BILIRUBIN,TOTAL 0.6 mg/dL (0.2-1); TOT PROT 6.1 g/dl (6.4-8.2)
[2022-12-14] MEDS: ALBUTEROL SO4 2.5/IPRATROPIUM 0.5 INH SOL 3 ML VIAL.NEB. NEB SCH ×4 (08:06→20:13)
[2022-12-14 08:42] LABS: ANISOCYTOSIS 0; HELMET CELLS 0; HOWELL-JOLLY BODIES 0; MACROCYTOSIS 0; OVALOCYTE 0; ROULEAU 0; SICKELED CELLS 0; TARGET CELLS 0; TEAR DROP CELLS 0; TOXIC GRANULATION 0
[2022-12-14] MEDS: TAMSULOSIN HCL 0.4 MG CAP PO SCH (08:42)
[2022-12-14] MEDS: AMIODARONE HCL 200 MG TABLET PO SCH (09:43)
[2022-12-14] MEDS: metoPROLOL SUCCINATE 25 MG TAB.SR.24H (FP) PO SCH (09:43)
[2022-12-14] MEDS: TORSEMIDE 20 MG TABLET (FP) PO SCH (09:43)
[2022-12-14] MEDS: FLUTICASONE/UMECLIDIN/VILANTER(200-62.5-25 TRELEGY ELLIPTA) INAHLER IH SCH (12:03)
[2022-12-14] MEDS: ATORVASTATIN CA 20 MG TABLET (FP) PO SCH (21:48)
[2022-12-15] MEDS: methylPREDNISolone NA SUCC 40 MG/1 ML VIAL IVPUSH SCH (03:22)
[2022-12-15] MEDS: ALBUTEROL SO4 2.5/IPRATROPIUM 0.5 INH SOL 3 ML VIAL.NEB. NEB SCH ×4 (07:55→20:19)
[2022-12-15 09:01] LABS: HEMATOCRIT 41.2 % (35.4-49); HEMOGLOBIN 13.5 GM/dL (11.7-16.9); MCH 29.1 pg (25.7-33.7); MCHC 32.7 g/dl (32.0-35.9); MEAN PLT VOLUME 9.9 fl (7.5-11.1); PLATELET COUNT 124 10^3/uL (134-434); RBC 4.63 M/mm3 (4.00-5.60); RDW 17.8 % (11.9-15.9); WHITE BLOOD COUNT 12.9 K/mm3 (4.0-10.0)
[2022-12-15 09:04] LABS: INR 1.17 (0.83-1.09); PROTHROMBIN TIME (PATIENT) 13.6 SEC (9.7-13.0)
[2022-12-15 09:06] LABS: ACTIVATED PTT 24.2 SECONDS (25.2-36.5)
[2022-12-15 09:19] LABS: POTASSIUM 3.6 mmol/L (3.5-5.1)
[2022-12-15] MEDS: guaiFENesin/CODEINE 10 ML UNIT-DOSE CUPS PO PRN ×2 (09:26→21:52)
[2022-12-15] MEDS: AMIODARONE HCL 200 MG TABLET PO SCH (09:26)
[2022-12-15] MEDS: metoPROLOL SUCCINATE 25 MG TAB.SR.24H (FP) PO SCH (09:26)
[2022-12-15] MEDS: TORSEMIDE 20 MG TABLET (FP) PO SCH (09:26)
[2022-12-15] MEDS: TAMSULOSIN HCL 0.4 MG CAP PO SCH (09:26)
[2022-12-15] MEDS: BENZOCAINE/MENTH/CETYLPYRD CL 1 EACH LOZENGE MM PRN ×2 (09:26→17:28)
[2022-12-15 09:29] LABS: BLOOD UREA NITROGEN 80.5 mg/dL (7-18); CALCIUM 8.4 mg/dL (8.5-10.1)
[2022-12-15 09:30] LABS: ALBUMIN 2.8 g/dl (3.4-5.0)
[2022-12-15 09:32] LABS: CREATININE 2.1 mg/dL (0.55-1.3)
[2022-12-15 09:34] LABS: BILIRUBIN,TOTAL 0.7 mg/dL (0.2-1); TOT PROT 5.6 g/dl (6.4-8.2)
[2022-12-15] MEDS: FLUTICASONE/UMECLIDIN/VILANTER(200-62.5-25 TRELEGY ELLIPTA) INAHLER IH SCH (09:53)
[2022-12-15] MEDS ORDERED: methylPREDNISolone NA SUCC 40 MG/1 ML VIAL IVPUSH SCH ×2 (10:00→22:00)
[2022-12-15] MEDS: RIVAROXABAN 15 MG TABLET PO SCH (17:28)
[2022-12-15] MEDS: ATORVASTATIN CA 20 MG TABLET (FP) PO SCH (21:52)
[2022-12-16 06:28] VITALS: RESP 18
[2022-12-16] MEDS: ALBUTEROL SO4 2.5/IPRATROPIUM 0.5 INH SOL 3 ML VIAL.NEB. NEB SCH ×3 (08:17→16:09)
[2022-12-16 08:30] LABS: HEMATOCRIT 39.9 % (35.4-49); HEMOGLOBIN 12.9 GM/dL (11.7-16.9); MCH 28.9 pg (25.7-33.7); MCHC 32.4 g/dl (32.0-35.9); MEAN CELL VOLUME 89.1 fl (80-96); MEAN PLT VOLUME 9.7 fl (7.5-11.1); PLATELET COUNT 113 10^3/uL (134-434); RBC 4.48 M/mm3 (4.00-5.60); RDW 17.6 % (11.9-15.9); WHITE BLOOD COUNT 15.4 K/mm3 (4.0-10.0)
[2022-12-16 08:46] LABS: POTASSIUM 3.4 mmol/L (3.5-5.1)
[2022-12-16 08:51] LABS: BLOOD UREA NITROGEN 76.8 mg/dL (7-18); CALCIUM 8.3 mg/dL (8.5-10.1)
[2022-12-16 08:56] LABS: BILIRUBIN,TOTAL 0.8 mg/dL (0.2-1); TOT PROT 5.1 g/dl (6.4-8.2)
[2022-12-16 09:10] LABS: ALBUMIN 2.6 g/dl (3.4-5.0)
[2022-12-16] MEDS ORDERED: POTASSIUM CHLORIDE ORAL LIQUID 20 MEQ/15 ML PO ONE (09:12)
[2022-12-16] MEDS ORDERED: methylPREDNISolone NA SUCC 40 MG/1 ML VIAL IVPUSH ONE (10:00)
[2022-12-16] MEDS: AMIODARONE HCL 200 MG TABLET PO SCH (10:14)
[2022-12-16] MEDS: guaiFENesin/CODEINE 10 ML UNIT-DOSE CUPS PO PRN (10:14)
[2022-12-16] MEDS: TORSEMIDE 20 MG TABLET (FP) PO SCH (10:14)
[2022-12-16] MEDS: FLUTICASONE/UMECLIDIN/VILANTER(200-62.5-25 TRELEGY ELLIPTA) INAHLER IH SCH (10:14)
[2022-12-16] MEDS: TAMSULOSIN HCL 0.4 MG CAP PO SCH (10:14)
[2022-12-16] MEDS: metoPROLOL SUCCINATE 25 MG TAB.SR.24H (FP) PO SCH (10:14)
[2022-12-16] MEDS: BENZOCAINE/MENTH/CETYLPYRD CL 1 EACH LOZENGE MM PRN (10:15)
[2022-12-16 14:15] VITALS: BP 112/61; PULSE 65; TEMP 97.5
== END 2022-12-16 16:12 | disposition home health service (06) | DRG 191 ==
LOC: JER 11:15 → JERBED 14:54 → J4S 12-09 16:23
PROVIDERS: ADMIT Internal Medicine; ATTEND Internal Medicine
DX: J44.1 Chronic obstructive pulmonary disease with (acute) exacerbation (principal); I13.0 Hypertensive heart and chronic kidney disease with heart failure and stage 1 through stage 4 chronic kidney disease, or unspecified chronic kidney disease; B97.4 Respiratory syncytial virus as the cause of diseases classified elsewhere; I50.32 Chronic diastolic (congestive) heart failure; J96.11 Chronic respiratory failure with hypoxia; N17.9 Acute kidney failure, unspecified; R04.2 Hemoptysis; E87.70 Fluid overload, unspecified; I48.91 Unspecified atrial fibrillation; E78.5 Hyperlipidemia, unspecified; N40.0 Benign prostatic hyperplasia without lower urinary tract symptoms; I45.10 Unspecified right bundle-branch block; N18.9 Chronic kidney disease, unspecified; I35.0 Nonrheumatic aortic (valve) stenosis; Z95.2 Presence of prosthetic heart valve; Z85.46 Personal history of malignant neoplasm of prostate; Z96.653 Presence of artificial knee joint, bilateral; Z99.81 Dependence on supplemental oxygen
CPT/HCPCS: 0241U-QW; 36415; 71045-TC-FY; 76775-TC; 76856-TC; 80053; 81003; 82803; 83735; 83880; 84100; 84484; 85025; 85027; 85610; 85730; 87070; 87086; 87186; 87205; 93005; 93010; 93306-TC; 94640; 97116-GP; 97161-GP; 99291; 99292

== ENCOUNTER 2022-12-18 11:07 | Inpatient (IN) | payer BC, OTHER ==
[2022-12-18] MEDS: ALBUTEROL SO4 2.5/IPRATROPIUM 0.5 INH SOL 3 ML VIAL.NEB. NEB SCH ×4 (11:59→13:00)
[2022-12-18] MEDS ORDERED: methylPREDNISolone NA SUCC 125 MG/2 ML VIAL ONE (12:02)
[2022-12-18 12:07] LABS: HEMATOCRIT 44.4 % (35.4-49); MCH 29.7 pg (25.7-33.7); MCHC 33.7 g/dl (32.0-35.9); PLATELET COUNT 109 10^3/uL (134-434); RBC 5.05 M/mm3 (4.00-5.60)
[2022-12-18] MEDS ORDERED: methylPREDNISolone NA SUCC 125 MG/2 ML VIAL IVPUSH ONE (12:12)
[2022-12-18] MEDS ORDERED: SODIUM CHLORIDE 0.9% 500 ML INFUS.BAG IV ONE ×2 (12:18→15:04)
[2022-12-18] MEDS ORDERED: AZITHROMYCIN IVPB 500 MG in DEXTROSE 5%-WATER - 250 ML IVPB ONE (12:21)
[2022-12-18 12:22] LABS: INR 2.69 (0.83-1.09); PROTHROMBIN TIME (PATIENT) 30.9 SEC (9.7-13.0)
[2022-12-18] MEDS ORDERED: VANCOMYCIN HCL 1,500 MG in DEXTROSE 5%-WATER - 500 ML IVPB ONE (12:22)
[2022-12-18] MEDS ORDERED: PIPERACILLIN/TAZOB 4.5 GM 4.5 GM in DEXTROSE 5%-WATER 100 ML IVPB ONE (12:23)
[2022-12-18 12:25] LABS: ACTIVATED PTT 36.2 SECONDS (25.2-36.5)
[2022-12-18] MEDS ORDERED: PIPERACILLIN/TAZOB 2.25 GM 2.25 GM in DEXTROSE 5%-WATER - 50 ML IVPB ONE (12:29)
[2022-12-18 12:32] LABS: POTASSIUM 3.8 mmol/L (3.5-5.1)
[2022-12-18 12:33] LABS: BLOOD UREA NITROGEN 73.4 mg/dL (7-18); CALCIUM 8.5 mg/dL (8.5-10.1)
[2022-12-18 12:35] LABS: ALBUMIN 2.4 g/dl (3.4-5.0)
[2022-12-18 12:38] LABS: CREATININE 2.3 mg/dL (0.55-1.3); TOT PROT 5.4 g/dl (6.4-8.2)
[2022-12-18 12:40] LABS: BILIRUBIN,TOTAL 1.7 mg/dL (0.2-1)
[2022-12-18] MEDS ORDERED: AZITHROMYCIN IVPB 500 MG/250 ML BAG IVPB ONE (13:20)
[2022-12-18] MEDS ORDERED: PIPERACILLIN/TAZOB 2.25 GM 2.25 GM/50 ML BAG IVPB ONE (13:20)
[2022-12-18 13:48] LABS: ANISOCYTOSIS 1+; MACROCYTOSIS 0
[2022-12-18 13:54] LABS: VENOUS BASE EXCESS 8.5 mmol/L (-2-2); VENOUS O2 SATURATION 50.8 % (70-80); VENOUS PCO2 57.7 mmHg (38-52); VENOUS PH 7.408 (7.310-7.410)
[2022-12-18] MEDS ORDERED: VANCOMYCIN PREMIX 1.5 GM 1,500 MG/300 ML BAG IVPB ONE (14:00)
[2022-12-18] MEDS ORDERED: NOREPINEPHRINE BITARTRATE 4 MG/4 ML ML IV ONE ×2 (15:05→15:07)
[2022-12-18] MEDS: NOREPINEPHRINE 0.9 % NACL 8 MG/250 ML BAG IVPB SCH (15:15)
[2022-12-18] MEDS ORDERED: ALBUTEROL SO4 2.5/IPRATROPIUM 0.5 INH SOL 3 ML VIAL.NEB. NEB ONE (15:18)
[2022-12-18] MEDS: AMIODARONE HCL 200 MG TABLET PO SCH (16:54)
[2022-12-18 17:46] LABS: URINE APPEARANCE CLEAR; URINE BILIRUBIN NEGATIVE (NEGATIVE); URINE COLOR YELLOW; URINE GLUCOSE (UA) 1+ (NEGATIVE); URINE KETONE NEGATIVE (NEGATIVE); URINE LEUK ESTERASE NEGATIVE (NEGATIVE); URINE NITRITE NEGATIVE (NEGATIVE); URINE PROTEIN NEGATIVE (NEGATIVE); URINE UROBILINOGEN 0.2 mg/dL (0.2-1.0)
[2022-12-18] MEDS ORDERED: RIVAROXABAN 15 MG TABLET PO SCH (18:00)
[2022-12-18] MEDS: FLUTICASONE/UMECLIDIN/VILANTER(200-62.5-25 TRELEGY ELLIPTA) INAHLER IH SCH (18:20)
[2022-12-18] MEDS: MUPIROCIN 2% TOPICAL OINTMENT FOR DECOLONIZATION NS SCH ×2 (18:21→21:24)
[2022-12-18] MEDS: PIPERACILLIN/TAZOB 2.25 GM 2.25 GM in DEXTROSE 5%-WATER - 50 ML IVPB SCH (19:57)
[2022-12-18] MEDS: RIVAROXABAN 15 MG TABLET PO SCH (21:24)
[2022-12-18] MEDS: CHLORHEXIDINE GLUCONATE 4% CLEANSER FOR DECOLONIZATION TP SCH (21:24)
[2022-12-19] MEDS: PIPERACILLIN/TAZOB 2.25 GM 2.25 GM in DEXTROSE 5%-WATER - 50 ML IVPB SCH ×3 (03:10→22:04)
[2022-12-19 07:23] LABS: HEMATOCRIT 38.7 % (35.4-49); HEMOGLOBIN 12.8 GM/dL (11.7-16.9); MCH 28.9 pg (25.7-33.7); MCHC 32.9 g/dl (32.0-35.9); MEAN CELL VOLUME 87.8 fl (80-96); MEAN PLT VOLUME 10.6 fl (7.5-11.1); PLATELET COUNT 111 10^3/uL (134-434); RBC 4.41 M/mm3 (4.00-5.60); RDW 17.6 % (11.9-15.9); WHITE BLOOD COUNT 22.5 K/mm3 (4.0-10.0)
[2022-12-19 07:32] LABS: MAGNESIUM 2.1 mg/dL (1.8-2.4)
[2022-12-19 07:35] LABS: PHOSPHOROUS 4.8 mg/dL (2.5-4.9)
[2022-12-19] MEDS ORDERED: PIPERACILLIN/TAZOB 2.25 GM 2.25 GM in DEXTROSE 5%-WATER - 50 ML IVPB SCH (09:00)
[2022-12-19] MEDS: MUPIROCIN 2% TOPICAL OINTMENT FOR DECOLONIZATION NS SCH ×2 (09:32→22:04)
[2022-12-19] MEDS: AMIODARONE HCL 200 MG TABLET PO SCH (09:32)
[2022-12-19] MEDS: FLUTICASONE/UMECLIDIN/VILANTER(200-62.5-25 TRELEGY ELLIPTA) INAHLER IH SCH (09:33)
[2022-12-19 09:50] LABS: CHLORIDE 99 mmol/L (98-107); POTASSIUM 3.1 mmol/L (3.5-5.1); SODIUM 140 mmol/L (136-145)
[2022-12-19 09:52] LABS: ANION GAP 11 MMOL/L (8-16); BLOOD UREA NITROGEN 68.7 mg/dL (7-18); CALCIUM 7.9 mg/dL (8.5-10.1); CO2 31 mmol/L (21-32); GLUCOSE,RANDOM 153 mg/dL (74-106)
[2022-12-19 09:55] LABS: CREATININE 2.2 mg/dL (0.55-1.3); SGPT/ALT 52 U/L (13-61)
[2022-12-19 09:57] LABS: BILIRUBIN,TOTAL 1.4 mg/dL (0.2-1); SGOT/AST 28 U/L (15-37); TOT PROT 4.6 g/dl (6.4-8.2)
[2022-12-19 09:58] LABS: ALK PHOS 72 U/L (45-117)
[2022-12-19 10:00] LABS: ALBUMIN 1.9 g/dl (3.4-5.0)
[2022-12-19] MEDS ORDERED: methylPREDNISolone NA SUCC 125 MG/2 ML VIAL IVPUSH SCH (10:00)
[2022-12-19] MEDS: methylPREDNISolone NA SUCC 40 MG/1 ML VIAL IVPUSH SCH ×3 (10:10→22:03)
[2022-12-19] MEDS: DOXYCYCLINE INJECTION 100 MG in DEXTROSE 5%-WATER 100 ML IVPB SCH ×2 (10:10→22:04)
[2022-12-19] MEDS: KCL 10 MEQ IVPB 10 MEQ/100 ML INFUS.BAG IVPB SCH ×3 (11:12→13:42)
[2022-12-19] MEDS: LEVALBUTEROL HCL 0.63 MG/3 ML VIAL.NEB. IH PRN (12:43)
[2022-12-19] MEDS: NOREPINEPHRINE 0.9 % NACL 8 MG/250 ML BAG IVPB SCH (17:59)
[2022-12-19] MEDS: CHLORHEXIDINE GLUCONATE 4% CLEANSER FOR DECOLONIZATION TP SCH (22:04)
[2022-12-19] MEDS: RIVAROXABAN 15 MG TABLET PO SCH (22:04)
[2022-12-19] MEDS ORDERED: PNEUMOC 20-VAL CONJ-DIP CRM/PF 0.5 ML SYRINGE IM ONE (22:43)
[2022-12-19] MEDS ORDERED: FLU VACCINE (FLULAVAL) PF 60 MCG/0.5 ML SYRINGE 2023-2024 IM ONE (22:43)
[2022-12-20] MEDS: LEVALBUTEROL HCL 0.63 MG/3 ML VIAL.NEB. IH PRN (02:50)
[2022-12-20] MEDS ORDERED: MELATONIN 5 MG TABLETS PO ONE (02:56)
[2022-12-20] MEDS: methylPREDNISolone NA SUCC 40 MG/1 ML VIAL IVPUSH SCH ×4 (03:14→20:18)
[2022-12-20] MEDS: PIPERACILLIN/TAZOB 2.25 GM 2.25 GM in DEXTROSE 5%-WATER - 50 ML IVPB SCH ×4 (03:15→20:18)
[2022-12-20] MEDS: guaiFENesin/D-METHORPHAN HB 10 ML UNIT-DOSE CUPS PO PRN ×2 (06:48→22:58)
[2022-12-20 07:46] LABS: HEMATOCRIT 44.2 % (35.4-49); HEMOGLOBIN 14.3 GM/dL (11.7-16.9); MCH 28.9 pg (25.7-33.7); MCHC 32.4 g/dl (32.0-35.9); MEAN CELL VOLUME 89.2 fl (80-96); MEAN PLT VOLUME 10.8 fl (7.5-11.1); PLATELET COUNT 108 10^3/uL (134-434); RBC 4.95 M/mm3 (4.00-5.60); RDW 18.5 % (11.9-15.9); WHITE BLOOD COUNT 26.7 K/mm3 (4.0-10.0)
[2022-12-20 07:53] LABS: POTASSIUM 3.7 mmol/L (3.5-5.1)
[2022-12-20 07:56] LABS: ALBUMIN 1.8 g/dl (3.4-5.0); BLOOD UREA NITROGEN 65.6 mg/dL (7-18); MAGNESIUM 2.5 mg/dL (1.8-2.4)
[2022-12-20 07:59] LABS: CREATININE 1.9 mg/dL (0.55-1.3)
[2022-12-20 08:01] LABS: BILIRUBIN,TOTAL 0.9 mg/dL (0.2-1); TOT PROT 5.1 g/dl (6.4-8.2)
[2022-12-20] MEDS ORDERED: FUROSEMIDE 40 MG/4 ML INJECTABLE VIAL IVPUSH ONE (08:30)
[2022-12-20] MEDS: AMINO ACIDS/PROTEIN HYDROLYS 30 ML LIQUID.PKT PO SCH (08:30)
[2022-12-20] MEDS: ALBUTEROL SO4 2.5/IPRATROPIUM 0.5 INH SOL 3 ML VIAL.NEB. NEB SCH ×4 (08:36→20:14)
[2022-12-20] MEDS: MUPIROCIN 2% TOPICAL OINTMENT FOR DECOLONIZATION NS SCH ×2 (09:20→21:19)
[2022-12-20] MEDS: MULTIVITAMINS (DAILY MVI) TABLET (FP) PO SCH (09:20)
[2022-12-20] MEDS: FLUTICASONE/UMECLIDIN/VILANTER(200-62.5-25 TRELEGY ELLIPTA) INAHLER IH SCH (09:20)
[2022-12-20] MEDS: DOXYCYCLINE INJECTION 100 MG in DEXTROSE 5%-WATER 100 ML IVPB SCH (09:20)
[2022-12-20] MEDS: ASCORBIC ACID 500 MG TABLET (FP) PO SCH (09:23)
[2022-12-20] MEDS ORDERED: KCL 20 MEQ PREMIX BAG 100 ML IVPB ONE (13:00)
[2022-12-20] MEDS: AZITHROMYCIN IVPB 500 MG/250 ML BAG IVPB SCH (14:34)
[2022-12-20] MEDS: metoPROLOL SUCCINATE 25 MG TAB.SR.24H (FP) PO SCH (17:14)
[2022-12-20] MEDS: RIVAROXABAN 15 MG TABLET PO SCH (21:19)
[2022-12-20] MEDS: CHLORHEXIDINE GLUCONATE 4% CLEANSER FOR DECOLONIZATION TP SCH (21:19)
[2022-12-20] MEDS: TAMSULOSIN HCL 0.4 MG CAP PO SCH (21:19)
[2022-12-21] MEDS: methylPREDNISolone NA SUCC 40 MG/1 ML VIAL IVPUSH SCH ×3 (02:07→21:00)
[2022-12-21] MEDS: PIPERACILLIN/TAZOB 2.25 GM 2.25 GM in DEXTROSE 5%-WATER - 50 ML IVPB SCH ×4 (02:07→21:00)
[2022-12-21] MEDS: ALBUTEROL SO4 2.5/IPRATROPIUM 0.5 INH SOL 3 ML VIAL.NEB. NEB SCH ×4 (07:10→20:00)
[2022-12-21 07:59] LABS: HEMATOCRIT 37.5 % (35.4-49); HEMOGLOBIN 12.2 GM/dL (11.7-16.9); MCHC 32.6 g/dl (32.0-35.9); MEAN CELL VOLUME 88.8 fl (80-96); MEAN PLT VOLUME 10.9 fl (7.5-11.1); PLATELET COUNT 101 10^3/uL (134-434); RBC 4.22 M/mm3 (4.00-5.60); RDW 18.3 % (11.9-15.9); WHITE BLOOD COUNT 24.8 K/mm3 (4.0-10.0)
[2022-12-21 08:17] LABS: POTASSIUM 3.2 mmol/L (3.5-5.1)
[2022-12-21 08:22] LABS: ALBUMIN 1.7 g/dl (3.4-5.0); BLOOD UREA NITROGEN 68.6 mg/dL (7-18); MAGNESIUM 2.3 mg/dL (1.8-2.4)
[2022-12-21 08:25] LABS: CREATININE 1.9 mg/dL (0.55-1.3); PHOSPHOROUS 4.1 mg/dL (2.5-4.9)
[2022-12-21 08:26] LABS: TOT PROT 4.6 g/dl (6.4-8.2)
[2022-12-21 08:27] LABS: BILIRUBIN,TOTAL 0.7 mg/dL (0.2-1)
[2022-12-21] MEDS ORDERED: KCL 10 MEQ IVPB 10 MEQ/100 ML INFUS.BAG IVPB SCH (09:15)
[2022-12-21] MEDS: KCL 20 MEQ PREMIX BAG 100 ML IVPB SCH ×2 (09:17→11:04)
[2022-12-21] MEDS: MULTIVITAMINS (DAILY MVI) TABLET (FP) PO SCH (09:18)
[2022-12-21] MEDS: AMINO ACIDS/PROTEIN HYDROLYS 30 ML LIQUID.PKT PO SCH (09:18)
[2022-12-21] MEDS: ASCORBIC ACID 500 MG TABLET (FP) PO SCH (09:18)
[2022-12-21 09:21] LABS: ANISOCYTOSIS 1+
[2022-12-21] MEDS: metoPROLOL SUCCINATE 25 MG TAB.SR.24H (FP) PO SCH (11:03)
[2022-12-21] MEDS: MUPIROCIN 2% TOPICAL OINTMENT FOR DECOLONIZATION NS SCH ×2 (11:04→21:01)
[2022-12-21] MEDS: FLUTICASONE/UMECLIDIN/VILANTER(200-62.5-25 TRELEGY ELLIPTA) INAHLER IH SCH (11:04)
[2022-12-21] MEDS: AZITHROMYCIN IVPB 500 MG/250 ML BAG IVPB SCH (13:36)
[2022-12-21] MEDS: TAMSULOSIN HCL 0.4 MG CAP PO SCH (21:00)
[2022-12-21] MEDS: guaiFENesin/D-METHORPHAN HB 10 ML UNIT-DOSE CUPS PO PRN (21:00)
[2022-12-21] MEDS: CHLORHEXIDINE GLUCONATE 4% CLEANSER FOR DECOLONIZATION TP SCH (21:01)
[2022-12-22] MEDS: guaiFENesin/D-METHORPHAN HB 10 ML UNIT-DOSE CUPS PO PRN (02:32)
[2022-12-22] MEDS: PIPERACILLIN/TAZOB 2.25 GM 2.25 GM in DEXTROSE 5%-WATER - 50 ML IVPB SCH ×4 (02:35→20:42)
[2022-12-22 07:36] LABS: HEMATOCRIT 38.7 % (35.4-49); HEMOGLOBIN 12.3 GM/dL (11.7-16.9); MCH 28.3 pg (25.7-33.7); MCHC 31.7 g/dl (32.0-35.9); MEAN PLT VOLUME 11.1 fl (7.5-11.1); PLATELET COUNT 95 10^3/uL (134-434); RBC 4.34 M/mm3 (4.00-5.60); RDW 18.4 % (11.9-15.9); WHITE BLOOD COUNT 22.3 K/mm3 (4.0-10.0)
[2022-12-22 07:54] LABS: POTASSIUM 3.9 mmol/L (3.5-5.1)
[2022-12-22 08:00] LABS: PHOSPHOROUS 4.3 mg/dL (2.5-4.9)
[2022-12-22 08:01] LABS: CALCIUM 8.3 mg/dL (8.5-10.1)
[2022-12-22 08:02] LABS: ALBUMIN 1.7 g/dl (3.4-5.0); BLOOD UREA NITROGEN 71.7 mg/dL (7-18); MAGNESIUM 2.4 mg/dL (1.8-2.4)
[2022-12-22 08:05] LABS: BILIRUBIN,TOTAL 0.8 mg/dL (0.2-1); CREATININE 1.8 mg/dL (0.55-1.3); TOT PROT 4.9 g/dl (6.4-8.2)
[2022-12-22] MEDS: ALBUTEROL SO4 2.5/IPRATROPIUM 0.5 INH SOL 3 ML VIAL.NEB. NEB SCH ×4 (08:20→20:50)
[2022-12-22] MEDS: metoPROLOL SUCCINATE 25 MG TAB.SR.24H (FP) PO SCH (09:36)
[2022-12-22] MEDS: methylPREDNISolone NA SUCC 40 MG/1 ML VIAL IVPUSH SCH ×2 (09:36→21:05)
[2022-12-22] MEDS: ASCORBIC ACID 500 MG TABLET (FP) PO SCH (09:36)
[2022-12-22] MEDS: AMINO ACIDS/PROTEIN HYDROLYS 30 ML LIQUID.PKT PO SCH (09:36)
[2022-12-22] MEDS: MUPIROCIN 2% TOPICAL OINTMENT FOR DECOLONIZATION NS SCH ×2 (09:36→21:06)
[2022-12-22] MEDS: MULTIVITAMINS (DAILY MVI) TABLET (FP) PO SCH (09:36)
[2022-12-22] MEDS: APIXABAN 2.5 MG TABLET PO SCH ×2 (09:36→21:05)
[2022-12-22] MEDS: FLUTICASONE/UMECLIDIN/VILANTER(200-62.5-25 TRELEGY ELLIPTA) INAHLER IH SCH (09:37)
[2022-12-22 11:23] LABS: ANISOCYTOSIS 0; HELMET CELLS 0; HOWELL-JOLLY BODIES 0; MACROCYTOSIS 0; OVALOCYTE 0; ROULEAU 0; SICKELED CELLS 0; TARGET CELLS 0; TEAR DROP CELLS 0; TOXIC GRANULATION 0
[2022-12-22] MEDS: AZITHROMYCIN IVPB 500 MG/250 ML BAG IVPB SCH (13:09)
[2022-12-22] MEDS: TAMSULOSIN HCL 0.4 MG CAP PO SCH (21:05)
[2022-12-22] MEDS: CHLORHEXIDINE GLUCONATE 4% CLEANSER FOR DECOLONIZATION TP SCH (21:06)
[2022-12-23] MEDS: PIPERACILLIN/TAZOB 2.25 GM 2.25 GM in DEXTROSE 5%-WATER - 50 ML IVPB SCH ×4 (02:10→20:40)
[2022-12-23] MEDS: ALBUTEROL SO4 2.5/IPRATROPIUM 0.5 INH SOL 3 ML VIAL.NEB. NEB SCH ×4 (08:02→20:59)
[2022-12-23 08:11] LABS: HEMATOCRIT 36.5 % (35.4-49); HEMOGLOBIN 12.2 GM/dL (11.7-16.9); MCH 29.1 pg (25.7-33.7); MCHC 33.5 g/dl (32.0-35.9); MEAN CELL VOLUME 86.8 fl (80-96); MEAN PLT VOLUME 10.6 fl (7.5-11.1); PLATELET COUNT 76 10^3/uL (134-434); RDW 18.3 % (11.9-15.9); WHITE BLOOD COUNT 20.6 K/mm3 (4.0-10.0)
[2022-12-23 08:27] LABS: POTASSIUM 3.9 mmol/L (3.5-5.1)
[2022-12-23 08:30] LABS: BLOOD UREA NITROGEN 63.8 mg/dL (7-18)
[2022-12-23 08:33] LABS: ALBUMIN 1.8 g/dl (3.4-5.0); CREATININE 1.7 mg/dL (0.55-1.3)
[2022-12-23 08:34] LABS: MAGNESIUM 2.4 mg/dL (1.8-2.4)
[2022-12-23 08:35] LABS: BILIRUBIN,TOTAL 0.8 mg/dL (0.2-1); CALCIUM 8.2 mg/dL (8.5-10.1)
[2022-12-23] MEDS: methylPREDNISolone NA SUCC 40 MG/1 ML VIAL IVPUSH SCH ×2 (09:59→21:09)
[2022-12-23] MEDS: AMINO ACIDS/PROTEIN HYDROLYS 30 ML LIQUID.PKT PO SCH ×2 (10:00→18:22)
[2022-12-23] MEDS: ASCORBIC ACID 500 MG TABLET (FP) PO SCH (10:00)
[2022-12-23] MEDS: MUPIROCIN 2% TOPICAL OINTMENT FOR DECOLONIZATION NS SCH (10:00)
[2022-12-23] MEDS: MULTIVITAMINS (DAILY MVI) TABLET (FP) PO SCH (10:00)
[2022-12-23] MEDS: APIXABAN 2.5 MG TABLET PO SCH ×2 (10:00→21:09)
[2022-12-23] MEDS: metoPROLOL SUCCINATE 25 MG TAB.SR.24H (FP) PO SCH (10:00)
[2022-12-23] MEDS: FLUTICASONE/UMECLIDIN/VILANTER(200-62.5-25 TRELEGY ELLIPTA) INAHLER IH SCH (10:01)
[2022-12-23 10:28] LABS: ANISOCYTOSIS 1+; MACROCYTOSIS 0
[2022-12-23] MEDS: AZITHROMYCIN IVPB 500 MG/250 ML BAG IVPB SCH (13:20)
[2022-12-23] MEDS ORDERED: FUROSEMIDE 40 MG/4 ML INJECTABLE VIAL IVPUSH ONE (14:45)
[2022-12-23] MEDS: TAMSULOSIN HCL 0.4 MG CAP PO SCH (21:10)
[2022-12-23] MEDS: CHLORHEXIDINE GLUCONATE 4% CLEANSER FOR DECOLONIZATION TP SCH (21:13)
[2022-12-24] MEDS: guaiFENesin/D-METHORPHAN HB 10 ML UNIT-DOSE CUPS PO PRN ×2 (01:14→21:10)
[2022-12-24] MEDS: PIPERACILLIN/TAZOB 2.25 GM 2.25 GM in DEXTROSE 5%-WATER - 50 ML IVPB SCH ×4 (02:00→20:36)
[2022-12-24] MEDS: ALBUTEROL SO4 2.5/IPRATROPIUM 0.5 INH SOL 3 ML VIAL.NEB. NEB SCH ×4 (08:20→20:45)
[2022-12-24] MEDS: FUROSEMIDE 40 MG TABLET (FP) PO SCH (10:12)
[2022-12-24] MEDS: metoPROLOL SUCCINATE 25 MG TAB.SR.24H (FP) PO SCH (10:12)
[2022-12-24] MEDS: APIXABAN 2.5 MG TABLET PO SCH ×2 (10:12→21:10)
[2022-12-24] MEDS: AMINO ACIDS/PROTEIN HYDROLYS 30 ML LIQUID.PKT PO SCH ×2 (10:12→18:39)
[2022-12-24] MEDS: MULTIVITAMINS (DAILY MVI) TABLET (FP) PO SCH (10:12)
[2022-12-24] MEDS: ASCORBIC ACID 500 MG TABLET (FP) PO SCH (10:12)
[2022-12-24] MEDS: methylPREDNISolone NA SUCC 40 MG/1 ML VIAL IVPUSH SCH ×2 (10:13→21:10)
[2022-12-24] MEDS: FLUTICASONE/UMECLIDIN/VILANTER(200-62.5-25 TRELEGY ELLIPTA) INAHLER IH SCH (10:19)
[2022-12-24] MEDS: AZITHROMYCIN IVPB 500 MG/250 ML BAG IVPB SCH (14:00)
[2022-12-24] MEDS ORDERED: metoPROLOL SUCCINATE 25 MG TAB.SR.24H (FP) PO ONE (14:45)
[2022-12-24] MEDS: TAMSULOSIN HCL 0.4 MG CAP PO SCH (21:10)
[2022-12-24] MEDS: CHLORHEXIDINE GLUCONATE 4% CLEANSER FOR DECOLONIZATION TP SCH (21:10)
[2022-12-25] MEDS: PIPERACILLIN/TAZOB 2.25 GM 2.25 GM in DEXTROSE 5%-WATER - 50 ML IVPB SCH ×4 (03:54→21:58)
[2022-12-25 06:47] LABS: HEMATOCRIT 36.7 % (35.4-49); HEMOGLOBIN 11.7 GM/dL (11.7-16.9); MCH 28.5 pg (25.7-33.7); MCHC 31.9 g/dl (32.0-35.9); MEAN CELL VOLUME 89.1 fl (80-96); MEAN PLT VOLUME 10.9 fl (7.5-11.1); PLATELET COUNT 77 10^3/uL (134-434); RBC 4.12 M/mm3 (4.00-5.60); RDW 18.3 % (11.9-15.9); WHITE BLOOD COUNT 21.1 K/mm3 (4.0-10.0)
[2022-12-25 07:08] LABS: POTASSIUM 4.4 mmol/L (3.5-5.1)
[2022-12-25 07:11] LABS: CALCIUM 8.4 mg/dL (8.5-10.1)
[2022-12-25 07:12] LABS: ALBUMIN 1.8 g/dl (3.4-5.0); BLOOD UREA NITROGEN 72.7 mg/dL (7-18)
[2022-12-25 07:15] LABS: CREATININE 2.1 mg/dL (0.55-1.3)
[2022-12-25 07:23] LABS: BILIRUBIN,TOTAL 0.7 mg/dL (0.2-1)
[2022-12-25] MEDS: ALBUTEROL SO4 2.5/IPRATROPIUM 0.5 INH SOL 3 ML VIAL.NEB. NEB SCH ×4 (07:50→20:50)
[2022-12-25] MEDS: MULTIVITAMINS (DAILY MVI) TABLET (FP) PO SCH (10:14)
[2022-12-25] MEDS: AMINO ACIDS/PROTEIN HYDROLYS 30 ML LIQUID.PKT PO SCH ×2 (10:14→17:39)
[2022-12-25] MEDS: ASCORBIC ACID 500 MG TABLET (FP) PO SCH (10:14)
[2022-12-25] MEDS: APIXABAN 2.5 MG TABLET PO SCH ×2 (10:14→21:58)
[2022-12-25] MEDS: FUROSEMIDE 40 MG TABLET (FP) PO SCH (10:14)
[2022-12-25] MEDS: methylPREDNISolone NA SUCC 40 MG/1 ML VIAL IVPUSH SCH (10:15)
[2022-12-25] MEDS: FLUTICASONE/UMECLIDIN/VILANTER(200-62.5-25 TRELEGY ELLIPTA) INAHLER IH SCH (10:17)
[2022-12-25] MEDS: AZITHROMYCIN IVPB 500 MG/250 ML BAG IVPB SCH (12:55)
[2022-12-25] MEDS: TAMSULOSIN HCL 0.4 MG CAP PO SCH (21:58)
[2022-12-26] MEDS: PIPERACILLIN/TAZOB 2.25 GM 2.25 GM in DEXTROSE 5%-WATER - 50 ML IVPB SCH ×4 (03:23→21:38)
[2022-12-26] MEDS: AMINO ACIDS/PROTEIN HYDROLYS 30 ML LIQUID.PKT PO SCH ×2 (08:49→17:22)
[2022-12-26] MEDS: MULTIVITAMINS (DAILY MVI) TABLET (FP) PO SCH (09:44)
[2022-12-26] MEDS: APIXABAN 2.5 MG TABLET PO SCH ×2 (09:44→21:38)
[2022-12-26] MEDS: ASCORBIC ACID 500 MG TABLET (FP) PO SCH (09:44)
[2022-12-26] MEDS: methylPREDNISolone NA SUCC 40 MG/1 ML VIAL IVPUSH SCH (09:44)
[2022-12-26] MEDS: FUROSEMIDE 40 MG TABLET (FP) PO SCH (09:44)
[2022-12-26] MEDS: FLUTICASONE/UMECLIDIN/VILANTER(200-62.5-25 TRELEGY ELLIPTA) INAHLER IH SCH (09:45)
[2022-12-26] MEDS: ALBUTEROL SO4 2.5/IPRATROPIUM 0.5 INH SOL 3 ML VIAL.NEB. NEB SCH ×4 (09:50→20:10)
[2022-12-26] MEDS ORDERED: LEVALBUTEROL HCL 0.63 MG/3 ML VIAL.NEB. IH PRN (10:20)
[2022-12-26] MEDS: NYSTATIN 500,000 UNITS/5 ML SUSPENSION PO SCH ×2 (12:57→17:22)
[2022-12-26] MEDS: FUROSEMIDE 40 MG/4 ML INJECTABLE VIAL IVPUSH SCH (12:57)
[2022-12-26] MEDS: AZITHROMYCIN IVPB 500 MG/250 ML BAG IVPB SCH (12:58)
[2022-12-26] MEDS: MAG HYDROX/ALH/SMC/DPHA/LIDO 240 ML MOUTHWASH MM SCH ×2 (17:22)
[2022-12-26] MEDS: TAMSULOSIN HCL 0.4 MG CAP PO SCH (21:38)
[2022-12-26] MEDS: metoPROLOL SUCCINATE 25 MG TAB.SR.24H (FP) PO SCH (21:38)
[2022-12-27] MEDS: NYSTATIN 500,000 UNITS/5 ML SUSPENSION PO SCH ×4 (00:31→17:21)
[2022-12-27] MEDS: PIPERACILLIN/TAZOB 2.25 GM 2.25 GM in DEXTROSE 5%-WATER - 50 ML IVPB SCH ×4 (02:15→21:44)
[2022-12-27] MEDS: MAG HYDROX/ALH/SMC/DPHA/LIDO 240 ML MOUTHWASH MM SCH ×3 (06:11→17:21)
[2022-12-27] MEDS: ALBUTEROL SO4 2.5/IPRATROPIUM 0.5 INH SOL 3 ML VIAL.NEB. NEB SCH ×4 (08:32→20:33)
[2022-12-27] MEDS: APIXABAN 2.5 MG TABLET PO SCH ×2 (09:20→21:47)
[2022-12-27] MEDS: AMINO ACIDS/PROTEIN HYDROLYS 30 ML LIQUID.PKT PO SCH ×2 (09:20→17:22)
[2022-12-27] MEDS: metoPROLOL SUCCINATE 25 MG TAB.SR.24H (FP) PO SCH ×2 (09:20→21:47)
[2022-12-27] MEDS: ASCORBIC ACID 500 MG TABLET (FP) PO SCH (09:25)
[2022-12-27] MEDS: methylPREDNISolone NA SUCC 40 MG/1 ML VIAL IVPUSH SCH (09:25)
[2022-12-27] MEDS: MULTIVITAMINS (DAILY MVI) TABLET (FP) PO SCH (09:25)
[2022-12-27] MEDS: FUROSEMIDE 40 MG/4 ML INJECTABLE VIAL IVPUSH SCH ×3 (09:26→21:47)
[2022-12-27] MEDS: FLUTICASONE/UMECLIDIN/VILANTER(200-62.5-25 TRELEGY ELLIPTA) INAHLER IH SCH (09:26)
[2022-12-27] MEDS: AZITHROMYCIN IVPB 500 MG/250 ML BAG IVPB SCH (12:20)
[2022-12-27] MEDS: TAMSULOSIN HCL 0.4 MG CAP PO SCH (21:47)
[2022-12-28] MEDS: MAG HYDROX/ALH/SMC/DPHA/LIDO 240 ML MOUTHWASH MM SCH ×4 (00:22→17:26)
[2022-12-28] MEDS: NYSTATIN 500,000 UNITS/5 ML SUSPENSION PO SCH ×4 (00:23→17:26)
[2022-12-28] MEDS: PIPERACILLIN/TAZOB 2.25 GM 2.25 GM in DEXTROSE 5%-WATER - 50 ML IVPB SCH ×4 (03:11→21:26)
[2022-12-28] MEDS: ALBUTEROL SO4 2.5/IPRATROPIUM 0.5 INH SOL 3 ML VIAL.NEB. NEB SCH ×4 (08:10→20:15)
[2022-12-28] MEDS: AMINO ACIDS/PROTEIN HYDROLYS 30 ML LIQUID.PKT PO SCH ×2 (08:57→17:28)
[2022-12-28] MEDS: FUROSEMIDE 40 MG/4 ML INJECTABLE VIAL IVPUSH SCH ×2 (09:47→21:26)
[2022-12-28] MEDS: methylPREDNISolone NA SUCC 40 MG/1 ML VIAL IVPUSH SCH (09:48)
[2022-12-28] MEDS: ASCORBIC ACID 500 MG TABLET (FP) PO SCH (09:48)
[2022-12-28] MEDS: MULTIVITAMINS (DAILY MVI) TABLET (FP) PO SCH (09:48)
[2022-12-28] MEDS: APIXABAN 2.5 MG TABLET PO SCH (09:48)
[2022-12-28] MEDS: FLUTICASONE/UMECLIDIN/VILANTER(200-62.5-25 TRELEGY ELLIPTA) INAHLER IH SCH (09:49)
[2022-12-28] MEDS: metoPROLOL SUCCINATE 25 MG TAB.SR.24H (FP) PO SCH ×2 (11:57→21:26)
[2022-12-28 13:24] LABS: HEMOGLOBIN 11.6 GM/dL (11.7-16.9); MCH 29.7 pg (25.7-33.7); MCHC 34.3 g/dl (32.0-35.9); MEAN CELL VOLUME 86.7 fl (80-96); MEAN PLT VOLUME 10.7 fl (7.5-11.1); PLATELET COUNT 86 10^3/uL (134-434); RBC 3.92 M/mm3 (4.00-5.60); RDW 17.5 % (11.9-15.9); WHITE BLOOD COUNT 21.5 K/mm3 (4.0-10.0)
[2022-12-28] MEDS: AZITHROMYCIN IVPB 500 MG/250 ML BAG IVPB SCH (13:31)
[2022-12-28 13:41] LABS: POTASSIUM 4.3 mmol/L (3.5-5.1)
[2022-12-28 13:45] LABS: CALCIUM 8.1 mg/dL (8.5-10.1)
[2022-12-28 13:46] LABS: BLOOD UREA NITROGEN 92.8 mg/dL (7-18)
[2022-12-28 13:48] LABS: EPI CELLS 2 /uL (0-25.1); HYALINE CASTS 1 /uL (0-3.1); URINE APPEARANCE CLOUDY; URINE BACTERIA 3 /uL (0-1359); URINE BILIRUBIN NEGATIVE (NEGATIVE); URINE COLOR YELLOW; URINE GLUCOSE (UA) NEGATIVE (NEGATIVE); URINE KETONE NEGATIVE (NEGATIVE); URINE LEUK ESTERASE TRACE (NEGATIVE); URINE NITRITE NEGATIVE (NEGATIVE); URINE PROTEIN 1+ (NEGATIVE); URINE RBC 29 /uL (0-23.9); URINE UROBILINOGEN 0.2 mg/dL (0.2-1.0); URINE WBC 22 /uL (0-25.8)
[2022-12-28 13:49] LABS: CREATININE 2.3 mg/dL (0.55-1.3)
[2022-12-28 13:50] LABS: BILIRUBIN,TOTAL 0.8 mg/dL (0.2-1); TOT PROT 5.2 g/dl (6.4-8.2)
[2022-12-28] MEDS: TAMSULOSIN HCL 0.4 MG CAP PO SCH (21:26)
[2022-12-29] MEDS: NYSTATIN 500,000 UNITS/5 ML SUSPENSION PO SCH ×4 (01:13→18:10)
[2022-12-29] MEDS: MAG HYDROX/ALH/SMC/DPHA/LIDO 240 ML MOUTHWASH MM SCH ×4 (01:13→18:10)
[2022-12-29] MEDS: PIPERACILLIN/TAZOB 2.25 GM 2.25 GM in DEXTROSE 5%-WATER - 50 ML IVPB SCH ×2 (02:40→10:09)
[2022-12-29 08:15] LABS: HEMATOCRIT 34.3 % (35.4-49); MCH 28.5 pg (25.7-33.7); MEAN PLT VOLUME 11.3 fl (7.5-11.1); PLATELET COUNT 99 10^3/uL (134-434); RBC 3.85 M/mm3 (4.00-5.60); RDW 17.8 % (11.9-15.9); WHITE BLOOD COUNT 20.2 K/mm3 (4.0-10.0)
[2022-12-29] MEDS: ALBUTEROL SO4 2.5/IPRATROPIUM 0.5 INH SOL 3 ML VIAL.NEB. NEB SCH ×4 (08:25→20:15)
[2022-12-29 08:35] LABS: POTASSIUM 4.3 mmol/L (3.5-5.1)
[2022-12-29 08:38] LABS: BLOOD UREA NITROGEN 94.2 mg/dL (7-18)
[2022-12-29 08:39] LABS: CALCIUM 8.2 mg/dL (8.5-10.1)
[2022-12-29 08:40] LABS: CREATININE 2.2 mg/dL (0.55-1.3)
[2022-12-29] MEDS: AMINO ACIDS/PROTEIN HYDROLYS 30 ML LIQUID.PKT PO SCH ×2 (10:08→18:10)
[2022-12-29] MEDS: ASCORBIC ACID 500 MG TABLET (FP) PO SCH (10:10)
[2022-12-29] MEDS: MULTIVITAMINS (DAILY MVI) TABLET (FP) PO SCH (10:10)
[2022-12-29] MEDS: FUROSEMIDE 40 MG/4 ML INJECTABLE VIAL IVPUSH SCH ×2 (10:10→13:29)
[2022-12-29] MEDS: methylPREDNISolone NA SUCC 40 MG/1 ML VIAL IVPUSH SCH (10:10)
[2022-12-29] MEDS: metoPROLOL SUCCINATE 25 MG TAB.SR.24H (FP) PO SCH ×2 (10:11→22:06)
[2022-12-29] MEDS: FLUTICASONE/UMECLIDIN/VILANTER(200-62.5-25 TRELEGY ELLIPTA) INAHLER IH SCH (10:11)
[2022-12-29] MEDS: TAMSULOSIN HCL 0.4 MG CAP PO SCH (22:06)
[2022-12-29] MEDS: APIXABAN 2.5 MG TABLET PO SCH (22:06)
[2022-12-30] MEDS: NYSTATIN 500,000 UNITS/5 ML SUSPENSION PO SCH ×4 (00:30→17:52)
[2022-12-30] MEDS: MAG HYDROX/ALH/SMC/DPHA/LIDO 240 ML MOUTHWASH MM SCH ×4 (01:00→17:52)
[2022-12-30] MEDS: FUROSEMIDE 40 MG/4 ML INJECTABLE VIAL IVPUSH SCH ×2 (06:35→13:17)
[2022-12-30] MEDS: ALBUTEROL SO4 2.5/IPRATROPIUM 0.5 INH SOL 3 ML VIAL.NEB. NEB SCH ×4 (07:30→20:27)
[2022-12-30 07:50] LABS: POTASSIUM 4.7 mmol/L (3.5-5.1)
[2022-12-30 07:55] LABS: CALCIUM 8.2 mg/dL (8.5-10.1)
[2022-12-30 07:56] LABS: BLOOD UREA NITROGEN 99.4 mg/dL (7-18)
[2022-12-30 07:59] LABS: CREATININE 2.2 mg/dL (0.55-1.3)
[2022-12-30] MEDS: metoPROLOL SUCCINATE 25 MG TAB.SR.24H (FP) PO SCH ×2 (09:50→21:37)
[2022-12-30] MEDS: MULTIVITAMINS (DAILY MVI) TABLET (FP) PO SCH (09:50)
[2022-12-30] MEDS: predniSONE 10 MG TABLET (UD) PO SCH (09:51)
[2022-12-30] MEDS: APIXABAN 2.5 MG TABLET PO SCH ×2 (09:51→21:37)
[2022-12-30] MEDS: AMINO ACIDS/PROTEIN HYDROLYS 30 ML LIQUID.PKT PO SCH ×2 (09:51→17:51)
[2022-12-30] MEDS: ASCORBIC ACID 500 MG TABLET (FP) PO SCH (09:51)
[2022-12-30] MEDS: FLUTICASONE/UMECLIDIN/VILANTER(200-62.5-25 TRELEGY ELLIPTA) INAHLER IH SCH (09:51)
[2022-12-30] MEDS ORDERED: predniSONE 20 MG TABLET (UD) PO SCH (10:00)
[2022-12-30] MEDS: TAMSULOSIN HCL 0.4 MG CAP PO SCH (21:37)
[2022-12-31] MEDS: NYSTATIN 500,000 UNITS/5 ML SUSPENSION PO SCH ×5 (00:29→23:56)
[2022-12-31] MEDS: MAG HYDROX/ALH/SMC/DPHA/LIDO 240 ML MOUTHWASH MM SCH ×5 (00:29→23:56)
[2022-12-31] MEDS: FUROSEMIDE 40 MG/4 ML INJECTABLE VIAL IVPUSH SCH ×2 (05:59→14:35)
[2022-12-31] MEDS: ALBUTEROL SO4 2.5/IPRATROPIUM 0.5 INH SOL 3 ML VIAL.NEB. NEB SCH (07:30)
[2022-12-31] MEDS: AMINO ACIDS/PROTEIN HYDROLYS 30 ML LIQUID.PKT PO SCH ×2 (08:16→17:09)
[2022-12-31 08:32] LABS: HEMATOCRIT 35.7 % (35.4-49); HEMOGLOBIN 11.4 GM/dL (11.7-16.9); MCH 28.5 pg (25.7-33.7); MCHC 31.9 g/dl (32.0-35.9); MEAN CELL VOLUME 89.3 fl (80-96); MEAN PLT VOLUME 9.8 fl (7.5-11.1); PLATELET COUNT 127 10^3/uL (134-434); RBC 3.99 M/mm3 (4.00-5.60); RDW 17.7 % (11.9-15.9); WHITE BLOOD COUNT 13.6 K/mm3 (4.0-10.0)
[2022-12-31 08:52] LABS: CHLORIDE 104 mmol/L (98-107); POTASSIUM 4.1 mmol/L (3.5-5.1); SODIUM 144 mmol/L (136-145)
[2022-12-31 08:56] LABS: CALCIUM 8.7 mg/dL (8.5-10.1)
[2022-12-31 08:57] LABS: ANION GAP 8 mmol/L (4-13); CO2 32 mmol/L (21-32); GLUCOSE,RANDOM 122 mg/dL (74-106)
[2022-12-31] MEDS: MULTIVITAMINS (DAILY MVI) TABLET (FP) PO SCH (09:09)
[2022-12-31] MEDS: ASCORBIC ACID 500 MG TABLET (FP) PO SCH (09:09)
[2022-12-31] MEDS: metoPROLOL SUCCINATE 25 MG TAB.SR.24H (FP) PO SCH ×2 (09:09→21:16)
[2022-12-31] MEDS: APIXABAN 2.5 MG TABLET PO SCH ×2 (09:09→21:17)
[2022-12-31] MEDS: FLUTICASONE/UMECLIDIN/VILANTER(200-62.5-25 TRELEGY ELLIPTA) INAHLER IH SCH (09:10)
[2022-12-31] MEDS: predniSONE 10 MG TABLET (UD) PO SCH (09:10)
[2022-12-31] MEDS: guaiFENesin/D-METHORPHAN HB 10 ML UNIT-DOSE CUPS PO PRN (09:17)
[2022-12-31] MEDS ORDERED: METOLAZONE 5 MG TABLET PO ONE (13:30)
[2022-12-31] MEDS: TAMSULOSIN HCL 0.4 MG CAP PO SCH (21:17)
[2023-01-01] MEDS: NYSTATIN 500,000 UNITS/5 ML SUSPENSION PO SCH ×3 (06:04→18:02)
[2023-01-01] MEDS: MAG HYDROX/ALH/SMC/DPHA/LIDO 240 ML MOUTHWASH MM SCH ×3 (06:04→18:02)
[2023-01-01] MEDS: FUROSEMIDE 40 MG/4 ML INJECTABLE VIAL IVPUSH SCH ×2 (06:05→15:02)
[2023-01-01 07:48] LABS: HEMATOCRIT 34.6 % (35.4-49); HEMOGLOBIN 11.2 GM/dL (11.7-16.9); MCH 28.9 pg (25.7-33.7); MCHC 32.4 g/dl (32.0-35.9); MEAN CELL VOLUME 89.3 fl (80-96); MEAN PLT VOLUME 9.9 fl (7.5-11.1); PLATELET COUNT 139 10^3/uL (134-434); RBC 3.87 M/mm3 (4.00-5.60); RDW 17.7 % (11.9-15.9)
[2023-01-01 08:10] LABS: CHLORIDE 102 mmol/L (98-107); POTASSIUM 4.1 mmol/L (3.5-5.1); SODIUM 144 mmol/L (136-145)
[2023-01-01 08:14] LABS: ANION GAP 7 mmol/L (4-13); CO2 34 mmol/L (21-32); GLUCOSE,RANDOM 121 mg/dL (74-106)
[2023-01-01 08:15] LABS: CALCIUM 8.4 mg/dL (8.5-10.1); MAGNESIUM 2.5 mg/dL (1.8-2.4)
[2023-01-01 08:17] LABS: CREATININE 1.8 mg/dL (0.55-1.3); PHOSPHOROUS 5.2 mg/dL (2.5-4.9)
[2023-01-01 08:32] LABS: BLOOD UREA NITROGEN 105.5 mg/dL (7-18)
[2023-01-01] MEDS: FLUTICASONE/UMECLIDIN/VILANTER(200-62.5-25 TRELEGY ELLIPTA) INAHLER IH SCH (09:39)
[2023-01-01] MEDS: APIXABAN 2.5 MG TABLET PO SCH ×2 (09:40→22:20)
[2023-01-01] MEDS: AMINO ACIDS/PROTEIN HYDROLYS 30 ML LIQUID.PKT PO SCH ×2 (09:40→18:02)
[2023-01-01] MEDS: metoPROLOL SUCCINATE 25 MG TAB.SR.24H (FP) PO SCH ×2 (09:40→22:20)
[2023-01-01] MEDS: ASCORBIC ACID 500 MG TABLET (FP) PO SCH (09:40)
[2023-01-01] MEDS: MULTIVITAMINS (DAILY MVI) TABLET (FP) PO SCH (09:40)
[2023-01-01] MEDS ORDERED: predniSONE 10 MG TABLET (UD) PO SCH (10:00)
[2023-01-01] MEDS ORDERED: METOLAZONE 5 MG TABLET PO ONE (13:30)
[2023-01-01] MEDS ORDERED: FUROSEMIDE 40 MG/4 ML INJECTABLE VIAL IVPUSH SCH (14:00)
[2023-01-01] MEDS ORDERED: BENZOCAINE/MENTH/CETYLPYRD CL 1 EACH LOZENGE MM PRN (14:12)
[2023-01-01] MEDS: guaiFENesin/D-METHORPHAN HB 10 ML UNIT-DOSE CUPS PO PRN (22:20)
[2023-01-01] MEDS: TAMSULOSIN HCL 0.4 MG CAP PO SCH (22:20)
[2023-01-02] MEDS: NYSTATIN 500,000 UNITS/5 ML SUSPENSION PO SCH ×4 (01:14→18:01)
[2023-01-02] MEDS: MAG HYDROX/ALH/SMC/DPHA/LIDO 240 ML MOUTHWASH MM SCH ×4 (01:14→18:01)
[2023-01-02] MEDS: FUROSEMIDE 40 MG/4 ML INJECTABLE VIAL IVPUSH SCH ×2 (05:49→14:16)
[2023-01-02 07:32] LABS: HEMATOCRIT 33.7 % (35.4-49); HEMOGLOBIN 10.9 GM/dL (11.7-16.9); MCH 28.8 pg (25.7-33.7); MCHC 32.3 g/dl (32.0-35.9); MEAN CELL VOLUME 89.1 fl (80-96); MEAN PLT VOLUME 9.4 fl (7.5-11.1); PLATELET COUNT 154 10^3/uL (134-434); RBC 3.78 M/mm3 (4.00-5.60); RDW 17.4 % (11.9-15.9); WHITE BLOOD COUNT 7.6 K/mm3 (4.0-10.0)
[2023-01-02 07:59] LABS: CHLORIDE 98 mmol/L (98-107); POTASSIUM 3.5 mmol/L (3.5-5.1); SODIUM 142 mmol/L (136-145)
[2023-01-02 08:03] LABS: CALCIUM 8.5 mg/dL (8.5-10.1)
[2023-01-02 08:04] LABS: ALBUMIN 2.2 g/dl (3.4-5.0); ANION GAP 6 mmol/L (4-13); CO2 38 mmol/L (21-32); GLUCOSE,RANDOM 130 mg/dL (74-106)
[2023-01-02 08:07] LABS: SGPT/ALT 60 U/L (13-61)
[2023-01-02 08:08] LABS: SGOT/AST 25 U/L (15-37)
[2023-01-02 08:09] LABS: TOT PROT 5.2 g/dl (6.4-8.2)
[2023-01-02 08:10] LABS: ALK PHOS 93 U/L (45-117)
[2023-01-02 08:13] LABS: BLOOD UREA NITROGEN 107.9 mg/dL (7-18)
[2023-01-02] MEDS: AMINO ACIDS/PROTEIN HYDROLYS 30 ML LIQUID.PKT PO SCH ×2 (08:31→18:01)
[2023-01-02] MEDS ORDERED: predniSONE 20 MG TABLET (UD) PO SCH (10:00)
[2023-01-02] MEDS ORDERED: METOLAZONE 5 MG TABLET PO ONE (10:00)
[2023-01-02] MEDS: APIXABAN 2.5 MG TABLET PO SCH ×2 (10:09→21:34)
[2023-01-02] MEDS: metoPROLOL SUCCINATE 25 MG TAB.SR.24H (FP) PO SCH ×2 (10:12→21:33)
[2023-01-02] MEDS: ASCORBIC ACID 500 MG TABLET (FP) PO SCH (10:12)
[2023-01-02] MEDS: MULTIVITAMINS (DAILY MVI) TABLET (FP) PO SCH (10:12)
[2023-01-02] MEDS: FLUTICASONE/UMECLIDIN/VILANTER(200-62.5-25 TRELEGY ELLIPTA) INAHLER IH SCH (10:20)
[2023-01-02 14:22] LABS: HIV INTERPRETATION NEGATIVE (NEGATIVE)
[2023-01-02] MEDS: TAMSULOSIN HCL 0.4 MG CAP PO SCH (21:34)
[2023-01-02] MEDS: valACYclovir HCL 500 MG TABLET (FP) PO SCH (21:34)
[2023-01-03] MEDS: NYSTATIN 500,000 UNITS/5 ML SUSPENSION PO SCH ×4 (00:05→17:07)
[2023-01-03] MEDS: MAG HYDROX/ALH/SMC/DPHA/LIDO 240 ML MOUTHWASH MM SCH ×4 (01:14→17:07)
[2023-01-03] MEDS: FUROSEMIDE 40 MG/4 ML INJECTABLE VIAL IVPUSH SCH ×2 (05:50→14:45)
[2023-01-03] MEDS: metoPROLOL SUCCINATE 25 MG TAB.SR.24H (FP) PO SCH ×2 (09:45→21:26)
[2023-01-03] MEDS: AMINO ACIDS/PROTEIN HYDROLYS 30 ML LIQUID.PKT PO SCH ×2 (09:45→17:07)
[2023-01-03] MEDS: valACYclovir HCL 500 MG TABLET (FP) PO SCH ×2 (09:46→21:26)
[2023-01-03] MEDS: MULTIVITAMINS (DAILY MVI) TABLET (FP) PO SCH (09:46)
[2023-01-03] MEDS: ASCORBIC ACID 500 MG TABLET (FP) PO SCH (09:46)
[2023-01-03] MEDS: APIXABAN 2.5 MG TABLET PO SCH ×2 (09:46→21:26)
[2023-01-03] MEDS: FLUTICASONE/UMECLIDIN/VILANTER(200-62.5-25 TRELEGY ELLIPTA) INAHLER IH SCH (09:47)
[2023-01-03] MEDS ORDERED: predniSONE 10 MG TABLET (UD) PO SCH (10:00)
[2023-01-03 12:51] LABS: BASO % 0.1 % (0-2.0); EOS % 1.9 % (0-4.5); HEMATOCRIT 33.2 % (35.4-49); HEMOGLOBIN 11.3 GM/dL (11.7-16.9); LYMPH % 6.4 % (8-40); MCH 29.6 pg (25.7-33.7); MCHC 33.9 g/dl (32.0-35.9); MEAN CELL VOLUME 87.3 fl (80-96); MEAN PLT VOLUME 9.5 fl (7.5-11.1); MONO % 2.3 % (3.8-10.2); NEUT % 89.3 % (42.8-82.8); PLATELET COUNT 157 10^3/uL (134-434); RDW 17.8 % (11.9-15.9); WHITE BLOOD COUNT 6.2 K/mm3 (4.0-10.0)
[2023-01-03 13:25] LABS: CHLORIDE 91 mmol/L (98-107); POTASSIUM 3.2 mmol/L (3.5-5.1); SODIUM 139 mmol/L (136-145)
[2023-01-03 13:27] LABS: ALBUMIN 2.3 g/dl (3.4-5.0); ANION GAP 8 mmol/L (4-13); CALCIUM 8.8 mg/dL (8.5-10.1); CO2 41 mmol/L (21-32); GLUCOSE,RANDOM 138 mg/dL (74-106)
[2023-01-03] MEDS ORDERED: METOLAZONE 5 MG TABLET PO ONE (13:30)
[2023-01-03 13:31] LABS: CREATININE 2.2 mg/dL (0.55-1.3); SGOT/AST 27 U/L (15-37); SGPT/ALT 59 U/L (13-61)
[2023-01-03 13:32] LABS: TOT PROT 5.3 g/dl (6.4-8.2)
[2023-01-03 13:33] LABS: ALK PHOS 103 U/L (45-117)
[2023-01-03 13:35] LABS: BLOOD UREA NITROGEN 112.9 mg/dL (7-18)
[2023-01-03] MEDS: TAMSULOSIN HCL 0.4 MG CAP PO SCH (21:26)
[2023-01-04] MEDS: MAG HYDROX/ALH/SMC/DPHA/LIDO 240 ML MOUTHWASH MM SCH ×4 (00:05→17:09)
[2023-01-04] MEDS: NYSTATIN 500,000 UNITS/5 ML SUSPENSION PO SCH ×4 (00:06→17:09)
[2023-01-04] MEDS: FUROSEMIDE 40 MG/4 ML INJECTABLE VIAL IVPUSH SCH ×2 (05:51→14:52)
[2023-01-04] MEDS: AMINO ACIDS/PROTEIN HYDROLYS 30 ML LIQUID.PKT PO SCH ×2 (08:57→17:08)
[2023-01-04] MEDS: ASCORBIC ACID 500 MG TABLET (FP) PO SCH (09:57)
[2023-01-04] MEDS: valACYclovir HCL 500 MG TABLET (FP) PO SCH ×2 (09:57→22:41)
[2023-01-04] MEDS: APIXABAN 2.5 MG TABLET PO SCH ×2 (09:57→22:40)
[2023-01-04] MEDS: metoPROLOL SUCCINATE 25 MG TAB.SR.24H (FP) PO SCH ×2 (09:57→22:41)
[2023-01-04] MEDS: MULTIVITAMINS (DAILY MVI) TABLET (FP) PO SCH (09:57)
[2023-01-04] MEDS: FLUTICASONE/UMECLIDIN/VILANTER(200-62.5-25 TRELEGY ELLIPTA) INAHLER IH SCH (10:28)
[2023-01-04 14:06] LABS: CMV IgM < 30.0 AU/mL (0.0-29.9)
[2023-01-04] MEDS: TAMSULOSIN HCL 0.4 MG CAP PO SCH (22:41)
[2023-01-05] MEDS: NYSTATIN 500,000 UNITS/5 ML SUSPENSION PO SCH ×5 (00:38→23:02)
[2023-01-05] MEDS: FUROSEMIDE 40 MG/4 ML INJECTABLE VIAL IVPUSH SCH ×2 (06:39→14:37)
[2023-01-05] MEDS: MAG HYDROX/ALH/SMC/DPHA/LIDO 240 ML MOUTHWASH MM SCH ×4 (06:39→18:23)
[2023-01-05 07:17] LABS: HEMATOCRIT 32.4 % (35.4-49); HEMOGLOBIN 10.8 GM/dL (11.7-16.9); MCH 29.2 pg (25.7-33.7); MCHC 33.3 g/dl (32.0-35.9); MEAN CELL VOLUME 87.7 fl (80-96); MEAN PLT VOLUME 9.7 fl (7.5-11.1); PLATELET COUNT 161 10^3/uL (134-434); RBC 3.69 M/mm3 (4.00-5.60); RDW 17.6 % (11.9-15.9); WHITE BLOOD COUNT 5.2 K/mm3 (4.0-10.0)
[2023-01-05 07:59] LABS: CHLORIDE 90 mmol/L (98-107); SODIUM 140 mmol/L (136-145)
[2023-01-05] MEDS: AMINO ACIDS/PROTEIN HYDROLYS 30 ML LIQUID.PKT PO SCH ×2 (08:02→18:23)
[2023-01-05 08:10] LABS: ALBUMIN 2.2 g/dl (3.4-5.0); CALCIUM 8.6 mg/dL (8.5-10.1); CO2 42 mmol/L (21-32); GLUCOSE,RANDOM 131 mg/dL (74-106)
[2023-01-05 08:13] LABS: BILIRUBIN,TOTAL 1.1 mg/dL (0.2-1); CREATININE 2.4 mg/dL (0.55-1.3); SGOT/AST 30 U/L (15-37); TOT PROT 5.2 g/dl (6.4-8.2)
[2023-01-05 08:14] LABS: ALK PHOS 100 U/L (45-117); SGPT/ALT 53 U/L (13-61)
[2023-01-05 08:23] LABS: ANION GAP 8 mmol/L (4-13); POTASSIUM 2.7 mmol/L (3.5-5.1)
[2023-01-05] MEDS ORDERED: POTASSIUM CHLORIDE ORAL LIQUID 20 MEQ/15 ML PO ONE (09:30)
[2023-01-05] MEDS: valACYclovir HCL 500 MG TABLET (FP) PO SCH ×2 (10:02→23:02)
[2023-01-05] MEDS: metoPROLOL SUCCINATE 25 MG TAB.SR.24H (FP) PO SCH ×2 (10:02→23:02)
[2023-01-05] MEDS: KCL 10 MEQ IVPB 10 MEQ/100 ML INFUS.BAG IVPB SCH ×5 (10:02→12:37)
[2023-01-05] MEDS: MULTIVITAMINS (DAILY MVI) TABLET (FP) PO SCH (10:03)
[2023-01-05] MEDS: APIXABAN 2.5 MG TABLET PO SCH ×2 (10:03→23:02)
[2023-01-05] MEDS: ASCORBIC ACID 500 MG TABLET (FP) PO SCH (10:03)
[2023-01-05] MEDS: FLUTICASONE/UMECLIDIN/VILANTER(200-62.5-25 TRELEGY ELLIPTA) INAHLER IH SCH (10:05)
[2023-01-05] MEDS: TAMSULOSIN HCL 0.4 MG CAP PO SCH (23:02)
[2023-01-06] MEDS: FUROSEMIDE 40 MG/4 ML INJECTABLE VIAL IVPUSH SCH ×2 (06:38→13:35)
[2023-01-06] MEDS: NYSTATIN 500,000 UNITS/5 ML SUSPENSION PO SCH ×4 (06:38→23:33)
[2023-01-06 07:28] LABS: HEMATOCRIT 29.8 % (35.4-49); HEMOGLOBIN 9.8 GM/dL (11.7-16.9); MCH 28.9 pg (25.7-33.7); MEAN CELL VOLUME 87.6 fl (80-96); MEAN PLT VOLUME 9.1 fl (7.5-11.1); PLATELET COUNT 160 10^3/uL (134-434); RDW 17.4 % (11.9-15.9); WHITE BLOOD COUNT 5.2 K/mm3 (4.0-10.0)
[2023-01-06 07:59] LABS: CHLORIDE 88 mmol/L (98-107); SODIUM 139 mmol/L (136-145)
[2023-01-06] MEDS: AMINO ACIDS/PROTEIN HYDROLYS 30 ML LIQUID.PKT PO SCH ×2 (07:59→18:31)
[2023-01-06] MEDS ORDERED: POTASSIUM CHLORIDE ORAL LIQUID 20 MEQ/15 ML PO ONE (08:00)
[2023-01-06 08:03] LABS: CALCIUM 8.3 mg/dL (8.5-10.1)
[2023-01-06 08:04] LABS: GLUCOSE,RANDOM 131 mg/dL (74-106)
[2023-01-06 08:07] LABS: CREATININE 2.2 mg/dL (0.55-1.3); SGOT/AST 28 U/L (15-37); SGPT/ALT 54 U/L (13-61)
[2023-01-06 08:09] LABS: ALK PHOS 97 U/L (45-117); TOT PROT 4.9 g/dl (6.4-8.2)
[2023-01-06 08:11] LABS: BILIRUBIN,TOTAL 0.9 mg/dL (0.2-1)
[2023-01-06 08:12] LABS: ANION GAP 5 mmol/L (4-13); BLOOD UREA NITROGEN 118.2 mg/dL (7-18); CO2 > 45 mmol/L (21-32); POTASSIUM 2.7 mmol/L (3.5-5.1)
[2023-01-06 09:24] LABS: MAGNESIUM 2.3 mg/dL (1.8-2.4)
[2023-01-06 09:26] LABS: PHOSPHOROUS 4.4 mg/dL (2.5-4.9)
[2023-01-06] MEDS: MULTIVITAMINS (DAILY MVI) TABLET (FP) PO SCH (09:31)
[2023-01-06] MEDS: metoPROLOL SUCCINATE 25 MG TAB.SR.24H (FP) PO SCH ×2 (09:31→22:20)
[2023-01-06] MEDS: valACYclovir HCL 500 MG TABLET (FP) PO SCH ×2 (09:31→22:20)
[2023-01-06] MEDS: ASCORBIC ACID 500 MG TABLET (FP) PO SCH (09:31)
[2023-01-06] MEDS: APIXABAN 2.5 MG TABLET PO SCH ×2 (09:32→22:20)
[2023-01-06] MEDS: KCL 10 MEQ IVPB 10 MEQ/100 ML INFUS.BAG IVPB SCH ×3 (09:44→12:02)
[2023-01-06] MEDS: FLUTICASONE/UMECLIDIN/VILANTER(200-62.5-25 TRELEGY ELLIPTA) INAHLER IH SCH (11:10)
[2023-01-06] MEDS ORDERED: LEVALBUTEROL HCL 0.63 MG/3 ML VIAL.NEB. IH SCH (13:47)
[2023-01-06] MEDS: LEVALBUTEROL HCL 0.63 MG/3 ML VIAL.NEB. IH SCH (20:46)
[2023-01-06] MEDS: TAMSULOSIN HCL 0.4 MG CAP PO SCH (22:20)
[2023-01-07] MEDS: FUROSEMIDE 40 MG/4 ML INJECTABLE VIAL IVPUSH SCH ×2 (06:42→14:27)
[2023-01-07] MEDS: NYSTATIN 500,000 UNITS/5 ML SUSPENSION PO SCH ×4 (06:42→23:30)
[2023-01-07 07:41] LABS: HEMATOCRIT 27.9 % (35.4-49); HEMOGLOBIN 9.3 GM/dL (11.7-16.9); MCH 29.4 pg (25.7-33.7); MCHC 33.2 g/dl (32.0-35.9); MEAN CELL VOLUME 88.7 fl (80-96); MEAN PLT VOLUME 9.2 fl (7.5-11.1); PLATELET COUNT 146 10^3/uL (134-434); RBC 3.15 M/mm3 (4.00-5.60); RDW 17.8 % (11.9-15.9); WHITE BLOOD COUNT 5.1 K/mm3 (4.0-10.0)
[2023-01-07 07:56] LABS: CHLORIDE 88 mmol/L (98-107); SODIUM 138 mmol/L (136-145)
[2023-01-07 07:58] LABS: ALBUMIN 1.9 g/dl (3.4-5.0); CALCIUM 7.8 mg/dL (8.5-10.1); CO2 44 mmol/L (21-32)
[2023-01-07 07:59] LABS: GLUCOSE,RANDOM 120 mg/dL (74-106)
[2023-01-07 08:01] LABS: CREATININE 2.1 mg/dL (0.55-1.3); SGOT/AST 29 U/L (15-37)
[2023-01-07 08:02] LABS: SGPT/ALT 52 U/L (13-61)
[2023-01-07 08:03] LABS: BILIRUBIN,TOTAL 0.9 mg/dL (0.2-1); TOT PROT 4.8 g/dl (6.4-8.2)
[2023-01-07 08:05] LABS: ALK PHOS 93 U/L (45-117)
[2023-01-07 08:06] LABS: ANION GAP 5 mmol/L (4-13); POTASSIUM 2.8 mmol/L (3.5-5.1)
[2023-01-07] MEDS: LEVALBUTEROL HCL 0.63 MG/3 ML VIAL.NEB. IH SCH ×3 (08:19→20:02)
[2023-01-07] MEDS: AMINO ACIDS/PROTEIN HYDROLYS 30 ML LIQUID.PKT PO SCH ×2 (08:38→17:15)
[2023-01-07] MEDS: valACYclovir HCL 500 MG TABLET (FP) PO SCH ×2 (09:37→21:37)
[2023-01-07] MEDS: metoPROLOL SUCCINATE 25 MG TAB.SR.24H (FP) PO SCH ×2 (09:37→21:36)
[2023-01-07] MEDS: ASCORBIC ACID 500 MG TABLET (FP) PO SCH (09:38)
[2023-01-07] MEDS: POTASSIUM CHLORIDE TABS 20 MEQ TABLET.ER (FP) PO SCH ×2 (09:38→21:37)
[2023-01-07] MEDS: APIXABAN 2.5 MG TABLET PO SCH ×2 (09:38→21:36)
[2023-01-07] MEDS: MULTIVITAMINS (DAILY MVI) TABLET (FP) PO SCH (09:38)
[2023-01-07] MEDS: FLUTICASONE/UMECLIDIN/VILANTER(200-62.5-25 TRELEGY ELLIPTA) INAHLER IH SCH (09:39)
[2023-01-07] MEDS: KCL 10 MEQ IVPB 10 MEQ/100 ML INFUS.BAG IVPB SCH ×3 (09:40→13:11)
[2023-01-07] MEDS: BACITRACIN ZINC 15 GM TUBE TOPICAL OINTMENT TP SCH (13:28)
[2023-01-07] MEDS: TAMSULOSIN HCL 0.4 MG CAP PO SCH (21:36)
[2023-01-08] MEDS: FUROSEMIDE 40 MG/4 ML INJECTABLE VIAL IVPUSH SCH (06:27)
[2023-01-08] MEDS: NYSTATIN 500,000 UNITS/5 ML SUSPENSION PO SCH ×3 (06:28→17:34)
[2023-01-08] MEDS: LEVALBUTEROL HCL 0.63 MG/3 ML VIAL.NEB. IH SCH ×3 (07:46→20:48)
[2023-01-08 07:52] LABS: HEMATOCRIT 27.9 % (35.4-49); HEMOGLOBIN 9.2 GM/dL (11.7-16.9); MCH 29.3 pg (25.7-33.7); MEAN CELL VOLUME 88.6 fl (80-96); PLATELET COUNT 158 10^3/uL (134-434); RBC 3.14 M/mm3 (4.00-5.60); RDW 17.5 % (11.9-15.9); WHITE BLOOD COUNT 5.7 K/mm3 (4.0-10.0)
[2023-01-08 08:17] LABS: CHLORIDE 89 mmol/L (98-107); POTASSIUM 3.3 mmol/L (3.5-5.1); SODIUM 139 mmol/L (136-145)
[2023-01-08 08:21] LABS: CALCIUM 7.9 mg/dL (8.5-10.1)
[2023-01-08 08:22] LABS: GLUCOSE,RANDOM 120 mg/dL (74-106)
[2023-01-08 08:25] LABS: CREATININE 2.2 mg/dL (0.55-1.3); SGOT/AST 31 U/L (15-37); SGPT/ALT 54 U/L (13-61)
[2023-01-08 08:26] LABS: TOT PROT 5.1 g/dl (6.4-8.2)
[2023-01-08 08:28] LABS: ALK PHOS 103 U/L (45-117); BILIRUBIN,TOTAL 0.9 mg/dL (0.2-1)
[2023-01-08 08:29] LABS: ANION GAP 5 mmol/L (4-13); BLOOD UREA NITROGEN 121.5 mg/dL (7-18); CO2 > 45 mmol/L (21-32)
[2023-01-08] MEDS: AMINO ACIDS/PROTEIN HYDROLYS 30 ML LIQUID.PKT PO SCH ×2 (09:26→16:33)
[2023-01-08] MEDS: POTASSIUM CHLORIDE TABS 20 MEQ TABLET.ER (FP) PO SCH ×2 (11:27→21:28)
[2023-01-08] MEDS: valACYclovir HCL 500 MG TABLET (FP) PO SCH ×2 (11:27→21:29)
[2023-01-08] MEDS: metoPROLOL SUCCINATE 25 MG TAB.SR.24H (FP) PO SCH ×2 (11:27→21:28)
[2023-01-08] MEDS: APIXABAN 2.5 MG TABLET PO SCH ×2 (11:28→21:29)
[2023-01-08] MEDS: ASCORBIC ACID 500 MG TABLET (FP) PO SCH (11:28)
[2023-01-08] MEDS: MULTIVITAMINS (DAILY MVI) TABLET (FP) PO SCH (11:28)
[2023-01-08] MEDS: FLUTICASONE/UMECLIDIN/VILANTER(200-62.5-25 TRELEGY ELLIPTA) INAHLER IH SCH (11:29)
[2023-01-08] MEDS: BACITRACIN ZINC 15 GM TUBE TOPICAL OINTMENT TP SCH (11:29)
[2023-01-08] MEDS: TAMSULOSIN HCL 0.4 MG CAP PO SCH (21:28)
[2023-01-09] MEDS: NYSTATIN 500,000 UNITS/5 ML SUSPENSION PO SCH ×5 (00:06→23:18)
[2023-01-09] MEDS: LEVALBUTEROL HCL 0.63 MG/3 ML VIAL.NEB. IH SCH ×3 (08:28→20:26)
[2023-01-09 09:17] LABS: HEMOGLOBIN 10.3 GM/dL (11.7-16.9); MCH 30.2 pg (25.7-33.7); MCHC 34.4 g/dl (32.0-35.9); MEAN CELL VOLUME 87.7 fl (80-96); MEAN PLT VOLUME 9.3 fl (7.5-11.1); PLATELET COUNT 175 10^3/uL (134-434); RBC 3.43 M/mm3 (4.00-5.60); WHITE BLOOD COUNT 7.1 K/mm3 (4.0-10.0)
[2023-01-09 09:37] LABS: POTASSIUM 3.9 mmol/L (3.5-5.1)
[2023-01-09 09:40] LABS: ALBUMIN 2.3 g/dl (3.4-5.0); BLOOD UREA NITROGEN 99.1 mg/dL (7-18); CALCIUM 8.5 mg/dL (8.5-10.1)
[2023-01-09 09:43] LABS: CREATININE 2.2 mg/dL (0.55-1.3)
[2023-01-09 09:44] LABS: BILIRUBIN,TOTAL 0.9 mg/dL (0.2-1)
[2023-01-09 09:45] LABS: TOT PROT 5.7 g/dl (6.4-8.2)
[2023-01-09] MEDS: ASCORBIC ACID 500 MG TABLET (FP) PO SCH (10:19)
[2023-01-09] MEDS: metoPROLOL SUCCINATE 25 MG TAB.SR.24H (FP) PO SCH ×2 (10:19→21:18)
[2023-01-09] MEDS: FUROSEMIDE 40 MG/4 ML INJECTABLE VIAL IVPUSH SCH (10:20)
[2023-01-09] MEDS: BACITRACIN ZINC 15 GM TUBE TOPICAL OINTMENT TP SCH (10:20)
[2023-01-09] MEDS: POTASSIUM CHLORIDE TABS 20 MEQ TABLET.ER (FP) PO SCH ×2 (10:20→21:15)
[2023-01-09] MEDS: valACYclovir HCL 500 MG TABLET (FP) PO SCH ×2 (10:20→21:15)
[2023-01-09] MEDS: MULTIVITAMINS (DAILY MVI) TABLET (FP) PO SCH (10:20)
[2023-01-09] MEDS: FLUTICASONE/UMECLIDIN/VILANTER(200-62.5-25 TRELEGY ELLIPTA) INAHLER IH SCH (10:20)
[2023-01-09] MEDS: AMINO ACIDS/PROTEIN HYDROLYS 30 ML LIQUID.PKT PO SCH ×2 (10:23→18:09)
[2023-01-09] MEDS: NYSTATIN POWDER 100,000 UNITS/GM - 15 GM TOPICAL POWDER TP SCH ×4 (13:10→21:18)
[2023-01-09] MEDS: RIVAROXABAN 15 MG TABLET PO SCH (18:09)
[2023-01-09] MEDS: TAMSULOSIN HCL 0.4 MG CAP PO SCH (21:15)
[2023-01-09] MEDS: ZINC OXIDE 20% TOPICAL OINTMENT 30 GM TUBE TP SCH (22:52)
[2023-01-10] MEDS: NYSTATIN 500,000 UNITS/5 ML SUSPENSION PO SCH ×4 (05:50→23:44)
[2023-01-10] MEDS: NYSTATIN POWDER 100,000 UNITS/GM - 15 GM TOPICAL POWDER TP SCH ×3 (05:51→21:53)
[2023-01-10] MEDS: LEVALBUTEROL HCL 0.63 MG/3 ML VIAL.NEB. IH SCH ×3 (07:42→20:58)
[2023-01-10] MEDS: AMINO ACIDS/PROTEIN HYDROLYS 30 ML LIQUID.PKT PO SCH ×2 (08:17→17:31)
[2023-01-10 08:24] LABS: POTASSIUM 3.7 mmol/L (3.5-5.1)
[2023-01-10 08:32] LABS: BLOOD UREA NITROGEN 103.6 mg/dL (7-18)
[2023-01-10 08:33] LABS: MAGNESIUM 2.5 mg/dL (1.8-2.4)
[2023-01-10 08:35] LABS: CREATININE 1.9 mg/dL (0.55-1.3); PHOSPHOROUS 3.4 mg/dL (2.5-4.9)
[2023-01-10 08:38] LABS: BILIRUBIN,TOTAL 0.9 mg/dL (0.2-1)
[2023-01-10 08:49] LABS: HEMATOCRIT 26.2 % (35.4-49); HEMOGLOBIN 8.5 GM/dL (11.7-16.9); MCH 29.3 pg (25.7-33.7); MCHC 32.4 g/dl (32.0-35.9); MEAN CELL VOLUME 90.2 fl (80-96); MEAN PLT VOLUME 9.3 fl (7.5-11.1); PLATELET COUNT 142 10^3/uL (134-434); WHITE BLOOD COUNT 5.7 K/mm3 (4.0-10.0)
[2023-01-10 09:47] LABS: ANISOCYTOSIS 1+; MACROCYTOSIS 0
[2023-01-10] MEDS: FUROSEMIDE 40 MG/4 ML INJECTABLE VIAL IVPUSH SCH (09:51)
[2023-01-10] MEDS: ASCORBIC ACID 500 MG TABLET (FP) PO SCH (09:52)
[2023-01-10] MEDS: metoPROLOL SUCCINATE 25 MG TAB.SR.24H (FP) PO SCH ×2 (09:52→21:55)
[2023-01-10] MEDS: POTASSIUM CHLORIDE TABS 20 MEQ TABLET.ER (FP) PO SCH ×2 (09:52→21:54)
[2023-01-10] MEDS: valACYclovir HCL 500 MG TABLET (FP) PO SCH ×2 (09:52→21:55)
[2023-01-10] MEDS: MULTIVITAMINS (DAILY MVI) TABLET (FP) PO SCH (09:52)
[2023-01-10] MEDS: FLUTICASONE/UMECLIDIN/VILANTER(200-62.5-25 TRELEGY ELLIPTA) INAHLER IH SCH (09:53)
[2023-01-10] MEDS: BACITRACIN ZINC 15 GM TUBE TOPICAL OINTMENT TP SCH (09:53)
[2023-01-10 11:26] LABS: HEMATOCRIT 27.8 % (35.4-49); HEMOGLOBIN 9.1 GM/dL (11.7-16.9); MCH 29.4 pg (25.7-33.7); MCHC 32.5 g/dl (32.0-35.9); MEAN CELL VOLUME 90.3 fl (80-96); MEAN PLT VOLUME 9.4 fl (7.5-11.1); PLATELET COUNT 147 10^3/uL (134-434); RBC 3.08 M/mm3 (4.00-5.60); RDW 18.2 % (11.9-15.9); WHITE BLOOD COUNT 6.1 K/mm3 (4.0-10.0)
[2023-01-10] MEDS: ZINC OXIDE 20% TOPICAL OINTMENT 30 GM TUBE TP SCH ×2 (13:17→21:53)
[2023-01-10] MEDS: ROFLUMILAST 500 MCG TABLET PO SCH (15:17)
[2023-01-10] MEDS: RIVAROXABAN 15 MG TABLET PO SCH (17:31)
[2023-01-10] MEDS: TAMSULOSIN HCL 0.4 MG CAP PO SCH (21:54)
[2023-01-10] MEDS: MONTELUKAST NA 5 MG TAB.CHEW PO SCH (21:55)
[2023-01-11] MEDS: NYSTATIN POWDER 100,000 UNITS/GM - 15 GM TOPICAL POWDER TP SCH ×3 (05:43→22:03)
[2023-01-11] MEDS: NYSTATIN 500,000 UNITS/5 ML SUSPENSION PO SCH ×3 (05:43→17:09)
[2023-01-11] MEDS: LEVALBUTEROL HCL 0.63 MG/3 ML VIAL.NEB. IH SCH ×2 (07:40→15:18)
[2023-01-11] MEDS: AMINO ACIDS/PROTEIN HYDROLYS 30 ML LIQUID.PKT PO SCH ×2 (08:01→17:08)
[2023-01-11 08:13] LABS: HEMATOCRIT 25.3 % (35.4-49); HEMOGLOBIN 8.6 GM/dL (11.7-16.9); MCH 29.9 pg (25.7-33.7); MCHC 33.9 g/dl (32.0-35.9); MEAN CELL VOLUME 88.2 fl (80-96); MEAN PLT VOLUME 9.4 fl (7.5-11.1); PLATELET COUNT 144 10^3/uL (134-434); RBC 2.87 M/mm3 (4.00-5.60); RDW 17.7 % (11.9-15.9); WHITE BLOOD COUNT 6.5 K/mm3 (4.0-10.0)
[2023-01-11 08:20] LABS: BLOOD UREA NITROGEN 103.2 mg/dL (7-18); PHOSPHOROUS 3.3 mg/dL (2.5-4.9)
[2023-01-11 08:21] LABS: CALCIUM 7.9 mg/dL (8.5-10.1)
[2023-01-11 08:22] LABS: BILIRUBIN,TOTAL 0.8 mg/dL (0.2-1); MAGNESIUM 2.5 mg/dL (1.8-2.4); TOT PROT 5.4 g/dl (6.4-8.2)
[2023-01-11 08:23] LABS: CREATININE 2.1 mg/dL (0.55-1.3)
[2023-01-11 09:07] LABS: ANISOCYTOSIS 0; HELMET CELLS 0; HOWELL-JOLLY BODIES 0; MACROCYTOSIS 0; OVALOCYTE 0; ROULEAU 0; SICKELED CELLS 0; TARGET CELLS 0; TEAR DROP CELLS 0; TOXIC GRANULATION 0
[2023-01-11] MEDS: valACYclovir HCL 500 MG TABLET (FP) PO SCH ×2 (09:53→22:04)
[2023-01-11] MEDS: MULTIVITAMINS (DAILY MVI) TABLET (FP) PO SCH (09:53)
[2023-01-11] MEDS: metoPROLOL SUCCINATE 25 MG TAB.SR.24H (FP) PO SCH ×2 (09:53→22:04)
[2023-01-11] MEDS: POTASSIUM CHLORIDE TABS 20 MEQ TABLET.ER (FP) PO SCH ×2 (09:54→22:03)
[2023-01-11] MEDS: ASCORBIC ACID 500 MG TABLET (FP) PO SCH (09:54)
[2023-01-11] MEDS: FUROSEMIDE 40 MG/4 ML INJECTABLE VIAL IVPUSH SCH (09:56)
[2023-01-11] MEDS: BACITRACIN ZINC 15 GM TUBE TOPICAL OINTMENT TP SCH (09:57)
[2023-01-11] MEDS: ROFLUMILAST 500 MCG TABLET PO SCH (10:02)
[2023-01-11] MEDS: FLUTICASONE/UMECLIDIN/VILANTER(200-62.5-25 TRELEGY ELLIPTA) INAHLER IH SCH (10:23)
[2023-01-11] MEDS: ZINC OXIDE 20% TOPICAL OINTMENT 30 GM TUBE TP SCH ×2 (10:26→22:04)
[2023-01-11] MEDS: RIVAROXABAN 15 MG TABLET PO SCH (17:09)
[2023-01-11] MEDS: TAMSULOSIN HCL 0.4 MG CAP PO SCH (22:03)
[2023-01-11] MEDS: MONTELUKAST NA 5 MG TAB.CHEW PO SCH (22:04)
[2023-01-12] MEDS: NYSTATIN 500,000 UNITS/5 ML SUSPENSION PO SCH ×4 (00:15→17:27)
[2023-01-12] MEDS: NYSTATIN POWDER 100,000 UNITS/GM - 15 GM TOPICAL POWDER TP SCH ×3 (06:53→21:25)
[2023-01-12] MEDS: AMINO ACIDS/PROTEIN HYDROLYS 30 ML LIQUID.PKT PO SCH ×2 (08:00→17:26)
[2023-01-12 08:01] LABS: HEMATOCRIT 26.9 % (35.4-49); HEMOGLOBIN 8.7 GM/dL (11.7-16.9); MCH 29.3 pg (25.7-33.7); MCHC 32.3 g/dl (32.0-35.9); MEAN CELL VOLUME 90.7 fl (80-96); MEAN PLT VOLUME 9.4 fl (7.5-11.1); PLATELET COUNT 141 10^3/uL (134-434); RBC 2.97 M/mm3 (4.00-5.60); RDW 18.3 % (11.9-15.9); WHITE BLOOD COUNT 7.1 K/mm3 (4.0-10.0)
[2023-01-12 08:14] LABS: CHLORIDE 94 mmol/L (98-107); POTASSIUM 4.2 mmol/L (3.5-5.1); SODIUM 139 mmol/L (136-145)
[2023-01-12 08:26] LABS: ALBUMIN 2.3 g/dl (3.4-5.0); ANION GAP 6 mmol/L (4-13); CALCIUM 8.2 mg/dL (8.5-10.1); CO2 39 mmol/L (21-32); GLUCOSE,RANDOM 110 mg/dL (74-106); MAGNESIUM 2.8 mg/dL (1.8-2.4)
[2023-01-12 08:27] LABS: SGPT/ALT 67 U/L (13-61)
[2023-01-12 08:28] LABS: TOT PROT 5.5 g/dl (6.4-8.2)
[2023-01-12 08:29] LABS: BILIRUBIN,TOTAL 0.8 mg/dL (0.2-1); PHOSPHOROUS 3.6 mg/dL (2.5-4.9)
[2023-01-12 08:30] LABS: ALK PHOS 114 U/L (45-117); CREATININE 2.2 mg/dL (0.55-1.3); SGOT/AST 40 U/L (15-37)
[2023-01-12 08:34] LABS: BLOOD UREA NITROGEN 114.7 mg/dL (7-18)
[2023-01-12] MEDS: metoPROLOL SUCCINATE 25 MG TAB.SR.24H (FP) PO SCH ×2 (09:23→21:25)
[2023-01-12] MEDS: valACYclovir HCL 500 MG TABLET (FP) PO SCH ×2 (09:23→21:25)
[2023-01-12] MEDS: ASCORBIC ACID 500 MG TABLET (FP) PO SCH (09:23)
[2023-01-12] MEDS: MULTIVITAMINS (DAILY MVI) TABLET (FP) PO SCH (09:23)
[2023-01-12] MEDS: FUROSEMIDE 40 MG/4 ML INJECTABLE VIAL IVPUSH SCH (09:24)
[2023-01-12] MEDS: POTASSIUM CHLORIDE TABS 20 MEQ TABLET.ER (FP) PO SCH ×2 (09:24→21:24)
[2023-01-12] MEDS: ROFLUMILAST 500 MCG TABLET PO SCH (09:25)
[2023-01-12] MEDS: BACITRACIN ZINC 15 GM TUBE TOPICAL OINTMENT TP SCH (09:25)
[2023-01-12] MEDS: ZINC OXIDE 20% TOPICAL OINTMENT 30 GM TUBE TP SCH ×2 (09:25→21:25)
[2023-01-12] MEDS: FLUTICASONE/UMECLIDIN/VILANTER(200-62.5-25 TRELEGY ELLIPTA) INAHLER IH SCH (09:26)
[2023-01-12 12:38] LABS: ANISOCYTOSIS 2+; MACROCYTOSIS 0
[2023-01-12] MEDS: RIVAROXABAN 15 MG TABLET PO SCH (17:27)
[2023-01-12] MEDS: TAMSULOSIN HCL 0.4 MG CAP PO SCH (21:24)
[2023-01-12] MEDS: MONTELUKAST NA 5 MG TAB.CHEW PO SCH (21:25)
[2023-01-12 22:42] VITALS: BMI 30.5
[2023-01-13] MEDS: NYSTATIN 500,000 UNITS/5 ML SUSPENSION PO SCH ×4 (00:28→17:30)
[2023-01-13] MEDS: NYSTATIN POWDER 100,000 UNITS/GM - 15 GM TOPICAL POWDER TP SCH ×3 (06:38→22:24)
[2023-01-13 08:11] LABS: CHLORIDE 96 mmol/L (98-107); POTASSIUM 4.4 mmol/L (3.5-5.1); SODIUM 138 mmol/L (136-145)
[2023-01-13 08:15] LABS: GLUCOSE,RANDOM 106 mg/dL (74-106)
[2023-01-13 08:17] LABS: ALBUMIN 2.4 g/dl (3.4-5.0); ANION GAP 5 mmol/L (4-13); CO2 37 mmol/L (21-32)
[2023-01-13 08:18] LABS: MAGNESIUM 2.5 mg/dL (1.8-2.4)
[2023-01-13 08:20] LABS: SGPT/ALT 76 U/L (13-61)
[2023-01-13 08:21] LABS: PHOSPHOROUS 3.5 mg/dL (2.5-4.9); SGOT/AST 39 U/L (15-37)
[2023-01-13 08:22] LABS: ALK PHOS 119 U/L (45-117); BASO % 0.3 % (0-2.0); EOS % 1.4 % (0-4.5); HEMATOCRIT 26.7 % (35.4-49); HEMOGLOBIN 9.1 GM/dL (11.7-16.9); LYMPH % 11.4 % (8-40); MCH 30.5 pg (25.7-33.7); MCHC 34.2 g/dl (32.0-35.9); MEAN CELL VOLUME 89.2 fl (80-96); MEAN PLT VOLUME 9.6 fl (7.5-11.1); MONO % 5.7 % (3.8-10.2); NEUT % 81.2 % (42.8-82.8); PLATELET COUNT 151 10^3/uL (134-434); RBC 2.99 M/mm3 (4.00-5.60); RDW 18.4 % (11.9-15.9); TOT PROT 6.1 g/dl (6.4-8.2); WHITE BLOOD COUNT 7.6 K/mm3 (4.0-10.0)
[2023-01-13 08:26] LABS: BLOOD UREA NITROGEN 105.6 mg/dL (7-18)
[2023-01-13] MEDS: ASCORBIC ACID 500 MG TABLET (FP) PO SCH (09:39)
[2023-01-13] MEDS: MULTIVITAMINS (DAILY MVI) TABLET (FP) PO SCH (09:39)
[2023-01-13] MEDS: AMINO ACIDS/PROTEIN HYDROLYS 30 ML LIQUID.PKT PO SCH ×2 (09:39→17:30)
[2023-01-13] MEDS: ROFLUMILAST 500 MCG TABLET PO SCH (09:40)
[2023-01-13] MEDS: valACYclovir HCL 500 MG TABLET (FP) PO SCH ×2 (09:40→22:24)
[2023-01-13] MEDS: FLUTICASONE/UMECLIDIN/VILANTER(200-62.5-25 TRELEGY ELLIPTA) INAHLER IH SCH (09:41)
[2023-01-13] MEDS: BACITRACIN ZINC 15 GM TUBE TOPICAL OINTMENT TP SCH (09:41)
[2023-01-13] MEDS: FUROSEMIDE 40 MG/4 ML INJECTABLE VIAL IVPUSH SCH (09:49)
[2023-01-13] MEDS: ZINC OXIDE 20% TOPICAL OINTMENT 30 GM TUBE TP SCH ×2 (09:55→22:24)
[2023-01-13] MEDS: POTASSIUM CHLORIDE TABS 20 MEQ TABLET.ER (FP) PO SCH (09:55)
[2023-01-13] MEDS: POLYETHYLENE GLYCOL (HEALTHYLAX) 3350 17 GM PACKET PO SCH ×2 (14:08→22:25)
[2023-01-13] MEDS: RIVAROXABAN 15 MG TABLET PO SCH (17:30)
[2023-01-13] MEDS: TAMSULOSIN HCL 0.4 MG CAP PO SCH (22:24)
[2023-01-13] MEDS: MONTELUKAST NA 10 MG TABLET PO SCH (22:41)
[2023-01-14] MEDS: NYSTATIN 500,000 UNITS/5 ML SUSPENSION PO SCH ×5 (00:52→23:45)
[2023-01-14] MEDS: NYSTATIN POWDER 100,000 UNITS/GM - 15 GM TOPICAL POWDER TP SCH ×3 (06:02→22:59)
[2023-01-14] MEDS: AMINO ACIDS/PROTEIN HYDROLYS 30 ML LIQUID.PKT PO SCH ×2 (07:55→17:19)
[2023-01-14 08:25] LABS: HEMATOCRIT 25.3 % (35.4-49); HEMOGLOBIN 8.8 GM/dL (11.7-16.9); MCH 30.8 pg (25.7-33.7); MCHC 34.6 g/dl (32.0-35.9); MEAN CELL VOLUME 88.8 fl (80-96); MEAN PLT VOLUME 9.6 fl (7.5-11.1); PLATELET COUNT 138 10^3/uL (134-434); RBC 2.85 M/mm3 (4.00-5.60); RDW 18.6 % (11.9-15.9); WHITE BLOOD COUNT 6.6 K/mm3 (4.0-10.0)
[2023-01-14 08:47] LABS: ALBUMIN 2.3 g/dl (3.4-5.0)
[2023-01-14 08:48] LABS: MAGNESIUM 2.5 mg/dL (1.8-2.4)
[2023-01-14 08:50] LABS: CREATININE 2.1 mg/dL (0.55-1.3); PHOSPHOROUS 3.8 mg/dL (2.5-4.9)
[2023-01-14 08:52] LABS: BILIRUBIN,TOTAL 0.9 mg/dL (0.2-1); TOT PROT 5.7 g/dl (6.4-8.2)
[2023-01-14 09:52] LABS: ANISOCYTOSIS 0; MACROCYTOSIS 0
[2023-01-14] MEDS: FUROSEMIDE 40 MG/4 ML INJECTABLE VIAL IVPUSH SCH (10:40)
[2023-01-14] MEDS: metoPROLOL SUCCINATE 25 MG TAB.SR.24H (FP) PO SCH ×2 (10:40→22:58)
[2023-01-14] MEDS: POLYETHYLENE GLYCOL (HEALTHYLAX) 3350 17 GM PACKET PO SCH ×2 (10:40→22:54)
[2023-01-14] MEDS: valACYclovir HCL 500 MG TABLET (FP) PO SCH ×2 (10:40→22:55)
[2023-01-14] MEDS: MULTIVITAMINS (DAILY MVI) TABLET (FP) PO SCH (10:40)
[2023-01-14] MEDS: ASCORBIC ACID 500 MG TABLET (FP) PO SCH (10:40)
[2023-01-14] MEDS: ROFLUMILAST 500 MCG TABLET PO SCH (10:40)
[2023-01-14] MEDS: BACITRACIN ZINC 15 GM TUBE TOPICAL OINTMENT TP SCH (10:42)
[2023-01-14] MEDS: FLUTICASONE/UMECLIDIN/VILANTER(200-62.5-25 TRELEGY ELLIPTA) INAHLER IH SCH (10:43)
[2023-01-14] MEDS: ZINC OXIDE 20% TOPICAL OINTMENT 30 GM TUBE TP SCH ×2 (10:43→23:00)
[2023-01-14] MEDS: RIVAROXABAN 15 MG TABLET PO SCH (17:19)
[2023-01-14] MEDS: TAMSULOSIN HCL 0.4 MG CAP PO SCH (22:55)
[2023-01-14] MEDS: MONTELUKAST NA 10 MG TABLET PO SCH (22:55)
[2023-01-15] MEDS: NYSTATIN POWDER 100,000 UNITS/GM - 15 GM TOPICAL POWDER TP SCH ×3 (06:20→22:47)
[2023-01-15] MEDS: NYSTATIN 500,000 UNITS/5 ML SUSPENSION PO SCH ×3 (06:21→17:47)
[2023-01-15 07:16] LABS: HEMATOCRIT 25.6 % (35.4-49); HEMOGLOBIN 8.4 GM/dL (11.7-16.9); MCH 30.2 pg (25.7-33.7); MCHC 32.9 g/dl (32.0-35.9); MEAN CELL VOLUME 91.7 fl (80-96); MEAN PLT VOLUME 9.3 fl (7.5-11.1); PLATELET COUNT 131 10^3/uL (134-434); RBC 2.79 M/mm3 (4.00-5.60); RDW 19.7 % (11.9-15.9); WHITE BLOOD COUNT 6.9 K/mm3 (4.0-10.0)
[2023-01-15 08:07] LABS: POTASSIUM 4.1 mmol/L (3.5-5.1)
[2023-01-15 08:17] LABS: ALBUMIN 2.2 g/dl (3.4-5.0); BLOOD UREA NITROGEN 96.2 mg/dL (7-18); CALCIUM 8.1 mg/dL (8.5-10.1); MAGNESIUM 2.5 mg/dL (1.8-2.4)
[2023-01-15 08:19] LABS: BILIRUBIN,TOTAL 0.8 mg/dL (0.2-1); TOT PROT 5.5 g/dl (6.4-8.2)
[2023-01-15 08:20] LABS: CREATININE 2.2 mg/dL (0.55-1.3)
[2023-01-15 09:05] LABS: ANISOCYTOSIS 1+; MACROCYTOSIS 0
[2023-01-15] MEDS: BACITRACIN ZINC 15 GM TUBE TOPICAL OINTMENT TP SCH (09:44)
[2023-01-15] MEDS: AMINO ACIDS/PROTEIN HYDROLYS 30 ML LIQUID.PKT PO SCH ×2 (09:44→17:47)
[2023-01-15] MEDS: ASCORBIC ACID 500 MG TABLET (FP) PO SCH (09:45)
[2023-01-15] MEDS: metoPROLOL SUCCINATE 25 MG TAB.SR.24H (FP) PO SCH ×2 (09:45→22:47)
[2023-01-15] MEDS: valACYclovir HCL 500 MG TABLET (FP) PO SCH ×2 (09:45→22:47)
[2023-01-15] MEDS: MULTIVITAMINS (DAILY MVI) TABLET (FP) PO SCH (09:45)
[2023-01-15] MEDS: ROFLUMILAST 500 MCG TABLET PO SCH (09:45)
[2023-01-15] MEDS: FLUTICASONE/UMECLIDIN/VILANTER(200-62.5-25 TRELEGY ELLIPTA) INAHLER IH SCH (09:46)
[2023-01-15] MEDS: ZINC OXIDE 20% TOPICAL OINTMENT 30 GM TUBE TP SCH ×2 (09:46→22:48)
[2023-01-15] MEDS: FUROSEMIDE 40 MG/4 ML INJECTABLE VIAL IVPUSH SCH (12:52)
[2023-01-15] MEDS: RIVAROXABAN 15 MG TABLET PO SCH (17:47)
[2023-01-15] MEDS: MONTELUKAST NA 10 MG TABLET PO SCH (22:47)
[2023-01-15] MEDS: TAMSULOSIN HCL 0.4 MG CAP PO SCH (22:47)
[2023-01-16] MEDS: NYSTATIN 500,000 UNITS/5 ML SUSPENSION PO SCH ×5 (00:48→22:12)
[2023-01-16] MEDS: NYSTATIN POWDER 100,000 UNITS/GM - 15 GM TOPICAL POWDER TP SCH ×3 (06:38→22:13)
[2023-01-16 07:39] LABS: HEMATOCRIT 23.7 % (35.4-49); HEMOGLOBIN 7.9 GM/dL (11.7-16.9); MCH 30.9 pg (25.7-33.7); MCHC 33.6 g/dl (32.0-35.9); MEAN CELL VOLUME 92.1 fl (80-96); PLATELET COUNT 127 10^3/uL (134-434); RBC 2.57 M/mm3 (4.00-5.60); RDW 19.1 % (11.9-15.9); WHITE BLOOD COUNT 6.8 K/mm3 (4.0-10.0)
[2023-01-16 08:00] LABS: POTASSIUM 3.7 mmol/L (3.5-5.1)
[2023-01-16 08:10] LABS: ALBUMIN 2.1 g/dl (3.4-5.0); BLOOD UREA NITROGEN 90.9 mg/dL (7-18); MAGNESIUM 2.5 mg/dL (1.8-2.4)
[2023-01-16 08:13] LABS: BILIRUBIN,TOTAL 0.9 mg/dL (0.2-1); CREATININE 2.1 mg/dL (0.55-1.3); PHOSPHOROUS 4.1 mg/dL (2.5-4.9)
[2023-01-16 08:14] LABS: TOT PROT 5.2 g/dl (6.4-8.2)
[2023-01-16] MEDS: AMINO ACIDS/PROTEIN HYDROLYS 30 ML LIQUID.PKT PO SCH ×2 (10:13→17:11)
[2023-01-16] MEDS: valACYclovir HCL 500 MG TABLET (FP) PO SCH ×2 (10:13→22:11)
[2023-01-16] MEDS: FUROSEMIDE 40 MG/4 ML INJECTABLE VIAL IVPUSH SCH (10:13)
[2023-01-16] MEDS: metoPROLOL SUCCINATE 25 MG TAB.SR.24H (FP) PO SCH (10:13)
[2023-01-16] MEDS: ASCORBIC ACID 500 MG TABLET (FP) PO SCH (10:13)
[2023-01-16] MEDS: MULTIVITAMINS (DAILY MVI) TABLET (FP) PO SCH (10:13)
[2023-01-16 10:24] LABS: ANISOCYTOSIS 2+; MACROCYTOSIS 0
[2023-01-16] MEDS: ROFLUMILAST 500 MCG TABLET PO SCH (14:47)
[2023-01-16] MEDS: BACITRACIN ZINC 15 GM TUBE TOPICAL OINTMENT TP SCH (14:47)
[2023-01-16] MEDS: ZINC OXIDE 20% TOPICAL OINTMENT 30 GM TUBE TP SCH ×2 (14:48→22:13)
[2023-01-16] MEDS: FLUTICASONE/UMECLIDIN/VILANTER(200-62.5-25 TRELEGY ELLIPTA) INAHLER IH SCH (14:48)
[2023-01-16] MEDS: RIVAROXABAN 15 MG TABLET PO SCH (17:11)
[2023-01-16] MEDS: TAMSULOSIN HCL 0.4 MG CAP PO SCH (22:11)
[2023-01-16] MEDS: MONTELUKAST NA 10 MG TABLET PO SCH (22:11)
[2023-01-17] MEDS: NYSTATIN 500,000 UNITS/5 ML SUSPENSION PO SCH ×4 (03:30→17:09)
[2023-01-17] MEDS: NYSTATIN POWDER 100,000 UNITS/GM - 15 GM TOPICAL POWDER TP SCH ×3 (06:17→22:20)
[2023-01-17] MEDS: AMINO ACIDS/PROTEIN HYDROLYS 30 ML LIQUID.PKT PO SCH ×2 (08:12→17:09)
[2023-01-17 08:14] LABS: HEMATOCRIT 23.2 % (35.4-49); HEMOGLOBIN 7.9 GM/dL (11.7-16.9); MCH 30.7 pg (25.7-33.7); MEAN CELL VOLUME 90.1 fl (80-96); PLATELET COUNT 132 10^3/uL (134-434); RBC 2.58 M/mm3 (4.00-5.60); RDW 19.5 % (11.9-15.9); WHITE BLOOD COUNT 7.1 K/mm3 (4.0-10.0)
[2023-01-17 08:29] LABS: POTASSIUM 3.6 mmol/L (3.5-5.1)
[2023-01-17 08:37] LABS: ALBUMIN 2.2 g/dl (3.4-5.0); BLOOD UREA NITROGEN 88.7 mg/dL (7-18); PHOSPHOROUS 4.1 mg/dL (2.5-4.9)
[2023-01-17 08:38] LABS: CALCIUM 7.9 mg/dL (8.5-10.1); MAGNESIUM 2.5 mg/dL (1.8-2.4); TOT PROT 5.4 g/dl (6.4-8.2)
[2023-01-17 08:39] LABS: BILIRUBIN,TOTAL 0.8 mg/dL (0.2-1)
[2023-01-17 08:40] LABS: CREATININE 2.1 mg/dL (0.55-1.3)
[2023-01-17 09:45] LABS: ANISOCYTOSIS 3+; MACROCYTOSIS 0; TEAR DROP CELLS 2+
[2023-01-17] MEDS: ASCORBIC ACID 500 MG TABLET (FP) PO SCH (09:51)
[2023-01-17] MEDS: MULTIVITAMINS (DAILY MVI) TABLET (FP) PO SCH (09:51)
[2023-01-17] MEDS: ROFLUMILAST 500 MCG TABLET PO SCH (09:52)
[2023-01-17] MEDS: FUROSEMIDE 40 MG/4 ML INJECTABLE VIAL IVPUSH SCH (09:52)
[2023-01-17] MEDS: valACYclovir HCL 500 MG TABLET (FP) PO SCH ×2 (09:52→22:13)
[2023-01-17] MEDS: BACITRACIN ZINC 15 GM TUBE TOPICAL OINTMENT TP SCH (09:55)
[2023-01-17] MEDS: FLUTICASONE/UMECLIDIN/VILANTER(200-62.5-25 TRELEGY ELLIPTA) INAHLER IH SCH (09:55)
[2023-01-17] MEDS: ZINC OXIDE 20% TOPICAL OINTMENT 30 GM TUBE TP SCH ×2 (09:56→22:19)
[2023-01-17] MEDS: RIVAROXABAN 15 MG TABLET PO SCH (17:09)
[2023-01-17] MEDS: TAMSULOSIN HCL 0.4 MG CAP PO SCH (22:12)
[2023-01-17] MEDS: MONTELUKAST NA 10 MG TABLET PO SCH (22:13)
[2023-01-18] MEDS: NYSTATIN 500,000 UNITS/5 ML SUSPENSION PO SCH ×5 (04:05→23:27)
[2023-01-18] MEDS: NYSTATIN POWDER 100,000 UNITS/GM - 15 GM TOPICAL POWDER TP SCH ×3 (06:39→21:54)
[2023-01-18 07:42] LABS: HEMATOCRIT 23.3 % (35.4-49); HEMOGLOBIN 7.7 GM/dL (11.7-16.9); MCH 30.8 pg (25.7-33.7); MCHC 33.2 g/dl (32.0-35.9); MEAN CELL VOLUME 92.7 fl (80-96); MEAN PLT VOLUME 9.2 fl (7.5-11.1); PLATELET COUNT 142 10^3/uL (134-434); RBC 2.51 M/mm3 (4.00-5.60); RDW 19.2 % (11.9-15.9); WHITE BLOOD COUNT 7.8 K/mm3 (4.0-10.0)
[2023-01-18 07:53] LABS: POTASSIUM 3.7 mmol/L (3.5-5.1)
[2023-01-18 08:02] LABS: CALCIUM 8.1 mg/dL (8.5-10.1)
[2023-01-18 08:03] LABS: ALBUMIN 2.1 g/dl (3.4-5.0); BLOOD UREA NITROGEN 82.6 mg/dL (7-18); MAGNESIUM 2.5 mg/dL (1.8-2.4)
[2023-01-18 08:06] LABS: PHOSPHOROUS 4.2 mg/dL (2.5-4.9)
[2023-01-18 08:07] LABS: BILIRUBIN,TOTAL 0.7 mg/dL (0.2-1); TOT PROT 5.2 g/dl (6.4-8.2)
[2023-01-18] MEDS: MULTIVITAMINS (DAILY MVI) TABLET (FP) PO SCH (09:02)
[2023-01-18] MEDS: AMINO ACIDS/PROTEIN HYDROLYS 30 ML LIQUID.PKT PO SCH ×2 (09:02→17:43)
[2023-01-18] MEDS: valACYclovir HCL 500 MG TABLET (FP) PO SCH ×2 (09:02→21:49)
[2023-01-18] MEDS: ASCORBIC ACID 500 MG TABLET (FP) PO SCH (09:02)
[2023-01-18] MEDS: ROFLUMILAST 500 MCG TABLET PO SCH (09:02)
[2023-01-18] MEDS: TORSEMIDE 20 MG TABLET (FP) PO SCH (09:12)
[2023-01-18] MEDS: BACITRACIN ZINC 15 GM TUBE TOPICAL OINTMENT TP SCH (09:13)
[2023-01-18] MEDS: ZINC OXIDE 20% TOPICAL OINTMENT 30 GM TUBE TP SCH ×2 (09:13→21:55)
[2023-01-18 10:02] LABS: ANISOCYTOSIS 2+; MACROCYTOSIS 0
[2023-01-18] MEDS: FLUTICASONE/UMECLIDIN/VILANTER(200-62.5-25 TRELEGY ELLIPTA) INAHLER IH SCH (12:46)
[2023-01-18] MEDS: RIVAROXABAN 15 MG TABLET PO SCH (17:43)
[2023-01-18] MEDS: MONTELUKAST NA 10 MG TABLET PO SCH (21:49)
[2023-01-18] MEDS: TAMSULOSIN HCL 0.4 MG CAP PO SCH (21:49)
[2023-01-18] MEDS: metoPROLOL SUCCINATE 25 MG TAB.SR.24H (FP) PO SCH (21:49)
[2023-01-19] MEDS: NYSTATIN 500,000 UNITS/5 ML SUSPENSION PO SCH ×3 (06:55→18:10)
[2023-01-19] MEDS: NYSTATIN POWDER 100,000 UNITS/GM - 15 GM TOPICAL POWDER TP SCH ×3 (06:56→21:52)
[2023-01-19 07:01] LABS: HEMOGLOBIN 7.8 GM/dL (11.7-16.9); MCH 30.4 pg (25.7-33.7); MCHC 32.5 g/dl (32.0-35.9); MEAN CELL VOLUME 93.6 fl (80-96); MEAN PLT VOLUME 9.2 fl (7.5-11.1); PLATELET COUNT 146 10^3/uL (134-434); RBC 2.57 M/mm3 (4.00-5.60); RDW 20.9 % (11.9-15.9); WHITE BLOOD COUNT 7.9 K/mm3 (4.0-10.0)
[2023-01-19 07:19] LABS: POTASSIUM 3.2 mmol/L (3.5-5.1)
[2023-01-19 07:24] LABS: CALCIUM 7.7 mg/dL (8.5-10.1)
[2023-01-19 07:25] LABS: MAGNESIUM 2.2 mg/dL (1.8-2.4)
[2023-01-19 07:28] LABS: PHOSPHOROUS 4.1 mg/dL (2.5-4.9)
[2023-01-19 07:30] LABS: BILIRUBIN,TOTAL 0.8 mg/dL (0.2-1); TOT PROT 5.1 g/dl (6.4-8.2)
[2023-01-19 09:44] LABS: ANISOCYTOSIS 3+; MACROCYTOSIS 0; TARGET CELLS 1+
[2023-01-19] MEDS: KCL 10 MEQ IVPB 10 MEQ/100 ML INFUS.BAG IVPB SCH ×3 (10:47→18:10)
[2023-01-19] MEDS: valACYclovir HCL 500 MG TABLET (FP) PO SCH ×2 (10:47→21:46)
[2023-01-19] MEDS: TORSEMIDE 20 MG TABLET (FP) PO SCH (10:47)
[2023-01-19] MEDS: metoPROLOL SUCCINATE 25 MG TAB.SR.24H (FP) PO SCH ×2 (10:47→21:47)
[2023-01-19] MEDS: MULTIVITAMINS (DAILY MVI) TABLET (FP) PO SCH (10:48)
[2023-01-19] MEDS: AMINO ACIDS/PROTEIN HYDROLYS 30 ML LIQUID.PKT PO SCH ×2 (10:48→18:10)
[2023-01-19] MEDS: ROFLUMILAST 500 MCG TABLET PO SCH (10:48)
[2023-01-19] MEDS: ASCORBIC ACID 500 MG TABLET (FP) PO SCH (10:48)
[2023-01-19] MEDS: ZINC OXIDE 20% TOPICAL OINTMENT 30 GM TUBE TP SCH ×2 (13:01→21:47)
[2023-01-19] MEDS: FLUTICASONE/UMECLIDIN/VILANTER(200-62.5-25 TRELEGY ELLIPTA) INAHLER IH SCH (13:01)
[2023-01-19] MEDS: BACITRACIN ZINC 15 GM TUBE TOPICAL OINTMENT TP SCH (13:01)
[2023-01-19] MEDS: RIVAROXABAN 15 MG TABLET PO SCH (18:10)
[2023-01-19] MEDS: TAMSULOSIN HCL 0.4 MG CAP PO SCH (21:46)
[2023-01-19] MEDS: MONTELUKAST NA 10 MG TABLET PO SCH (21:46)
[2023-01-19 22:27] VITALS: RESP 20
[2023-01-20] MEDS: NYSTATIN 500,000 UNITS/5 ML SUSPENSION PO SCH ×3 (00:05→12:11)
[2023-01-20] MEDS ORDERED: POTASSIUM CHLORIDE TABS 20 MEQ TABLET.ER (FP) PO ONE (06:33)
[2023-01-20] MEDS: NYSTATIN POWDER 100,000 UNITS/GM - 15 GM TOPICAL POWDER TP SCH (06:51)
[2023-01-20 08:00] LABS: HEMATOCRIT 26.3 % (35.4-49); HEMOGLOBIN 8.7 GM/dL (11.7-16.9); MCH 30.4 pg (25.7-33.7); MCHC 33.2 g/dl (32.0-35.9); MEAN CELL VOLUME 91.8 fl (80-96); PLATELET COUNT 151 10^3/uL (134-434); RBC 2.87 M/mm3 (4.00-5.60); RDW 18.9 % (11.9-15.9); WHITE BLOOD COUNT 8.5 K/mm3 (4.0-10.0)
[2023-01-20 08:03] LABS: BLOOD UREA NITROGEN 76.2 mg/dL (7-18)
[2023-01-20 08:04] LABS: ALBUMIN 2.1 g/dl (3.4-5.0); CALCIUM 7.7 mg/dL (8.5-10.1)
[2023-01-20 08:05] LABS: PHOSPHOROUS 4.2 mg/dL (2.5-4.9)
[2023-01-20 08:07] LABS: BILIRUBIN,TOTAL 0.8 mg/dL (0.2-1); TOT PROT 5.2 g/dl (6.4-8.2)
[2023-01-20 09:31] LABS: ANISOCYTOSIS 1+; MACROCYTOSIS 1+; OVALOCYTE 1+
[2023-01-20] MEDS: ASCORBIC ACID 500 MG TABLET (FP) PO SCH (10:25)
[2023-01-20] MEDS: valACYclovir HCL 500 MG TABLET (FP) PO SCH (10:25)
[2023-01-20] MEDS: MULTIVITAMINS (DAILY MVI) TABLET (FP) PO SCH (10:25)
[2023-01-20] MEDS: AMINO ACIDS/PROTEIN HYDROLYS 30 ML LIQUID.PKT PO SCH (10:26)
[2023-01-20] MEDS: BACITRACIN ZINC 15 GM TUBE TOPICAL OINTMENT TP SCH (10:26)
[2023-01-20] MEDS: ROFLUMILAST 500 MCG TABLET PO SCH (10:26)
[2023-01-20] MEDS: ZINC OXIDE 20% TOPICAL OINTMENT 30 GM TUBE TP SCH (10:29)
[2023-01-20] MEDS: FLUTICASONE/UMECLIDIN/VILANTER(200-62.5-25 TRELEGY ELLIPTA) INAHLER IH SCH (10:29)
[2023-01-20] MEDS: TORSEMIDE 20 MG TABLET (FP) PO SCH (12:12)
[2023-01-20] MEDS: metoPROLOL SUCCINATE 25 MG TAB.SR.24H (FP) PO SCH (12:12)
[2023-01-20 13:21] VITALS: BP 112/56; PULSE 106; TEMP 98.2
== END 2023-01-20 12:29 | DRG 871 ==
LOC: JER 11:07 → JERBED 15:01 → JICU 16:57 → J4W 12-24 23:10
PROVIDERS: ADMIT Internal Medicine Pulmonary Disease; ATTEND Internal Medicine
DX: A41.89 Other specified sepsis (principal); A48.1 Legionnaires' disease; I50.43 Acute on chronic combined systolic (congestive) and diastolic (congestive) heart failure; J18.9 Pneumonia, unspecified organism; R65.21 Severe sepsis with septic shock; J96.21 Acute and chronic respiratory failure with hypoxia; N17.9 Acute kidney failure, unspecified; J44.1 Chronic obstructive pulmonary disease with (acute) exacerbation; J44.0 Chronic obstructive pulmonary disease with (acute) lower respiratory infection; I24.89 Other forms of acute ischemic heart disease; I13.0 Hypertensive heart and chronic kidney disease with heart failure and stage 1 through stage 4 chronic kidney disease, or unspecified chronic kidney disease; B00.2 Herpesviral gingivostomatitis and pharyngotonsillitis; N18.9 Chronic kidney disease, unspecified; E78.5 Hyperlipidemia, unspecified; I48.0 Paroxysmal atrial fibrillation; D72.829 Elevated white blood cell count, unspecified; I35.0 Nonrheumatic aortic (valve) stenosis; I44.0 Atrioventricular block, first degree; I27.20 Pulmonary hypertension, unspecified; I25.10 Atherosclerotic heart disease of native coronary artery without angina pectoris; R31.9 Hematuria, unspecified; E87.6 Hypokalemia; E04.1 Nontoxic single thyroid nodule; N40.0 Benign prostatic hyperplasia without lower urinary tract symptoms; Z85.46 Personal history of malignant neoplasm of prostate; Z95.1 Presence of aortocoronary bypass graft; Z96.653 Presence of artificial knee joint, bilateral; Z99.81 Dependence on supplemental oxygen
CPT/HCPCS: 0241U-QW; 36415; 36430; 71045-TC-FY; 76775-TC; 76856-TC; 80048; 80053; 81003; 82550; 82607; 82746; 82803; 83605; 83735; 83880; 84100; 84132; 84439; 84443; 84480; 84481; 84484; 85025; 85027; 85610; 85730; 86644; 86645; 86664; 86713; 86790; 86850; 86900; 86901; 86922; 87040; 87070; 87077; 87081; 87086; 87186; 87205; 87389; 87529; 87635; 87651; 87899; 93005; 93010; 94640; 97116-GP; 97162-GP; 99291; G0480; P9058